=== PATIENT | male | born 1945 | race Caucasian/White ===

== ENCOUNTER → 2020-09-15 | Outpatient (CLI) | payer MEDICARE, OTHER ==
[~2020-09-15] MED LIST: DICL25TA PO; GADOBUTROL 10 MMOL/10 ML (GADAVIST) VIAL IV ONE; TAMS0.4C2 PO; TMSL.4C PO
[2020-09-15 12:37] LABS: BUN/CREATININE RATIO 26; CREATININE SERUM 1.02 MG/DL (0.60-1.30); GFR ESTIMATED > 60
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
== END ==
LOC: RAD 13:15
PROVIDERS: ATTEND Family Medicine
DX: G93.9 Disorder of brain, unspecified (principal)
CPT/HCPCS: 36415; 70553; 82565; 84520

== ENCOUNTER 2020-10-14 11:18 | Inpatient (IN) | payer MEDICARE, OTHER ==
[~2020-10-14] VITALS: Ht 180.3 cm; Wt 85.0 kg
[~2020-10-14 11:18] MED LIST changes: -GADOBUTROL 10 MMOL/10 ML (GADAVIST) VIAL IV ONE
[2020-10-14] MEDS ORDERED: CALCIUM CARBONATE 500 MG (TUMS) TAB.CHEW PO PRN (12:30)
[2020-10-14] MEDS ORDERED: LACTULOSE SYRUP 10GM/15ML (ENULOSE) 30ML UDC PO PRN (12:30)
[2020-10-14] MEDS ORDERED: diphenhydrAMINE 25 MG TAB (BENADRYL) PO PRN (12:30)
[2020-10-14] MEDS ORDERED: FLEET ENEMA ADULT 1 EA BTL PR PRN (12:30)
[2020-10-14] MEDS ORDERED: MELATONIN 3 MG TABLET PO PRN (12:30)
[2020-10-14] MEDS ORDERED: ONDANSETRON 4 MG (ZOFRAN) ORAL DISSOLVE TAB PO PRN (12:30)
[2020-10-14] MEDS ORDERED: DOCUSATE SODIUM 100 MG (COLACE) CAP PO PRN (12:30)
[2020-10-14] MEDS ORDERED: LOPERAMIDE 2 MG (IMODIUM) TABLET PO PRN (12:30)
[2020-10-14] MEDS ORDERED: AMLO10TA4 PO ×2 (14:26→14:30)
[2020-10-14] MEDS ORDERED: MELA5CAP PO (14:29)
[2020-10-14] MEDS ORDERED: ACET325C7 PO (14:31)
[2020-10-14] MEDS ORDERED: ACHD5005 PO (14:34)
[2020-10-14] MEDS ORDERED: LEVE500T99 PO (14:36)
[2020-10-14] MEDS ORDERED: DEXA4TAB66 PO ×2 (14:40→14:42)
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
--- NOTE | 2020-10-14 16:43 | NUR ---
EVANGELINA MATTHEWS admitted to room 231, with an admitting diagnosis of NTBI; S/P CRANIOTOMY, on 10/14/2020 from [facility] via [facility], accompanied by ENVIRONMENTAL TECHNICAL OFFICER. EVANGELINA MATTHEWS introduced to surroundings, call light, bed controls, phone, TV, temperature control, lights, meal times, smoking policy, visitor policy, side rail policy, bathrooms and showers. Patient Rights given to patient in the handbook.EVANGELINA MATTHEWS verbalizes understanding that [facility] is not responsible for the loss or damage to any personal effects or valuables that are kept in the patients posession during their hospitalization. EVANGELINA MATTHEWS verbalizes understanding of Interdisciplinary Patient Education. Patient and/or family were informed about the Rapid Response Team and its purpose. Patient received Patient Rights Booklet, which includes Privacy Act Statement and Data Collection Information Summary.
[2020-10-14] MEDS ORDERED: NON-FORMULARY MEDICATION 1 EA EA (Melatonin 5 MG) PO PRN (17:45)
[2020-10-14] MEDS ORDERED: ACETAMINOPHEN 325 MG PO PRN (17:45)
[2020-10-14] MEDS ORDERED: MELATONIN 10 MG TABLET PO PRN (17:45)
[2020-10-14 18:00] VITALS: BP 140/80
[2020-10-14 18:23] VITALS: BP 140/80
[2020-10-14] MEDS ORDERED: LACTULOSE SYRUP 10GM/15ML (ENULOSE) 30ML UDC PO NR (19:00)
--- NOTE | 2020-10-14 19:27 | NUR ---
Bedside report received from TRISTAN ROSAS, assume care of pt
[2020-10-14 19:43] VITALS: BP 140/80
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
[2020-10-14 20:38] VITALS: BP 145/80
[2020-10-14] MEDS: LEVETIRACETAM 500 MG (KEPPRA) TAB PO SCH (20:46)
[2020-10-14] MEDS: SENNA W/DOCUSATE (SENOKOT S) TABLET PO SCH (20:46)
[2020-10-14] MEDS: DOCUSATE SODIUM 100 MG (COLACE) CAP PO SCH (20:46)
--- NOTE | 2020-10-14 20:46 | NUR ---
Pt took all laxatives & requested Dulcolax suppository, pt takes meds well with water
[2020-10-14] MEDS: polyethylene glycoL POWDER 17 GM (MIRALAX) PACK PO SCH (20:51)
[2020-10-14] MEDS: amLODIPine 10 MG (NORVASC) TAB PO SCH (20:54)
[2020-10-14] MEDS: BISACODYL 10 MG SUPP (DULCOLAX) PR PRN (20:56)
--- NOTE | 2020-10-14 22:15 | NUR ---
pt had large soft brown BM on bedpan, states feel so much better
[2020-10-15 05:29] VITALS: BP 149/70
[2020-10-15 06:36] LABS: BASOPHILS % (AUTO) 0 % (0-10); EOSINOPHILS % (AUTO) 0 % (0-10); HEMATOCRIT 41 % (40-54); HEMOGLOBIN 13.9 g/dL (13.3-17.7); LYMPHOCYTES # (AUTO) 0.5 10^3/uL (1.0-4.0); LYMPHOCYTES % (AUTO) 3 % (12-44); MEAN CORPUSCULAR HEMOGLOBIN 31 pg (25-34); MEAN CORPUSCULAR HGB CONC 34 g/dL (32-36); MEAN CORPUSCULAR VOLUME 90 fL (80-99); MEAN PLATELET VOLUME 9.5 fL (9.0-12.2); MONOCYTES # (AUTO) 0.8 10^3/uL (0.0-1.0); MONOCYTES % (AUTO) 5 % (0-12); NEUTROPHILS % (AUTO) 89 % (42-75); PLATELET COUNT 178 10^3/uL (130-400); WHITE BLOOD COUNT 15.8 10^3/uL (4.3-11.0)
[2020-10-15 06:55] LABS: ALBUMIN 3.1 GM/DL (3.2-4.5); CHLORIDE 102 MMOL/L (98-107); POTASSIUM 4.4 MMOL/L (3.6-5.0); SODIUM 135 MMOL/L (135-145)
[2020-10-15 06:56] LABS: CALCIUM 8.3 MG/DL (8.5-10.1)
[2020-10-15 06:57] LABS: GLUCOSE 117 MG/DL (70-105)
[2020-10-15 06:58] LABS: TOTAL PROTEIN 5.5 GM/DL (6.4-8.2)
[2020-10-15 06:59] LABS: BILIRUBIN,TOTAL 0.5 MG/DL (0.1-1.0); CARBON DIOXIDE 25 MMOL/L (21-32)
[2020-10-15 07:01] LABS: ALKALINE PHOSPHATASE 51 U/L (40-136); CREATININE SERUM 0.72 MG/DL (0.60-1.30); GFR ESTIMATED > 60
[2020-10-15 07:02] LABS: BUN/CREATININE RATIO 51
[2020-10-15 07:04] LABS: ALANINE AMINOTRANSFERASE 13 U/L (0-55)
[2020-10-15 07:05] LABS: BAND NEUTROPHILS 1 %; EOSINOPHILS % (MANUAL) 2 %; LYMPHOCYTES % (MANUAL) 5 %; MONOCYTES % (MANUAL) 7 %; NEUTROPHILS % (MANUAL) 85 %
[2020-10-15 07:06] LABS: RBC MORPH NORMAL
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
[2020-10-15] MEDS: SENNA W/DOCUSATE (SENOKOT S) TABLET PO SCH ×2 (09:25→21:37)
[2020-10-15] MEDS: polyethylene glycoL POWDER 17 GM (MIRALAX) PACK PO SCH ×2 (09:25→21:37)
[2020-10-15] MEDS: LEVETIRACETAM 500 MG (KEPPRA) TAB PO SCH ×2 (09:25→21:24)
[2020-10-15] MEDS: TAMSULOSIN 0.4 MG (FLOMAX) CAP PO SCH (09:25)
[2020-10-15] MEDS: DOCUSATE SODIUM 100 MG (COLACE) CAP PO SCH ×2 (09:25→21:37)
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
--- NOTE | 2020-10-15 11:52 | Individualized Plan of Care ---
Individualized Plan of Care Rehab Nursing IPOC Order Admission Date Oct 14, 2020 at 16:15 Current Orders Orders Admission Order(Inpt,Obs,Sdc) (10/14/20 12:28) Vital Signs: Per Unit Policy ( 08,16,00 (10/14/20 12:28) Lenin Aguilar 09,21 (10/14/20 12:28) Sequential Compression Device Q4H (10/14/20 12:28) Line Worker-Inpt Rehab Con (10/14/20 12:28) Rehab Nursing Orders-Ipoc (10/14/20 12:28) Physical Therapy Rehab Orders (10/14/20 12:28) Occupational Therapy Rehab Ord (10/14/20 12:28) Speech Therapy Rehab Orders (10/14/20 12:28) Cbc With Automated Diff (10/15/20 06:00) Comprehensive Metabolic Panel (10/15/20 06:00) General/Regular (10/14/20 Lunch) Intake & Output 06,14,22 (10/14/20 12:28) Precautions (Aru) (10/14/20 12:28) Weekly Weight WEEK (10/14/20 12:28) Rehab-Intensity Of Therapy (10/14/20 12:28) Initiate Admission Nursing Pro .admission (10/14/20 12:28) Alprazolam Tablet (Xanax Tablet) (10/14/20 12:30) Calcium Carbonate Chew Tablet (Antacid C (10/14/20 12:30) Diphenhydramine Tablet (Benadryl Tablet) (10/14/20 12:30) Docusate Sodium Capsule (Colace Capsule) (10/14/20 21:00) Docusate Sodium Capsule (Colace Capsule) (10/14/20 12:30) Bisacodyl Suppository (Dulcolax Supposit (10/14/20 12:30) Lactulose Oral Solution (Enulose Oral So (10/14/20 12:30) Na Phos/Na Biphos Enema (Fleet Enema Miles (10/14/20 12:30) Guaifenesin/Codeine Syrup (Robitussin Ac (10/14/20 12:30) Loperamide Tablet (Imodium Tablet) (10/14/20 12:30) Melatonin Tablet (Melatonin Tablet) (10/14/20 12:30) Polyethylene Glycol Powder Pkt (Miralax (10/14/20 21:00) Ondansetron Oral Dissolve Tab (Zofran (10/14/20 12:30) Senna S Tablet (Senokot S Tablet) (10/14/20 21:00) Code/Resuscitation (10/14/20 12:28) Initiate Admission Nursing Pro .admission (10/14/20 12:28) Admission Arrival Bed Request (10/14/20 16:32) Patient Visit (10/14/20 ) Pt Eval Moderate Complexity (10/14/20 ) Amlodipine Tablet (Norvasc Tablet) (10/14/20 21:00) Dexamethasone Tablet (Decadron Tablet) (10/14/20 17:45) Dexamethasone Tablet (Decadron Tablet) (10/14/20 17:45) Hydrocodone/Apap 5/325 Tablet (Lortab 5 (10/14/20 17:45) Levetiracetam Tablet (Keppra Tablet) (10/14/20 21:00) Tamsulosin Capsule (Flomax Capsule) (10/15/20 09:00) (Nf) Acetaminophen (Tylenol) (10/14/20 17:45) (Nf) Melatonin (10/14/20 17:45) Melatonin Tablet (Melatonin) (10/14/20 17:45) Acetaminophen Tablet/Caplet (Tylenol T (10/14/20 17:45) Dexamethasone Tablet (Decadron Tablet) (10/14/20 22:00) Dexamethasone Tablet (Decadron Tablet) (10/16/20 21:00) Dexamethasone Tablet (Decadron Tablet) (10/18/20 21:00) Dexamethasone Tablet (Decadron Tablet) (10/21/20 09:00) Lactulose Oral Solution (Enulose Oral So (10/14/20 19:00) Ambulate 08,,20 (10/14/20 19:49) Sequential Compression Device Q4H (10/14/20 19:49) Dvt/Vte Risk - Notifiy Physici Q4H (10/14/20 19:49) Manual Differential (10/15/20 06:25) Code/Resuscitation (10/15/20 06:48) Patient Visit (10/15/20 ) Gait Training, Ea 15 Min (10/15/20 ) Functional Activities, Ea 15 (10/15/20 ) Exercise Therap, Ea 15 Min (10/15/20 ) Request Ot Additional Orders (10/15/20 17:55) Staple/Suture Removal (10/26/20 08:00) Nursing Communication (Order) (10/15/20 17:55) Rehab Nursing Orders: Ongoing Assess. of Cognitive Status, Ongoing Assess. of Function Status, Bladder Management, Bladder Scan, Bladder Training, Bowel Management, Bowel Training, Disease Management & Educaiton, DVT Prophylaxis, F all Prevention, Fluid/Electrolyte/Nutrition Mgmt, Infection Prevention, Medication Management & Education, Management of Risks & Complications, Management of Skin Intergrity, Nutrition Management, Pain Management, Patient/Family Support, Safety Management Intensity of Therapy to be met Patient to be seen: Min.3h per day/5 of 7d PT IPOC Problem List: Activity Tolerance, Functional Strength, Safety, Balance, Gait, Transfer, Bed Mobility, ROM Treatment Plan: Continue Plan of Care Bed Mobility, Education, Functional Activity Jerome, Functional Strength, Group Therapy, Gait, Safety, Therapeutic Exercise, Transfers Treatment Duration: Nov 04, 2020 Frequency: At least 5 of 7 days/Wk (IRF) Estimated Hrs Per Day: 1.5 hours per day OT IPOC Problems: Decreased Activ Tolerance, Decreased UE Strength, Dependent Transfers, Impaired Bed Mobility, Impaired Funct Balance OT Treatment, Training and Edu: Yes Plan of Care: ADL Retraining, Caregiver Training, Concurrent Therapy, Functional Mobility, Group Exercise/Act as Ind, UE Funct Exercise/Act, UE N euromus Re-Ed/Coord, W/C Management Training Treatment Duration: Nov 05, 2020 Frequency: At least 5 of 7 days/Wk (IRF) Estimated Hrs Per Day: 1.[address] IPOC Speech Therapy Treatment Plan: Modify Plan, See Comments Treatment Duration: Oct 16, 2020 Frequency: Modified Program (IRF) Estimated Hrs Per Day: 1 hour per day Line Worker/Case Mgmt Line Worker/Case Managemen: Discharge Planning Dietitian/Assistant Site Manager Dietitian/Assistant Site Manager to monitor nutritional status and make changes and/or recommendations as needed and work with speech pathology on dietary upgrades as the occur. Physician IPOC Medical Issues being managed closely and that require the 24 hour availability of a physician: Recent craniotomy and resection of brain mass will have increased risk of seizures and meningitis and will be monitored closely 20/05 Medical Issues: Bowel/Bladder Function, DVT Prophylaxis, Falls Precautions, Fluid/Electrolyte/Nutrition Balance, Infection Protection, Pain Management, Wound Care Brief Synthesis of Preadmission Screen, Post-Admission Evaluation, and Therapy Evaluations: PT OT will focus on regaining strength on right side and ST will help with expressive aphasia in order to return home to live with Medical Prognosis: Fair to good Anticipated Length of Stay: 21 days RENEE ELIZONDO DO Oct 15, 2020 11:52
--- NOTE | 2020-10-15 12:18 | Physical Therapy Daily Note ---
PT Daily Note-Current Subjective Pt EOB with OT, agreeable. Pt very motivated and states, "I feel like I am doing better even than I was yesterday". Denied pain Mental Status Patient Orientation: Person, Place, Time, Situation Transfers SCALE: Activities may be completed with or without assistive devices. 2-Rnjtsgkwig-homclkg completes the activity by him/herself with no assistance from a helper. 5-Set-up or Clean-up Assistance-helper sets up or cleans up; patient completes activity. [place] assists only prior to or following the activity. 4-Supervision or Touching Assistance-helper provides verbal cues and/or touching/steadying and/or contact guard assistance as patient completes activity. Assistance may be provided throughout the activity or intermittently. 3-Partial/Moderate Assistance-helper does LESS THAN HALF the effort. [place] lifts, holds or supports trunk or limbs, but provides less than half the effort. 2-Substantial/Maximal Assistance-helper does MORE THAN HALF the effort. [place] lifts or holds trunk or limbs and provides more than half the effort. 7-Rmkgfnrlc-rfmbbv does ALL the effort. Patient does none of the effort to complete the activity. Or, the assistance of 2 or more helpers is required for the patient to complete the activity. If activity was not attempted, code reason: 7-Patient Refused. 9-Not Applicable-not attempted and the patient did not perform the activity before the current illness, exacerbation or injury. 10-Not Attempted due to Environmental Limitations-(lack of equipment, weather restraints, etc.). 88-Not Attempted due to Medical Conditions or Safety Concerns. Sit to Lying (QC): 5 Sit to Stand (QC): 4 Chair/Toa-ox-Cmdfc Xfer(QC): 4 Sit<->stand with max VCS for sequencing, frequently needing reminders to attend to position of (R) LE before attempting to stand. Sit<->stand with mod-min A x 1 for transfer to/from shower chair and with dressing. Pt verbalizes "I am leaning to the (R), now back" and slowly able to self correct with min a x 1 for balance. Weight Bearing Right Lower Extremity: Right Full Weight Bearing Left Lower Extremity: Left Full Weight Bearing Gait Training Does the Patient Walk?: Yes Distance: 8' Walk 10 feet (QC): 1 Walk 50 ft with 2 Turns(QC): 88 Walk 150 ft (QC): 88 Walking 10ft/uneven surface-QC: 88 Gait Persons Needed: 2 Gait Assistive Device: Parallel Bars Pt ambulated 8' x 8 trips in // bars with [facility] following, assist x 2. Max VCS for sequencing and to attend to (R) UE. OT assisting with advancement of (R) UE, PT assisting with WS and advancement of (R) LE. Inconsistent but Pt able to initiate hip and knee flexion on (R) but insufficient to clear toes during swing. Attempted gait with (B) METALIZING SUPERVISOR, Pt unable to advance (R) LE (I). Exercises Supine Ex: Ankle pumps, Quad Set, Glut sets, Heel Slides, Short Arc Quads, Hip abd/add Supine Reps: 20 Treatments Gait training in // bars, transfer training in room and in shower room, (R) LE exercise with tapping for facilitation. In bed post treatment with all needs met. Assessment Current Status: Good Progress Pt tolerated very well. Fatigued but very motivated. Improved (I) with transfers. Multiple cues to attend to (R) UE/LE PT Short Term Goals Short Term Goals Time Frame: Oct 21, 2020 Roll Left & Right: 4 Sit to lyin Lying to sitting on side of be: 3 Sit to stand: 3 Chair/xqo-us-znwab transfer: 3 Walk 10 feet: 3 PT Care Home Goals Care Home Goals PT Care Home Goals Time Frame: Nov 04, 2020 Roll Left & Right (QC): 4 (SBA) Sit to Lying (QC): 4 (SBA) Lying-Sitting on Side/Bed(QC): 4 (SBA) Sit to Stand (QC): 4 (CGA) Chair/Ofb-nx-Zeafu Xfer(QC): 4 (CGA) Toilet Transfer (QC): 4 (CGA) Car Transfer (QC): 4 (CGA) Does the Patient Walk: No and Walking Goal IS indicated Walk 10 feet (QC): 3 (Yue) Walk 50ft with 2 Turns (QC): 3 (Yue) Walk 150 ft (QC): 88 Walking 10ft on Uneven Surface: 88 1 Step (curb) (QC): 88 4 Steps (QC): 88 12 Steps (QC): 88 Picking up an Object (QC): 88 Wheel 50 feet with 2 turns (QC: 6 Wheel 150 feet: 6 PT Plan Problem List Problem List: Activity Tolerance, Functional Strength, Safety, Balance, Gait, Transfer, Bed Mobility Treatment/Plan Treatment Plan: Continue Plan of Care Treatment Plan: Bed Mobility, Education, Functional Activity Jerome, Functional Strength, Group Therapy, Gait, Safety, Therapeutic Exercise, Transfers Treatment Duration: Nov 04, 2020 Frequency: At least 5 of 7 days/Wk (IRF) Estimated Hrs Per Day: 1.5 hours per day Patient and/or Family Agrees t: Yes Safety Risks/Education Patient Education: Gait Training Teaching Recipient: Patient Teaching Methods: Demonstration, Discussion Response to Teaching: Verbalize Understanding, Return Demonstration, Reinforcement Needed Time/GCodes Time In: 0740 Time Out: 0910 Total Billed Treatment Time: 90 Total Billed Treatment 1, GT x 40', FA x 30', Ex x 20' Co-treat with OT due to level of skilled assist required, decreased activity tolerance. OT addresses ADL status, RUE placement/ movement/ strength, problem solving, attention as PT addresses LE movement, fx transfers, balance, etc. RL DUNCAN DPT Oct 15, 2020 12:18
[2020-10-15 17:20] VITALS: BP 137/76
--- NOTE | 2020-10-15 19:26 | NUR ---
Bedside report received from TRISTAN ROSAS, assume care of pt
[2020-10-15 21:20] VITALS: BP 151/83
--- NOTE | 2020-10-15 21:24 | NUR ---
Pt refused Colace, Miralax & Senokot, takes meds well with water
[2020-10-15] MEDS: amLODIPine 10 MG (NORVASC) TAB PO SCH (21:28)
[2020-10-16 05:50] VITALS: BP 149/73
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
[2020-10-16] MEDS: polyethylene glycoL POWDER 17 GM (MIRALAX) PACK PO SCH ×2 (08:37→21:10)
[2020-10-16] MEDS: SENNA W/DOCUSATE (SENOKOT S) TABLET PO SCH ×2 (08:37→21:10)
[2020-10-16] MEDS: DOCUSATE SODIUM 100 MG (COLACE) CAP PO SCH ×2 (08:38→21:09)
[2020-10-16] MEDS: LEVETIRACETAM 500 MG (KEPPRA) TAB PO SCH ×2 (08:38→21:03)
[2020-10-16] MEDS: TAMSULOSIN 0.4 MG (FLOMAX) CAP PO SCH (08:38)
--- NOTE | 2020-10-16 13:30 | NUR ---
PER DR. ELIZONDO, SKIP TODAY'S 1400 DOSE OF DECADRON & START 4MG PO BID 0900 & 1700, BEGINNING 10/16/20 @1700.
[2020-10-16 17:36] VITALS: BP 121/77
--- NOTE | 2020-10-16 19:21 | NUR ---
Bedside report received from TRISTAN ROSAS, assume care of pt
--- NOTE | 2020-10-16 20:40 | NUR ---
Pt had large soft brown stool on bedpan
[2020-10-16] MEDS: ZOLPIDEM 5 MG (AMBIEN) TAB PO SCH (21:03)
--- NOTE | 2020-10-16 21:03 | NUR ---
Pt refused Colace, Miralax & Senokot, takes meds well with water
[2020-10-16] MEDS: amLODIPine 10 MG (NORVASC) TAB PO SCH (21:07)
[2020-10-17 05:52] LABS: BASOPHILS % (AUTO) 0 % (0-10); EOSINOPHILS % (AUTO) 0 % (0-10); HEMATOCRIT 43 % (40-54); HEMOGLOBIN 14.4 g/dL (13.3-17.7); LYMPHOCYTES % (AUTO) 9 % (12-44); MEAN CORPUSCULAR HEMOGLOBIN 31 pg (25-34); MEAN CORPUSCULAR HGB CONC 34 g/dL (32-36); MEAN CORPUSCULAR VOLUME 91 fL (80-99); MEAN PLATELET VOLUME 9.2 fL (9.0-12.2); MONOCYTES # (AUTO) 0.8 10^3/uL (0.0-1.0); MONOCYTES % (AUTO) 8 % (0-12); NEUTROPHILS # (AUTO) 8.7 10^3/uL (1.8-7.8); NEUTROPHILS % (AUTO) 78 % (42-75); PLATELET COUNT 177 10^3/uL (130-400); WHITE BLOOD COUNT 11.1 10^3/uL (4.3-11.0)
[2020-10-17 05:54] VITALS: BP 145/84
[2020-10-17 06:09] LABS: ALANINE AMINOTRANSFERASE 14 U/L (0-55); ALBUMIN 3.1 GM/DL (3.2-4.5); ALKALINE PHOSPHATASE 48 U/L (40-136); BILIRUBIN,TOTAL 0.6 MG/DL (0.1-1.0); BUN/CREATININE RATIO 44; CARBON DIOXIDE 24 MMOL/L (21-32); CHLORIDE 102 MMOL/L (98-107); CREATININE SERUM 0.78 MG/DL (0.60-1.30); GFR ESTIMATED > 60; GLUCOSE 80 MG/DL (70-105); POTASSIUM 4.3 MMOL/L (3.6-5.0); SODIUM 134 MMOL/L (135-145); TOTAL PROTEIN 5.4 GM/DL (6.4-8.2)
--- NOTE | 2020-10-17 09:00 | NUR ---
VERY PLEASANT AND COOPERATIVE. STATES SLEPT MUCH BETTER WITH AMBIEN LAST NIGHT. STATES SPEECH IS BETTER "IF I REALLY CONCENTRATE". FEELS RIGHT LEG IS "TOTALLY ". FEELS NO IMPROVEMENT IN RIGHT ARM. DENIES PAIN.
[2020-10-17] MEDS: TAMSULOSIN 0.4 MG (FLOMAX) CAP PO SCH (09:02)
[2020-10-17] MEDS: LEVETIRACETAM 500 MG (KEPPRA) TAB PO SCH ×2 (09:03→21:30)
[2020-10-17] MEDS: polyethylene glycoL POWDER 17 GM (MIRALAX) PACK PO SCH ×2 (09:04→21:30)
[2020-10-17] MEDS: DOCUSATE SODIUM 100 MG (COLACE) CAP PO SCH ×2 (09:04→21:30)
[2020-10-17] MEDS: SENNA W/DOCUSATE (SENOKOT S) TABLET PO SCH ×2 (09:04→21:30)
--- NOTE | 2020-10-17 09:05 | Physical Therapy Daily Note ---
PT Daily Note-Current Subjective Pt. agrees to Rx, states he is ready to work hard and get home. Pain Location: No Pain Reported Mental Status Patient Orientation: Normal For Age Attachments: Other-See Comments (mask while out of room) Transfers SCALE: Activities may be completed with or without assistive devices. 2-Yiprxvfsqv-hvlagmo completes the activity by him/herself with no assistance from a helper. 5-Set-up or Clean-up Assistance-helper sets up or cleans up; patient completes activity. [place] assists only prior to or following the activity. 4-Supervision or Touching Assistance-helper provides verbal cues and/or touching/steadying and/or contact guard assistance as patient completes activity. Assistance may be provided throughout the activity or intermittently. 3-Partial/Moderate Assistance-helper does LESS THAN HALF the effort. [place] lifts, holds or supports trunk or limbs, but provides less than half the effort. 2-Substantial/Maximal Assistance-helper does MORE THAN HALF the effort. [place] lifts or holds trunk or limbs and provides more than half the effort. 9-Vmxtoargs-ikgmtq does ALL the effort. Patient does none of the effort to complete the activity. Or, the assistance of 2 or more helpers is required for the patient to complete the activity. If activity was not attempted, code reason: 7-Patient Refused. 9-Not Applicable-not attempted and the patient did not perform the activity before the current illness, exacerbation or injury. 10-Not Attempted due to Environmental Limitations-(lack of equipment, weather restraints, etc.). 88-Not Attempted due to Medical Conditions or Safety Concerns. Roll Left & Right (QC): 3 Lying to Sitting/Side of Bed(Q: 4 Sit to Stand (QC): 3 Chair/Hce-es-Dtema Xfer(QC): 4 Toilet Transfer (QC): 3 PT/OT co Rx for coordination of trunk, UEs and LEs for TRFs and stance and ADLs and exercise Weight Bearing Right Lower Extremity: Right Full Weight Bearing Left Lower Extremity: Left Full Weight Bearing Gait Training Does the Patient Walk?: No and Walking Goal IS indicated Wheelchair Training Does the Pt Use a Wheelchair?: Yes Wheel 50 ft with 2 turns (QC): 4 Type of Wheelchair: Manual pt. requires assist to lack brakes and to affix RLE leg support off on Exercises Supine Ex: Ankle pumps (assisted right), Rolling (assisted), Heel Slides (tesfaye norma right), Straight leg raise (assisted right), Hip abd/add (assisted right) Supine Reps: 15 Seated Therapy Exercises: Ankle pumps, Sit to stand, Long arc quads, Hip flexion Seated Reps: 12 NuStep Minutes: 10 NuStep Workload: 3 Treatments co Rx PT OT for TRFs, w/c mobility, sit to stand and pre gait activities and exercise with alternating UE and LE movement simulating gait in sitting position Assessment Current Status: Good Progress gives full effort, needs redirected to focus PT Short Term Goals Short Term Goals Time Frame: Oct 21, 2020 Roll Left & Right: 4 Sit to lyin Lying to sitting on side of be: 3 Sit to stand: 3 Chair/ujn-qc-zpauf transfer: 3 Walk 10 feet: 3 PT Motor Adjuster Goals Residential Goals PT Motor Adjuster Goals Time Frame: Nov 04, 2020 Roll Left & Right (QC): 4 (SBA) Sit to Lying (QC): 4 (SBA) Lying-Sitting on Side/Bed(QC): 4 (SBA) Sit to Stand (QC): 4 (CGA) Chair/Rso-tm-Xdpus Xfer(QC): 4 (CGA) Toilet Transfer (QC): 4 (CGA) Car Transfer (QC): 4 (CGA) Does the Patient Walk: No and Walking Goal IS indicated Walk 10 feet (QC): 3 (Yue) Walk 50ft with 2 Turns (QC): 3 (Yue) Walk 150 ft (QC): 88 Walking 10ft on Uneven Surface: 88 1 Step (curb) (QC): 88 4 Steps (QC): 88 12 Steps (QC): 88 Picking up an Object (QC): 88 Wheel 50 feet with 2 turns (QC: 6 Wheel 150 feet: 6 PT Plan Treatment/Plan Treatment Plan: Continue Plan of Care Treatment Plan: Bed Mobility, Education, Functional Activity Jerome, Functional Strength, Group Therapy, Gait, Safety, Therapeutic Exercise, Transfers Treatment Duration: Nov 04, 2020 Frequency: At least 5 of 7 days/Wk (IRF) Estimated Hrs Per Day: 1.5 hours per day Patient and/or Family Agrees t: Yes Safety Risks/Education Patient Education: Transfer Techniques, Correct Positioning, W/C Management, Disease Process, Safety Issues Teaching Recipient: Patient Teaching Methods: Demonstration, Discussion Response to Teaching: Verbalize Understanding, Return Demonstration, Reinforcement Needed Time/GCodes Time In: 800 Time Out: 900 Total Billed Treatment Time: 60 Total Billed Treatment 1,FA30m,EX15m,WC15m (co Rx 60 min with OT) SHEKHAR MUNIZ ICE DELIVERY DRIVER Oct 17, 2020 09:05
--- NOTE | 2020-10-17 09:41 | Occupational Ther Daily Note ---
OT Current Status-Daily Note Subjective Pt laying in bed, agreeable to therapy tx. Self Care Instruction: Shower neck down until 10/17/2020. Starting 10/18/2020 Baby shampoo to wash daily, pat dry and leave open to air. Do not submerge in water for 4 weeks. Do not apply ointment, cream, or lotion to incision line ADL-Treatment Therapy Code Descriptions/Definitions Functional [place] Measure: 0=Not Assessed/NA 4=Minimal Assistance 1=Total Assistance 5=Supervision or Setup 2=Maximal Assistance 6=Modified [place] 3=Moderate Assistance 7=Complete IndependenceSCALE: Activities may be completed with or without assistive devices. 2-Nfawwkbvko-fecnrmz completes the activity by him/herself with no assistance from a helper. 5-Set-up or Clean-up Assistance-helper sets up or cleans up; patient completes activity. [place] assists only prior to or following the activity. 4-Supervision or Touching Assistance-helper provides verbal cues and/or touching/steadying and/or contact guard assistance as patient completes activity. Assistance may be provided throughout the activity or intermittently. 3-Partial/Moderate Assistance-helper does LESS THAN HALF the effort. [place] lifts, holds or supports trunk or limbs, but provides less than half the effort. 2-Substantial/Maximal Assistance-helper does MORE THAN HALF the effort. [place] lifts or holds trunk or limbs and provides more than half the effort. 9-Ptyurwlal-unryyi does ALL the effort. Patient does none of the effort to complete the activity. Or, the assistance of 2 or more helpers is required for the patient to complete the activity. If activity was not attempted, code reason: 7-Patient Refused. 9-Not Applicable-not attempted and the patient did not perform the activity before the current illness, exacerbation or injury. 10-Not Attempted due to Environmental Limitations-(lack of equipment, weather restraints, etc.). 88-Not Attempted due to Medical Conditions or Safety Concerns. Other Treatment OT/PT cotreat due to skill of 2 clinicians required which a rehabilitation tech could not perform in order to coordinate UE/LE with movements, and due to pt's decreased mobility, ambulation, strength and endurance. OT focused on UE placement, cues for sequencing and safety, PT focused on LEs, gross overall movements, and ambulation. Pt transferred supine to sit EOB, then to stood at EOB. Pt slightly impulsive, attempting to position self for transfer when pt asked to kick his leg forward. Pt then transferred to w/c via SPT. RLE leg rest placed on w/c, pt able to self-propell w/c to therapy gym using LUE/LLE. Pt transferred to NuStep. In order to focus on bilateral integration and UE coordination, pt completed x10 mins on NuStep using BUE/BLEs. Pt required cues throughout task to focus on gripping R hand onto handle. Pt transferred to w/c. x10 reps AAROM RUE, shoulder flexion, elbow flexion/extension, and finger flexion/extension. Pt fatigued with increased reps requiring more assist from therapist. Pt then completed x2 sit to stands at parallel bars. Pt propellled w/c back to his room, transferred to recliner, then to BS after pt indicates he needed to have a BM. Post tx, pt seated on BSC, call light in reach and all needs met. SPT towards L side throughout tx. Pt required assist to lock brakes on w/c Education OT Patient Education: Correct positioning, Energy conservation, Modified ADL techniques, Progress toward Goal/Update tx plan, Purpose of tx/functional activities, W/C management Teaching Recipient: Patient Teaching Methods: Discussion Response to Teaching: Verbalize Understanding OT Short Term Goals Short Term Goals Toileting hygiene: 3 Shower/bathe self: 4 Lower body dressin Putting on/taking off footwear: 3 OT Head Cleaning [place] Goals Head Cleaning [place] Goals Time Frame: Nov 05, 2020 Eating (QC): 6 Oral Hygiene (QC): 6 Toileting Hygiene (QC): 6 Shower/Bathe Self (QC): 5 Upper Body Dressing (QC): 6 Lower Body Dressing (QC): 3 On/Off Footwear (QC): 5 Additional Goals: 1-Demonstrate ADL Tasks, 2-Verbalize Understanding, 3- ImproveStrength/Jerome 1=Demonstrate adherence to instructed precautions during ADL tasks. 2=Patient will verbalize/demonstrate understanding of assistive devices/modifications for ADL. 3=Patient will improve strength/tolerance for activity to enable patient to perform ADL's. OT Education/Plan Problem List/Assessment Assessment: Decreased Activ Tolerance, Decreased UE Strength, Impaired Funct Balance, Impaired I ADL's, Impaired Self-Care Skills, Restricted Funct UE ROM Discharge Recommendations Plan/Recommendations: Continue POC Treatment Plan/Plan of Care Patient would benefit from OT for education, treatment and training to promote independence in ADL's, mobility, safety and/or upper extremity function for ADL's. Plan of Care: ADL Retraining, Caregiver Training, Concurrent Therapy, Functional Mobility, Group Exercise/Act as Ind, UE Funct Exercise/Act, UE Neuromus Re-Ed/Coord, W/C Management Training Treatment Duration: Nov 05, 2020 Frequency: At least 5 of 7 days/Wk (IRF) Estimated Hrs Per Day: 1.5 hours per day Agreement: Yes Rehab Potential: Fair Time/GCodes Start Time: 08:00 Stop Time: 09:00 Total Time Billed (hr/min): 60 Billed Treatment Time 1, FA 4 ALBERTO VALENCIA OT Oct 17, 2020 09:41
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
--- NOTE | 2020-10-17 12:04 | ST Cognitive Linguistic Eval ---
Speech Evaluation-General Medical Diagnosis brain tumor, craniotomy Onset Date: Oct 12, 2020 Therapy Diagnosis Therapy Diagnosis: Cognitive-communication Precautions Precautions/Isolations: Fall Prevention, Standard Precautions Referral Referring Physician: Dr. Velásquez Reason for Referral: Evaluation/Treatment Medical History Reviewed History: Yes Social History Current Living Status: Spouse Speech PLF-Current Status Prior Level of Function Patient lives at home with his where he was independent prior to his surgery. Subjective Patient was cooperative with the cognitive assessment. Language Eval: Auditory Comprehends Simple Yes/No Ques: Functional Indent/Objects Multiple Guzmán: Functional Ident/Pics in Multiple Guzmán: Functional Follows 1-Step Commands: Functional Follows Complex Directions: Functional Follows General Conversations: Functional Language Eval: Verbal Language Completes Spontaneous Greeting: Functional Produces Auto, Serial Info: Functional Imitates Simple Words/Phrases: Functional Word Finding: Functional Requests Basic Needs: Functional States Basic Personal Info: Functional Expresses Complex Ideas: Functional Objective Cognitive Domain Attention: WNL Memory: WNL Problem Solving: Functional Executive Functions: WNL Visuospatial Skills: WNL Composite Severity Rating: WNL Clock Drawing Severity Rating: WNL Objective Formal/Standardized Tests [facility] Mental Status ([facility]) Results 28/30, within normal range of function Oral Motor/Speech Production Within Normal Limits Impression Patient is a 75 y/o male who was admitted to the [facility] s/p craniotomy. Patient's tumor could not be completely removed and has left the patient weak. Patient was given the SLUMS with a score of 28/30 obtained. This score is within the normal range of function and does not indicate further ST services at this time. Speech Patient Assess Expression of Ideas/Wants: Expression (4) Understanding Verbal Content: Understands (4) Brief Interview-Mental Status: Yes Repetition of Three Words: Three (3) Temporal Orientation: Year: Correct (3) Temporal Orientation: Month: Accurate within 5 days(2) Temporal Orientation: Day: Correct (1) Recall : Wear to say "Sock": Yes, no cue required (2) Recall : Color: Yes, no cue required (2) Recall : Bed: Yes, no cue required (2) Memory/Recall Ability: Current season, Location of own room, That he or she is in a hsp/hsp unit Speech-Plan Patient/Family Goals Patient/Family Goals: Patient plans on returning to his home where he lives with his . Treatment Plan Speech Therapy Treatment Plan: Continue Plan of Care Treatment Duration: Oct 17, 2020 Frequency: 1 time per week Estimated Hrs Per Day: .5 hour per day Rehab Potential: Fair Barriers to Learning: None identified with cognitive function Pt/Family Agrees to Plan: Yes Safety Risks/Education Teaching Recipient: Patient Teaching Methods: Discussion Response to Teaching: Verbalize Understanding Education Topics Provided: Safety within his room Time Speech Therapy Time In: 11:00 Speech Therapy Time Out: 11:30 Total Billed Time: 30 Billed Treatment Time 1, SABIHA Lr Oct 17, 2020 12:04
--- NOTE | 2020-10-17 13:51 | Occupational Ther Daily Note ---
OT Current Status-Daily Note Subjective Pt agreeable to OT tx with focus on ADLs. ADL-Treatment Therapy Code Descriptions/Definitions Functional [place] Measure: 0=Not Assessed/NA 4=Minimal Assistance 1=Total Assistance 5=Supervision or Setup 2=Maximal Assistance 6=Modified [place] 3=Moderate Assistance 7=Complete IndependenceSCALE: Activities may be completed with or without assistive devices. 9-Yqpuntbbxx-wplatuo completes the activity by him/herself with no assistance from a helper. 5-Set-up or Clean-up Assistance-helper sets up or cleans up; patient completes activity. [place] assists only prior to or following the activity. 4-Supervision or Touching Assistance-helper provides verbal cues and/or touching/steadying and/or contact guard assistance as patient completes activity. Assistance may be provided throughout the activity or intermittently. 3-Partial/Moderate Assistance-helper does LESS THAN HALF the effort. [place] lifts, holds or supports trunk or limbs, but provides less than half the effort. 2-Substantial/Maximal Assistance-helper does MORE THAN HALF the effort. [place] lifts or holds trunk or limbs and provides more than half the effort. 9-Ikpzjxohd-vluxfl does ALL the effort. Patient does none of the effort to complete the activity. Or, the assistance of 2 or more helpers is required for the patient to complete the activity. If activity was not attempted, code reason: 7-Patient Refused. 9-Not Applicable-not attempted and the patient did not perform the activity before the current illness, exacerbation or injury. 10-Not Attempted due to Environmental Limitations-(lack of equipment, weather restraints, etc.). 88-Not Attempted due to Medical Conditions or Safety Concerns. Oral Hygiene (QC): 4 (SBA, pt able to complete oral care at tray table) Other Treatment Pt completed sponge bath at bed level, washing BUEs, chest/abdomen, LEs and periarea. OT then assisted pt with washing his hair, without getting incision wet. Instructions from indicate pt is able to wash his incision with baby shampoo tomorrow, pt agreeable to showering tomorrow. Pt brushed his teeth with SBA. Post OT tx, pt laying in bed, call light in reach and all needs met. Education OT Patient Education: Correct positioning, Modified ADL techniques, Progress toward Goal/Update tx plan, Purpose of tx/functional activities Teaching Recipient: Patient Teaching Methods: Discussion Response to Teaching: Verbalize Understanding OT Short Term Goals Short Term Goals Toileting hygiene: 3 Shower/bathe self: 4 Lower body dressin Putting on/taking off footwear: 3 OT Intermediate Goals Riveting Machine Operator Goals Time Frame: Nov 05, 2020 Eating (QC): 6 Oral Hygiene (QC): 6 Toileting Hygiene (QC): 6 Shower/Bathe Self (QC): 5 Upper Body Dressing (QC): 6 Lower Body Dressing (QC): 3 On/Off Footwear (QC): 5 Additional Goals: 1-Demonstrate ADL Tasks, 2-Verbalize Understanding, 3- ImproveStrength/Jerome 1=Demonstrate adherence to instructed precautions during ADL tasks. 2=Patient will verbalize/demonstrate understanding of assistive devices/modifications for ADL. 3=Patient will improve strength/tolerance for activity to enable patient to perform ADL's. OT Education/Plan Problem List/Assessment Assessment: Decreased Activ Tolerance, Decreased UE Strength, Impaired I ADL's Discharge Recommendations Plan/Recommendations: Continue POC Treatment Plan/Plan of Care Patient would benefit from OT for education, treatment and training to promote independence in ADL's, mobility, safety and/or upper extremity function for ADL's. Plan of Care: ADL Retraining, Caregiver Training, Concurrent Therapy, Functional Mobility, Group Exercise/Act as Ind, UE Funct Exercise/Act, UE Neuromus Re-Ed/Coord, W/C Management Training Treatment Duration: Nov 05, 2020 Frequency: At least 5 of 7 days/Wk (IRF) Estimated Hrs Per Day: 1.5 hours per day Agreement: Yes Rehab Potential: Fair Time/GCodes Start Time: 13:00 Stop Time: 13:30 Total Time Billed (hr/min): 30 Billed Treatment Time 1, ADL 2 ALBERTO VALENCIA OT Oct 17, 2020 13:51
--- NOTE | 2020-10-17 14:00 | NUR ---
STATED WANTED HAIR CUT, BUT WHAT REALLY BOTHERED HIM WAS HIS GREASY HAIR. INCISION GENTLY WASHED BY O.T. WITH BABY SHAMPOO.
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
--- NOTE | 2020-10-17 14:22 | Physical Therapy Daily Note ---
PT Daily Note-Current Subjective Pt. in bed, agrees to bed ex with RLE. 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 Pain Location: No Pain Reported Mental Status Patient Orientation: Person, Place, Time, Situation Transfers SCALE: Activities may be completed with or without assistive devices. 5-Umuvrerqyr-pgisvvb completes the activity by him/herself with no assistance from a helper. 5-Set-up or Clean-up Assistance-helper sets up or cleans up; patient completes activity. [place] assists only prior to or following the activity. 4-Supervision or Touching Assistance-helper provides verbal cues and/or touching/steadying and/or contact guard assistance as patient completes activity. Assistance may be provided throughout the activity or intermittently. 3-Partial/Moderate Assistance-helper does LESS THAN HALF the effort. [place] lifts, holds or supports trunk or limbs, but provides less than half the effort. 2-Substantial/Maximal Assistance-helper does MORE THAN HALF the effort. [place] lifts or holds trunk or limbs and provides more than half the effort. 0-Jfxkepmqk-fezouk does ALL the effort. Patient does none of the effort to complete the activity. Or, the assistance of 2 or more helpers is required for the patient to complete the activity. If activity was not attempted, code reason: 7-Patient Refused. 9-Not Applicable-not attempted and the patient did not perform the activity before the current illness, exacerbation or injury. 10-Not Attempted due to Environmental Limitations-(lack of equipment, weather restraints, etc.). 88-Not Attempted due to Medical Conditions or Safety Concerns. Roll Left & Right (QC): 4 pt. pulled elf up in bed using LLE and LUE with bed flat and instructions Weight Bearing Right Lower Extremity: Right Full Weight Bearing Left Lower Extremity: Left Full Weight Bearing Exercises Supine Ex: Bridging (assisted on right), Ankle pumps (HC stretches on right), Quad Set, Rolling, Glut sets, Heel Slides (assisted on right), Short Arc Quads (assisted right), Scooting (up oin bed), D1 F/E UE, Straight leg raise (assisted on right), Hip abd/add (assisted on right) Supine Reps: 15 Assessment Current Status: Good Progress pleasant , gives full effort, emotionally labile today PT Short Term Goals Short Term Goals Time Frame: Oct 21, 2020 Roll Left & Right: 4 Sit to lyin Lying to sitting on side of be: 3 Sit to stand: 3 Chair/cep-gl-vwkoo transfer: 3 Walk 10 feet: 3 PT Intermediate Goals Intermediate Goals PT Intermediate Goals Time Frame: Nov 04, 2020 Roll Left & Right (QC): 4 (SBA) Sit to Lying (QC): 4 (SBA) Lying-Sitting on Side/Bed(QC): 4 (SBA) Sit to Stand (QC): 4 (CGA) Chair/Cqt-fa-Vbtky Xfer(QC): 4 (CGA) Toilet Transfer (QC): 4 (CGA) Car Transfer (QC): 4 (CGA) Does the Patient Walk: No and Walking Goal IS indicated Walk 10 feet (QC): 3 (Yue) Walk 50ft with 2 Turns (QC): 3 (Yue) Walk 150 ft (QC): 88 Walking 10ft on Uneven Surface: 88 1 Step (curb) (QC): 88 4 Steps (QC): 88 12 Steps (QC): 88 Picking up an Object (QC): 88 Wheel 50 feet with 2 turns (QC: 6 Wheel 150 feet: 6 PT Plan Treatment/Plan Treatment Plan: Continue Plan of Care Treatment Plan: Bed Mobility, Education, Functional Activity [place], Functional Strength, Group Therapy, Gait, Safety, Therapeutic Exercise, Transfers Treatment Duration: Nov 04, 2020 Frequency: At least 5 of 7 days/Wk (IRF) Estimated Hrs Per Day: 1.5 hours per day Patient and/or Family Agrees t: Yes Safety Risks/Education Patient Education: Correct Positioning Time/GCodes Time In: 1405 Time Out: 1420 Total Billed Treatment Time: 15 Total Billed Treatment 1,EX15m SHEKHAR MUNIZ PROGRAM CONSULTANT Oct 17, 2020 14:22
--- NOTE | 2020-10-17 15:48 | NUR ---
"RD ASSESSMENT PMHx: hypercholesterolemia; HTN; CA(brain); current - brain tumor with craniotomy and resection 10/12/2020 PT INTERACTION: Pt was awake and pleasant during nutrition assessment. Pt states current appetite is good. Note avg PO intake 96% x2d, per chart review. Pt states following a regular diet at home, and has no issues with chewing/swallowing food. Pt states no recent issues with nausea, vomiting, constipation, or diarrhea. Note last BM was 10/17, and pt currently on bowel regimen of colace BID, senna BID, and miralax BID, per chart review. Pt states no recent wt changes. Note unable to determine recent wt hx, per chart review. ABNORMAL NUTRITION-RELATED LAB VALUES LOW: Na 134; Ca 8.0; Pro 5.4; alb 3.1; HIGH: BUN 34; Est. kcal needs: 8542-9699 kcal | 20-25 kcal/kg Est. Pro needs: 71-89 g Pro | 0.8-1.0 g Pro/kg PES STATEMENT: Given current appetite and PO intake, no nutrition diagnosis at this time (NO-1.1). INTERVENTION: Continue with current diet order of Regular diet. Will continue to follow and reassess as pt needs, intake, and status change. Ana ÁLVAREZ, MS RD LD [phone] cell"
[2020-10-17 17:13] VITALS: BP 131/72
[2020-10-17] MEDS: ZOLPIDEM 5 MG (AMBIEN) TAB PO SCH (21:30)
[2020-10-17] MEDS: amLODIPine 10 MG (NORVASC) TAB PO SCH (21:30)
[2020-10-18 06:00] VITALS: BP 133/81
[2020-10-18] MEDS: LEVETIRACETAM 500 MG (KEPPRA) TAB PO SCH ×2 (08:03→20:56)
[2020-10-18] MEDS: TAMSULOSIN 0.4 MG (FLOMAX) CAP PO SCH (08:04)
[2020-10-18] MEDS: DOCUSATE SODIUM 100 MG (COLACE) CAP PO SCH ×2 (08:04→20:58)
[2020-10-18] MEDS: polyethylene glycoL POWDER 17 GM (MIRALAX) PACK PO SCH ×2 (08:04→20:56)
[2020-10-18] MEDS: SENNA W/DOCUSATE (SENOKOT S) TABLET PO SCH ×2 (08:04→20:57)
--- NOTE | 2020-10-18 10:12 | Occupational Ther Daily Note ---
OT Current Status-Daily Note Subjective Pt agreeable to OT tx with focus on showering. Pt did not report any pain. ADL-Treatment Therapy Code Descriptions/Definitions Functional [place] Measure: 0=Not Assessed/NA 4=Minimal Assistance 1=Total Assistance 5=Supervision or Setup 2=Maximal Assistance 6=Modified [place] 3=Moderate Assistance 7=Complete IndependenceSCALE: Activities may be completed with or without assistive devices. 7-Dpugulvien-xlaremq completes the activity by him/herself with no assistance from a helper. 5-Set-up or Clean-up Assistance-helper sets up or cleans up; patient completes activity. [place] assists only prior to or following the activity. 4-Supervision or Touching Assistance-helper provides verbal cues and/or touching/steadying and/or contact guard assistance as patient completes activity. Assistance may be provided throughout the activity or intermittently. 3-Partial/Moderate Assistance-helper does LESS THAN HALF the effort. [place] lifts, holds or supports trunk or limbs, but provides less than half the effort. 2-Substantial/Maximal Assistance-helper does MORE THAN HALF the effort. [place] lifts or holds trunk or limbs and provides more than half the effort. 1-Mnyugkgdv-ikcrlk does ALL the effort. Patient does none of the effort to complete the activity. Or, the assistance of 2 or more helpers is required for the patient to complete the activity. If activity was not attempted, code reason: 7-Patient Refused. 9-Not Applicable-not attempted and the patient did not perform the activity before the current illness, exacerbation or injury. 10-Not Attempted due to Environmental Limitations-(lack of equipment, weather restraints, etc.). 88-Not Attempted due to Medical Conditions or Safety Concerns. Shower/Bathe Self (QC): 4 (CGA in stand at GBS as pt washed periarea, OT assisted pt with managing shower head.) Upper Body Dressing (QC): 3 (Assist donning/doffing shirt over RUE) Lower Body Dressing (QC): 1 (2 person assist in stand for pant hike. Pt required assistance threading BLEs and pant hike) On/Off Footwear: 2 (Max A donning/doffing gripper socks.) Other Treatment [id number]:Pt laying in bed, transferred supine to sit EOB with mod A. Pt transferred to w/c via SPT towards L side, min A. Pt taken to bathroom, transferring to NC towards R side. Pt doffed clothes and completed shower. OT assisted pt with using baby shampoo to wash incision area and hair, pt then able to wash other body parts seated, CGA in stand at [facility] to wash periarea and buttocks. [id number] OT/PT cotreat due to skill of 2 clinicians that a vocational rehabilitation teacher could not perform in order to coordinate UE/LEs and due to pt's limitations in strength, endurance, mobility, and ambulation. Pt dried off, donned shirt and socks, then transferred to w/c SPT. Pt donned lower body clothing, x2 assist in stand for pant hike. RLE leg rest placed, pt propelled w/c to therapy gym. Pt stood at parallel bars, ambulating length of bars with w/c follow 6x8', and assistance with advancing RLE. Pt required cues with each stand for proper placement of RLE and RUE. Pt then completed 2 stands at platform walker, cues for hand placement. Pt transferred to therapy mat, completed core balance exerciese and weight shifts towards R & L side, and forward. Pt then completed x5 mins on NuStep in order to increase bilateral integration of UEs, pt required moderate cues to focus on R hand placement due to hand slipping off handle. Post tx, pt in gym with PT. OT Short Term Goals Short Term Goals Toileting hygiene: 3 Shower/bathe self: 4 Lower body dressin Putting on/taking off footwear: 3 OT Mcc Goals Mcc Goals Time Frame: Nov 05, 2020 Eating (QC): 6 Oral Hygiene (QC): 6 Toileting Hygiene (QC): 6 Shower/Bathe Self (QC): 5 Upper Body Dressing (QC): 6 Lower Body Dressing (QC): 3 On/Off Footwear (QC): 5 Additional Goals: 1-Demonstrate ADL Tasks, 2-Verbalize Understanding, 3- ImproveStrength/[place]ome 1=Demonstrate adherence to instructed precautions during ADL tasks. 2=Patient will verbalize/demonstrate understanding of assistive devices/modifications for ADL. 3=Patient will improve strength/tolerance for activity to enable patient to perform ADL's. OT Education/Plan Problem List/Assessment Assessment: Decreased Activ Tolerance, Decreased UE Strength, Impaired Funct Balance, Impaired I ADL's, Impaired Self-Care Skills, Restricted Funct UE ROM Discharge Recommendations Plan/Recommendations: Continue POC Treatment Plan/Plan of Care Patient would benefit from OT for education, treatment and training to promote independence in ADL's, mobility, safety and/or upper extremity function for ADL's. Plan of Care: ADL Retraining, Caregiver Training, Concurrent Therapy, Functional Mobility, Group Exercise/Act as Ind, UE Funct Exercise/Act, UE Neuromus Re-Ed/Coord, W/C Management Training Treatment Duration: Nov 05, 2020 Frequency: At least 5 of 7 days/Wk (IRF) Estimated Hrs Per Day: 1.5 hours per day Agreement: Yes Rehab Potential: Fair Time/GCodes Start Time: 08:00 Stop Time: 09:15 Total Time Billed (hr/min): 75 Billed Treatment Time [id number] OT tx (20'), [id number] cotreat (55') 1, ADL 2 (35'), FA 3 (40') ALBERTO VALENCIA OT Oct 18, 2020 10:12
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
--- NOTE | 2020-10-18 11:57 | Physical Therapy Daily Note ---
PT Daily Note-Current Subjective Pt. showering with OT, expresses he is very motivated to work with therapy today. Transfers SCALE: Activities may be completed with or without assistive devices. 9-Ugduepuscy-kczcokx completes the activity by him/herself with no assistance from a helper. 5-Set-up or Clean-up Assistance-helper sets up or cleans up; patient completes activity. [place] assists only prior to or following the activity. 4-Supervision or Touching Assistance-helper provides verbal cues and/or touching/steadying and/or contact guard assistance as patient completes activity. Assistance may be provided throughout the activity or intermittently. 3-Partial/Moderate Assistance-helper does LESS THAN HALF the effort. [place] lifts, holds or supports trunk or limbs, but provides less than half the effort. 2-Substantial/Maximal Assistance-helper does MORE THAN HALF the effort. [place] lifts or holds trunk or limbs and provides more than half the effort. 5-Qvmkhrzgy-fyneec does ALL the effort. Patient does none of the effort to complete the activity. Or, the assistance of 2 or more helpers is required for the patient to complete the activity. If activity was not attempted, code reason: 7-Patient Refused. 9-Not Applicable-not attempted and the patient did not perform the activity before the current illness, exacerbation or injury. 10-Not Attempted due to Environmental Limitations-(lack of equipment, weather restraints, etc.). 88-Not Attempted due to Medical Conditions or Safety Concerns. Sit to Lying (QC): 3 Sit to Stand (QC): 2 Chair/Ynj-ym-Qqcpy Xfer(QC): 2 Weight Bearing Right Lower Extremity: Right Full Weight Bearing Left Lower Extremity: Left Full Weight Bearing Gait Training Does the Patient Walk?: Yes Distance: 6 x 8 ft Gait Persons Needed: 2 Gait Assistive Device: Parallel Bars PT to advance R LE and min A with balance, w/c follow from OT and assist with R UE on // bars Wheelchair Training Does the Pt Use a Wheelchair?: Yes Type of Wheelchair: Manual 2 x 100 ft Exercises Seated Therapy Exercises: Ankle pumps, Long arc quads, Hamstring Curls Seated Reps: 15 NuStep Minutes: 10 NuStep Workload: 4 Treatments co tx with OT for skilled therapy during transfers, lower body dressing, gait, and mat exercises. Pt. working on trunk control while seated on mat, all directions. Assessment Current Status: Good Progress Pt. continues to require assist x 2 for skilled care with PT working on t ransfers, lower extremity control and OT's working on UE and dressing. Pt. had improved trunk control while working on sitting balance on mat. Pt. has signficant difficulty advancing R LE during gait and transfers and does have decreased safety awareness throughout session and with R UE. Pt. became increasingly fatigued during session, initially requiring min A with SPT vs. max A at end of session. Pt. in bed post session with call light and all needs met. PT Short Term Goals Short Term Goals Time Frame: Oct 21, 2020 Roll Left & Right: 4 Sit to lyin Lying to sitting on side of be: 3 Sit to stand: 3 Chair/wgr-ou-sbmns transfer: 3 Walk 10 feet: 3 PT Development Vice President Goals Development Vice President Goals PT Development Vice President Goals Time Frame: Nov 04, 2020 Roll Left & Right (QC): 4 (SBA) Sit to Lying (QC): 4 (SBA) Lying-Sitting on Side/Bed(QC): 4 (SBA) Sit to Stand (QC): 4 (CGA) Chair/Fpo-fa-Ceqkw Xfer(QC): 4 (CGA) Toilet Transfer (QC): 4 (CGA) Car Transfer (QC): 4 (CGA) Does the Patient Walk: No and Walking Goal IS indicated Walk 10 feet (QC): 3 (Yue) Walk 50ft with 2 Turns (QC): 3 (Yue) Walk 150 ft (QC): 88 Walking 10ft on Uneven Surface: 88 1 Step (curb) (QC): 88 4 Steps (QC): 88 12 Steps (QC): 88 Picking up an Object (QC): 88 Wheel 50 feet with 2 turns (QC: 6 Wheel 150 feet: 6 PT Plan Treatment/Plan Treatment Plan: Continue Plan of Care Treatment Plan: Bed Mobility, Education, Functional Activity [place], Functional Strength, Group Therapy, Gait, Safety, Therapeutic Exercise, Transfers Treatment Duration: Nov 04, 2020 Frequency: At least 5 of 7 days/Wk (IRF) Estimated Hrs Per Day: 1.5 hours per day Patient and/or Family Agrees t: Yes Time/GCodes Time In: 819 Time Out: 919 Total Billed Treatment Time: 60 Total Billed Treatment 1, GT 15', FA 45' MARJORIE BROOKE PT Oct 18, 2020 11:57
--- NOTE | 2020-10-18 13:53 | Occupational Ther Daily Note ---
OT Current Status-Daily Note Subjective Pt seated in w/c, agreeable to OT tx. ADL-Treatment Therapy Code Descriptions/Definitions Functional [place] Measure: 0=Not Assessed/NA 4=Minimal Assistance 1=Total Assistance 5=Supervision or Setup 2=Maximal Assistance 6=Modified [place] 3=Moderate Assistance 7=Complete IndependenceSCALE: Activities may be completed with or without assistive devices. 0-Dhhpzzpmgi-ekkzrbx completes the activity by him/herself with no assistance from a helper. 5-Set-up or Clean-up Assistance-helper sets up or cleans up; patient completes activity. [place] assists only prior to or following the activity. 4-Supervision or Touching Assistance-helper provides verbal cues and/or touching/steadying and/or contact guard assistance as patient completes activity. Assistance may be provided throughout the activity or intermittently. 3-Partial/Moderate Assistance-helper does LESS THAN HALF the effort. [place] lifts, holds or supports trunk or limbs, but provides less than half the effort. 2-Substantial/Maximal Assistance-helper does MORE THAN HALF the effort. [place] lifts or holds trunk or limbs and provides more than half the effort. 7-Ajcksznvh-xnmwol does ALL the effort. Patient does none of the effort to com plete the activity. Or, the assistance of 2 or more helpers is required for the patient to complete the activity. If activity was not attempted, code reason: 7-Patient Refused. 9-Not Applicable-not attempted and the patient did not perform the activity before the current illness, exacerbation or injury. 10-Not Attempted due to Environmental Limitations-(lack of equipment, weather restraints, etc.). 88-Not Attempted due to Medical Conditions or Safety Concerns. Oral Hygiene (QC): 4 (SBA seated at sink) Other Treatment Pt able to hold RLE up in air using LLE as OT positioned pt at sink. Pt brushed his teeth with SBA at sink, and used wash cloth to wash his face. OT positioned pt in w/c for transfer back to bed, towards L side. Pt able to transfer with min A, then transferred sit to supine assist with RLE. OT positioned RUE on pillow, and donned compression socks onto BLEs. Post tx, pt laying in bed, call light in reach and all needs met. Education OT Patient Education: Correct positioning, Modified ADL techniques, Progress toward Goal/Update tx plan, Purpose of tx/functional activities Teaching Recipient: Patient Teaching Methods: Discussion Response to Teaching: Verbalize Understanding OT Short Term Goals Short Term Goals Toileting hygiene: 3 Shower/bathe self: 4 Lower body dressin Putting on/taking off footwear: 3 OT Senior Care Goals Hazardous Materials Tanker Driver Goals Time Frame: Nov 05, 2020 Eating (QC): 6 Oral Hygiene (QC): 6 Toileting Hygiene (QC): 6 Shower/Bathe Self (QC): 5 Upper Body Dressing (QC): 6 Lower Body Dressing (QC): 3 On/Off Footwear (QC): 5 Additional Goals: 1-Demonstrate ADL Tasks, 2-Verbalize Understanding, 3- ImproveStrength/Jerome 1=Demonstrate adherence to instructed precautions during ADL tasks. 2=Patient will verbalize/demonstrate understanding of assistive devices/modifications for ADL. 3=Patient will improve strength/tolerance for activity to enable patient to perform ADL's. OT Education/Plan Problem List/Assessment Assessment: Decreased Activ Tolerance, Decreased UE Strength, Impaired Funct Balance, Impaired I ADL's, Impaired Self-Care Skills Discharge Recommendations Plan/Recommendations: Continue POC Treatment Plan/Plan of Care Patient would benefit from OT for education, treatment and training to promote independence in ADL's, mobility, safety and/or upper extremity function for ADL's. Plan of Care: ADL Retraining, Caregiver Training, Concurrent Therapy, Functional Mobility, Group Exercise/Act as Ind, UE Funct Exercise/Act, UE Neuromus Re-Ed/Coord, W/C Management Training Treatment Duration: Nov 05, 2020 Frequency: At least 5 of 7 days/Wk (IRF) Estimated Hrs Per Day: 1.5 hours per day Agreement: Yes Rehab Potential: Fair Time/GCodes Start Time: 13:30 Stop Time: 13:45 Total Time Billed (hr/min): 15 Billed Treatment Time 1, ADL ALBERTO VALENCIA OT Oct 18, 2020 13:53
--- NOTE | 2020-10-18 14:20 | Physical Therapy Daily Note ---
PT Daily Note-Current Subjective Pt. in bed and agrees to therapy, very motivated for therapy. Mental Status Patient Orientation: Person, Place, Time, Situation Transfers SCALE: Activities may be completed with or without assistive devices. 7-Rsiqemyohk-tcjokkg completes the activity by him/herself with no assistance from a helper. 5-Set-up or Clean-up Assistance-helper sets up or cleans up; patient completes activity. [place] assists only prior to or following the activity. 4-Supervision or Touching Assistance-helper provides verbal cues and/or touching/steadying and/or contact guard assistance as patient completes activity. Assistance may be provided throughout the activity or intermittently. 3-Partial/Moderate Assistance-helper does LESS THAN HALF the effort. [place] lif ts, holds or supports trunk or limbs, but provides less than half the effort. 2-Substantial/Maximal Assistance-helper does MORE THAN HALF the effort. [place] lifts or holds trunk or limbs and provides more than half the effort. 3-Jgrcugela-oyngav does ALL the effort. Patient does none of the effort to complete the activity. Or, the assistance of 2 or more helpers is required for the patient to complete the activity. If activity was not attempted, code reason: 7-Patient Refused. 9-Not Applicable-not attempted and the patient did not perform the activity before the current illness, exacerbation or injury. 10-Not Attempted due to Environmental Limitations-(lack of equipment, weather restraints, etc.). 88-Not Attempted due to Medical Conditions or Safety Concerns. Lying to Sitting/Side of Bed(Q: 4 Sit to Stand (QC): 3 Chair/Mhw-rt-Kuxpv Xfer(QC): 3 Weight Bearing Right Lower Extremity: Right Full Weight Bearing Left Lower Extremity: Left Full Weight Bearing Gait Training Does the Patient Walk?: Yes Distance: 4 x 8 ft Gait Persons Needed: 2 Gait Assistive Device: Parallel Bars w/c follow from tech Wheelchair Training Does the Pt Use a Wheelchair?: Yes Exercises NuStep Minutes: 8 NuStep Workload: 4 Treatments gait training, Nustep for LE exercise Assessment Current Status: Good Progress Pt. able to slide R LE forward during ambulation in // bars with min-mod A and therapist light blocking of the R knee. Pt. continues to fatigue quickly with therapy but did have better SPT this afternoon requiring min-mod A. He continues to need cues for w/c safety, such as locking brakes and positioning R foot prior to transfer. Pt. up in w/c in room post session with call light and all needs met. PT Short Term Goals Short Term Goals Time Frame: Oct 21, 2020 Roll Left & Right: 4 Sit to lyin Lying to sitting on side of be: 3 Sit to stand: 3 Chair/coe-mo-qxmac transfer: 3 Walk 10 feet: 3 PT Mining Engineer Goals Mining Engineer Goals PT Long-Term Goals Time Frame: Nov 04, 2020 Roll Left & Right (QC): 4 (SBA) Sit to Lying (QC): 4 (SBA) Lying-Sitting on Side/Bed(QC): 4 (SBA) Sit to Stand (QC): 4 (CGA) Chair/Bgh-jn-Jykfu Xfer(QC): 4 (CGA) Toilet Transfer (QC): 4 (CGA) Car Transfer (QC): 4 (CGA) Does the Patient Walk: No and Walking Goal IS indicated Walk 10 feet (QC): 3 (Yue) Walk 50ft with 2 Turns (QC): 3 (Yue) Walk 150 ft (QC): 88 Walking 10ft on Uneven Surface: 88 1 Step (curb) (QC): 88 4 Steps (QC): 88 12 Steps (QC): 88 Picking up an Object (QC): 88 Wheel 50 feet with 2 turns (QC: 6 Wheel 150 feet: 6 PT Plan Treatment/Plan Treatment Plan: Continue Plan of Care Treatment Plan: Bed Mobility, Education, Functional Activity [place], Functional Strength, Group Therapy, Gait, Safety, Therapeutic Exercise, Transfers Treatment Duration: Nov 04, 2020 Frequency: At least 5 of 7 days/Wk (IRF) Estimated Hrs Per Day: 1.5 hours per day Patient and/or Family Agrees t: Yes Time/GCodes Time In: 1255 Time Out: 1325 Total Billed Treatment Time: 30 Total Billed Treatment 1, GT 20', Ex 10' AMRJORIE BROOKE PT Oct 18, 2020 14:20
[2020-10-18 16:18] VITALS: BP 144/75
--- NOTE | 2020-10-18 19:08 | NUR ---
Bedside report received from JONO ROSAS, assume care of pt
[2020-10-18 20:50] VITALS: BP 129/74
[2020-10-18] MEDS: amLODIPine 10 MG (NORVASC) TAB PO SCH (20:56)
[2020-10-18] MEDS: ZOLPIDEM 5 MG (AMBIEN) TAB PO SCH (20:56)
--- NOTE | 2020-10-18 20:56 | NUR ---
Pt refused Colace, Miralax & Senokot, takes pills without choking with water
[2020-10-19 05:58] VITALS: BP 148/81
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
[2020-10-19] MEDS: TAMSULOSIN 0.4 MG (FLOMAX) CAP PO SCH (07:56)
[2020-10-19] MEDS: DOCUSATE SODIUM 100 MG (COLACE) CAP PO SCH ×2 (07:57→21:25)
[2020-10-19] MEDS: polyethylene glycoL POWDER 17 GM (MIRALAX) PACK PO SCH ×2 (07:57→21:25)
[2020-10-19] MEDS: LEVETIRACETAM 500 MG (KEPPRA) TAB PO SCH ×2 (07:57→21:25)
[2020-10-19] MEDS: SENNA W/DOCUSATE (SENOKOT S) TABLET PO SCH ×2 (07:57→21:25)
--- NOTE | 2020-10-19 08:50 | Occupational Ther Daily Note ---
OT Current Status-Daily Note Subjective Pt agreeable to OT tx. ADL-Treatment Therapy Code Descriptions/Definitions Functional [place] Measure: 0=Not Assessed/NA 4=Minimal Assistance 1=Total Assistance 5=Supervision or Setup 2=Maximal Assistance 6=Modified [place] 3=Moderate Assistance 7=Complete IndependenceSCALE: Activities may be completed with or without assistive devices. 2-Tjirwfikvp-gzxfwdt completes the activity by him/herself with no assistance from a helper. 5-Set-up or Clean-up Assistance-helper sets up or cleans up; patient completes activity. [place] assists only prior to or following the activity. 4-Supervision or Touching Assistance-helper provides verbal cues and/or touching/steadying and/or contact guard assistance as patient completes activity. Assistance may be provided throughout the activity or intermittently. 3-Partial/Moderate Assistance-helper does LESS THAN HALF the effort. [place] lifts, holds or supports trunk or limbs, but provides less than half the effort. 2-Substantial/Maximal Assistance-helper does MORE THAN HALF the effort. [place] lifts or holds trunk or limbs and provides more than half the effort. 0-Veqovsgtb-pfwydy does ALL the effort. Patient does none of the effort to complete the activity. Or, the assistance of 2 or more helpers is required for the patient to complete the activity. If activity was not attempted, code reason: 7-Patient Refused. 9-Not Applicable-not attempted and the patient did not perform the activity before the current illness, exacerbation or injury. 10-Not Attempted due to Environmental Limitations-(lack of equipment, weather restraints, etc.). 88-Not Attempted due to Medical Conditions or Safety Concerns. Upper Body Dressing (QC): 3 (Assist to pull long sleeve shirt over R shoulder.) Lower Body Dressing (QC): 2 (Assist with threading RLE, and slight assist with LLE. Pt able to manage pants up with assist for balance.) Toileting Hygiene (QC): 3 (Mod A, Assist to manage pants down, pt completed hygiene in sitting, and pt able to manage pants up with assist for balance) Toilet Transfer (QC): 3 (Transfer from EOB to BSC, then BSC to w/c. Each transfer towards L side, min A) Other Treatment OT/PT cotreat due to skill of 2 clinicians required that a rehab liaison could not perform in order to coordinate UE/LEs with tasks, and due to pt's limitations in strength, mobility, ambulation, and endurance. OT focused on ADLs, UE placement, and cues for sequencing and safety, PT focused on LE placement, gross overall movement and transfers. Pt transferred supine to sit EOB, then requests to use BSC, pt transferred to BSC, completed toileting and dressing, then transferred to w/c. Pt taken to therapy gym and to parallel bars, pt ambulated in bars x3, requiring assistance advancing RLE and cues for positioning of RUE/RLE prior to transfer. Pt then transferred to [facility] where he completed x8 mins, using BUE/BLE in order to increase bilateral integration of UEs, and to increase functional endurance and strength. Pt returned to his room, transferring to [facility]. Pt educated on how to use lift chair and get positioned to comfort. Pt required cues in order to lock/unlock breaks throughout tx, encouraged to use RUE as much as possible. Post tx, pt seated in recliner, call light in reach and all needs met. Education OT Patient Education: Correct positioning, Energy conservation, Modified ADL techniques, Progress toward Goal/Update tx plan, Purpose of tx/functional activities, W/C management Teaching Recipient: Patient Teaching Methods: Discussion Response to Teaching: Verbalize Understanding OT Short Term Goals Short Term Goals Toileting hygiene: 3 Shower/bathe self: 4 Lower body dressin Putting on/taking off footwear: 3 OT Security Management Specialist Goals Security Management Specialist Goals Time Frame: Nov 05, 2020 Eating (QC): 6 Oral Hygiene (QC): 6 Toileting Hygiene (QC): 6 Shower/Bathe Self (QC): 5 Upper Body Dressing (QC): 6 Lower Body Dressing (QC): 3 On/Off Footwear (QC): 5 Additional Goals: 1-Demonstrate ADL Tasks, 2-Verbalize Understanding, 3- ImproveStrength/Jerome 1=Demonstrate adherence to instructed precautions during ADL tasks. 2=Patient will verbalize/demonstrate understanding of assistive devices/modifications for ADL. 3=Patient will improve strength/tolerance for activity to enable patient to perform ADL's. OT Education/Plan Problem List/Assessment Assessment: Decreased Activ Tolerance, Decreased UE Strength, Impaired Funct Balance, Impaired I ADL's, Impaired Self-Care Skills Discharge Recommendations Plan/Recommendations: Continue POC Treatment Plan/Plan of Care Patient would benefit from OT for education, treatment and training to promote independence in ADL's, mobility, safety and/or upper extremity function for ADL's. Plan of Care: ADL Retraining, Caregiver Training, Concurrent Therapy, Functional Mobility, Group Exercise/Act as Ind, UE Funct Exercise/Act, UE Neuromus Re-Ed/Coord, W/C Management Training Treatment Duration: Nov 05, 2020 Frequency: At least 5 of 7 days/Wk (IRF) Estimated Hrs Per Day: 1.5 hours per day Agreement: Yes Rehab Potential: Fair Time/GCodes Start Time: 08:00 Stop Time: 09:00 Total Time Billed (hr/min): 60 Billed Treatment Time cotreat x60' 1, ADL (15'), FA 3 (45') ALBERTO VALENCIA OT Oct 19, 2020 08:50
--- NOTE | 2020-10-19 09:02 | Physical Therapy Daily Note ---
PT Daily Note-Current Subjective Pt. states he is encouraged and proud to say he feels he is making some progress and has some more movement and use of RLE. No c/o pain. Does c/o fatigue Pain Location: No Pain Reported Mental Status Patient Orientation: Normal For Age Attachments: Other-See Comments (mask while out of room) Transfers SCALE: Activities may be completed with or without assistive devices. 7-Pxzorepucm-ramekav completes the activity by him/herself with no assistance from a helper. 5-Set-up or Clean-up Assistance-helper sets up or cleans up; patient completes activity. [place] assists only prior to or following the activity. 4-Supervision or Touching Assistance-helper provides verbal cues and/or danielle ashley/steadying and/or contact guard assistance as patient completes activity. Assistance may be provided throughout the activity or intermittently. 3-Partial/Moderate Assistance-helper does LESS THAN HALF the effort. [place] lifts, holds or supports trunk or limbs, but provides less than half the effort. 2-Substantial/Maximal Assistance-helper does MORE THAN HALF the effort. [place] lifts or holds trunk or limbs and provides more than half the effort. 2-Pqxrllend-aikwhs does ALL the effort. Patient does none of the effort to complete the activity. Or, the assistance of 2 or more helpers is required for the patient to complete the activity. If activity was not attempted, code reason: 7-Patient Refused. 9-Not Applicable-not attempted and the patient did not perform the activity before the current illness, exacerbation or injury. 10-Not Attempted due to Environmental Limitations-(lack of equipment, weather restraints, etc.). 88-Not Attempted due to Medical Conditions or Safety Concerns. Sit to Stand (QC): 4 Chair/Pss-pe-Rhqtl Xfer(QC): 3 Toilet Transfer (QC): 3 Weight Bearing Right Lower Extremity: Right Full Weight Bearing Left Lower Extremity: Left Full Weight Bearing Gait Training Does the Patient Walk?: Yes Walk 10 feet (QC): 3 Gait Persons Needed: 1 Gait Assistive Device: Parallel Bars 10ftx3 in // bars using cony wrap on right foot to help advance R foot and also align in for good PITO, pt. needs 75% assist to advance RLE and occas assist to extend R knee , but has progressed in gait in // bars Wheelchair Training Does the Pt Use a Wheelchair?: Yes Type of Wheelchair: Manual 75ft min to mod assist to brake, turn and propel Exercises NuStep Minutes: 8 NuStep Workload: 3 Treatments co Rx PT OT for dressing, toileting, TRFs w/c mob, gait and exercise, OT coordinating sequence and UEs with PT focusing gait and coordination LEs for ADLs. 2 skilled clinicians needed to coordinate efficient Rx Assessment Current Status: Good Progress PT Short Term Goals Short Term Goals Time Frame: Oct 21, 2020 Roll Left & Right: 4 Sit to lyin Lying to sitting on side of be: 3 Sit to stand: 3 Chair/eva-qw-grmln transfer: 3 Walk 10 feet: 3 PT Senior Care Goals Senior Care Goals PT Manager Product Marketing Goals Time Frame: Nov 04, 2020 Roll Left & Right (QC): 4 (SBA) Sit to Lying (QC): 4 (SBA) Lying-Sitting on Side/Bed(QC): 4 (SBA) Sit to Stand (QC): 4 (CGA) Chair/Rbc-kp-Zjsxd Xfer(QC): 4 (CGA) Toilet Transfer (QC): 4 (CGA) Car Transfer (QC): 4 (CGA) Does the Patient Walk: No and Walking Goal IS indicated Walk 10 feet (QC): 3 (Yue) Walk 50ft with 2 Turns (QC): 3 (Yue) Walk 150 ft (QC): 88 Walking 10ft on Uneven Surface: 88 1 Step (curb) (QC): 88 4 Steps (QC): 88 12 Steps (QC): 88 Picking up an Object (QC): 88 Wheel 50 feet with 2 turns (QC: 6 Wheel 150 feet: 6 PT Plan Treatment/Plan Treatment Plan: Continue Plan of Care Treatment Plan: Bed Mobility, Education, Functional Activity Jerome, Functional Strength, Group Therapy, Gait, Safety, Therapeutic Exercise, Transfers Treatment Duration: Nov 04, 2020 Frequency: At least 5 of 7 days/Wk (IRF) Estimated Hrs Per Day: 1.5 hours per day Patient and/or Family Agrees t: Yes Safety Risks/Education Patient Education: Gait Training, Transfer Techniques, Correct Positioning, W/C Management, Disease Process, Safety Issues Teaching Recipient: Patient Teaching Methods: Demonstration, Discussion Response to Teaching: Return Demonstration, Reinforcement Needed Time/GCodes Time In: 800 Time Out: 900 Total Billed Treatment Time: 60 Total Billed Treatment 1,GT25m,FA20m,EX15m co Rx w OT 60 m SHEKHAR MUNIZ DIRECTOR [employer] Oct 19, 2020 09:02
--- NOTE | 2020-10-19 12:01 | Physical Therapy Daily Note ---
PT Daily Note-Current Subjective Pt. up in recliner and states that he really enjoys the recliner now that he has been shown how to make it more comfortable Pain Location: No Pain Reported Mental Status Patient Orientation: Normal For Age Transfers SCALE: Activities may be completed with or without assistive devices. 2-Hmswwxomdr-rooowni completes the activity by him/herself with no assistance from a helper. 5-Set-up or Clean-up Assistance-helper sets up or cleans up; patient completes activity. [place] assists only prior to or following the activity. 4-Supervision or Touching Assistance-helper provides verbal cues and/or touching/steadying and/or contact guard assistance as patient completes activity. Assistance may be provided throughout the activity or intermittently. 3-Partial/Moderate Assistance-helper does LESS THAN HALF the effort. [place] lifts, holds or supports trunk or limbs, but provides less than half the effort. 2-Substantial/Maximal Assistance-helper does MORE THAN HALF the effort. [place] lifts or holds trunk or limbs and provides more than half the effort. 2-Zyhgmyqjd-wblddr does ALL the effort. Patient does none of the effort to complete the activity. Or, the assistance of 2 or more helpers is required for the patient to complete the activity. If activity was not attempted, code reason: 7-Patient Refused. 9-Not Applicable-not attempted and the patient did not perform the activity before the current illness, exacerbation or injury. 10-Not Attempted due to Environmental Limitations-(lack of equipment, weather restraints, etc.). 88-Not Attempted due to Medical Conditions or Safety Concerns. sit to stand mod to min, pushes self up in chair in fully reclined position using LEs. Weight Bearing Right Lower Extremity: Right Full Weight Bearing Left Lower Extremity: Left Full Weight Bearing Exercises Supine Ex: Bridging, Ankle pumps, Quad Set, Glut sets, Heel Slides, Scooting, Straight leg raise, Hip abd/add Supine Reps: 15 Seated Therapy Exercises: Ankle pumps, Sit to stand, Long arc quads, Hip flexion Seated Reps: 15 assisted on Right Assessment Current Status: Good Progress gives full effort PT Short Term Goals Short Term Goals Time Frame: Oct 21, 2020 Roll Left & Right: 4 Sit to lyin Lying to sitting on side of be: 3 Sit to stand: 3 Chair/nbk-af-qlyqt transfer: 3 Walk 10 feet: 3 PT Fpc Goals Fpc Goals PT Software Test Manager Goals Time Frame: Nov 04, 2020 Roll Left & Right (QC): 4 (SBA) Sit to Lying (QC): 4 (SBA) Lying-Sitting on Side/Bed(QC): 4 (SBA) Sit to Stand (QC): 4 (CGA) Chair/Gvw-dw-Aoycs Xfer(QC): 4 (CGA) Toilet Transfer (QC): 4 (CGA) Car Transfer (QC): 4 (CGA) Does the Patient Walk: No and Walking Goal IS indicated Walk 10 feet (QC): 3 (Yue) Walk 50ft with 2 Turns (QC): 3 (Yue) Walk 150 ft (QC): 88 Walking 10ft on Uneven Surface: 88 1 Step (curb) (QC): 88 4 Steps (QC): 88 12 Steps (QC): 88 Picking up an Object (QC): 88 Wheel 50 feet with 2 turns (QC: 6 Wheel 150 feet: 6 PT Plan Treatment/Plan Treatment Plan: Continue Plan of Care Treatment Plan: Bed Mobility, Education, Functional Activity Jerome, Functional Strength, Group Therapy, Gait, Safety, Therapeutic Exercise, Transfers Treatment Duration: Nov 04, 2020 Frequency: At least 5 of 7 days/Wk (IRF) Estimated Hrs Per Day: 1.5 hours per day Patient and/or Family Agrees t: Yes Time/GCodes Time In: 1130 Time Out: 1200 Total Billed Treatment Time: 30 Total Billed Treatment 1,FA10m,EX20m SHEKHAR MUNIZ CAMP HOUSEKEEPER Oct 19, 2020 12:01
--- NOTE | 2020-10-19 14:21 | Occupational Ther Daily Note ---
OT Current Status-Daily Note Subjective Pt seated in recliner, agreeable to OT tx. ADL-Treatment Therapy Code Descriptions/Definitions Functional [place] Measure: 0=Not Assessed/NA 4=Minimal Assistance 1=Total Assistance 5=Supervision or Setup 2=Maximal Assistance 6=Modified [place] 3=Moderate Assistance 7=Complete IndependenceSCALE: Activities may be completed with or without assistive devices. 5-Yqtvvbfrds-hqinhjj completes the activity by him/herself with no assistance from a helper. 5-Set-up or Clean-up Assistance-helper sets up or cleans up; patient completes activity. [place] assists only prior to or following the activity. 4-Supervision or Touching Assistance-helper provides verbal cues and/or touching/steadying and/or contact guard assistance as patient completes activity. Assistance may be provided throughout the activity or intermittently. 3-Partial/Moderate Assistance-helper does LESS THAN HALF the effort. [place] lifts, holds or supports trunk or limbs, but provides less than half the effort. 2-Substantial/Maximal Assistance-helper does MORE THAN HALF the effort. [place] lifts or holds trunk or limbs and provides more than half the effort. 4-Smhmsuerq-blpmdu does ALL the effort. Patient does none of the effort to complete the activity. Or, the assistance of 2 or more helpers is required for the patient to complete the activity. If activity was not attempted, code reason: 7-Patient Refused. 9-Not Applicable-not attempted and the patient did not perform the activity before the current illness, exacerbation or injury. 10-Not Attempted due to Environmental Limitations-(lack of equipment, weather restraints, etc.). 88-Not Attempted due to Medical Conditions or Safety Concerns. Oral Hygiene (QC): 5 (set up at tray table.) Other Treatment Pt seated on recliner, agreeable to OT tx. Pt able to brush his teeth and wash his face with set up assistance. OT then assisted pt with using baby shampoo to wash hair around incision site. Post tx, pt seated in recliner, call light in reach and all needs met. Education OT Patient Education: Correct positioning, Modified ADL techniques, Progress toward Goal/Update tx plan, Purpose of tx/functional activities Teaching Recipient: Patient Teaching Methods: Discussion Response to Teaching: Verbalize Understanding OT Short Term Goals Short Term Goals Toileting hygiene: 3 Shower/bathe self: 4 Lower body dressin Putting on/taking off footwear: 3 OT Api Developer Goals Api Developer Goals Time Frame: Nov 05, 2020 Eating (QC): 6 Oral Hygiene (QC): 6 Toileting Hygiene (QC): 6 Shower/Bathe Self (QC): 5 Upper Body Dressing (QC): 6 Lower Body Dressing (QC): 3 On/Off Footwear (QC): 5 Additional Goals: 1-Demonstrate ADL Tasks, 2-Verbalize Understanding, 3- ImproveStrength/Jerome 1=Demonstrate adherence to instructed precautions during ADL tasks. 2=Patient will verbalize/demonstrate understanding of assistive devices/modifications for ADL. 3=Patient will improve strength/tolerance for activity to enable patient to perform ADL's. OT Education/Plan Problem List/Assessment Assessment: Decreased Activ Tolerance, Decreased UE Strength, Impaired Funct Balance, Impaired I ADL's, Impaired Self-Care Skills Discharge Recommendations Plan/Recommendations: Continue POC Treatment Plan/Plan of Care Patient would benefit from OT for education, treatment and training to promote independence in ADL's, mobility, safety and/or upper extremity function for ADL's. Plan of Care: ADL Retraining, Caregiver Training, Concurrent Therapy, Functional Mobility, Group Exercise/Act as Ind, UE Funct Exercise/Act, UE Neuromus Re-Ed/Coord, W/C Management Training Treatment Duration: Nov 05, 2020 Frequency: At least 5 of 7 days/Wk (IRF) Estimated Hrs Per Day: 1.5 hours per day Agreement: Yes Rehab Potential: Fair Time/GCodes Start Time: 13:30 Stop Time: 14:00 Total Time Billed (hr/min): 30 Billed Treatment Time 1, ADL 2 ALBERTO VALENCIA OT Oct 19, 2020 14:21
--- NOTE | 2020-10-19 15:56 | ST Cognitive Linguistic Eval ---
Speech Evaluation-General Medical Diagnosis brain tumor, craniotomy Onset Date: Oct 12, 2020 Therapy Diagnosis Therapy Diagnosis: Exxpressive Aphasia Precautions Precautions/Isolations: Fall Prevention, Standard Precautions Referral Referring Physician: Dr. Velásquez Medical History Reviewed History: Yes Social History Current Living Status: Spouse Speech PLF-Current Status Prior Level of Function Patient lives at home with his where he was independent prior to his surgery. Subjective Patient was pleasant with the assessment. Language Eval: Auditory Comprehends Simple Yes/No Ques: Functional Indent/Objects Multiple Guzmán: Functional Ident/Pics in Multiple Guzmán: Functional Follows 1-Step Commands: Functional Follows Complex Directions: Mild Follows General Conversations: Functional Language Eval: Verbal Language Completes Spontaneous Greeting: Functional Produces Auto, Serial Info: Functional Word Finding: Mild Requests Basic Needs: Functional States Basic Personal Info: Functional Expresses Complex Ideas: Mild Objective Cognitive Domain Attention: WNL Memory: Mild Problem Solving: Mild, Functional Executive Functions: Mild Visuospatial Skills: WNL Composite Severity Rating: Mild Clock Drawing Severity Rating: Mild Objective Formal/Standardized Tests WAB subtests, informal speech tasks Results Mild expressive aphasia Oral Motor/Speech Production Within Normal Limits Impression Patient is a pleasant 75 y/o male who was admitted to [facility] s/p craniotomy. Patient was initially evaluated for cognitive function which was within normal range of function. However he has been noted to have some expressive aphasia as well as word finding difficulties. Patient was evaluated for these areas with mild deficits noted. The patient will receive skilled ST with focus on improving communication with expression of wants/needs. Speech Patient Assess Expression of Ideas/Wants: Exhibits (3) Understanding Verbal Content: Understands (4) Brief Interview-Mental Status: Yes Repetition of Three Words: Three (3) Temporal Orientation: Year: Correct (3) Temporal Orientation: Month: Accurate within 5 days(2) Temporal Orientation: Day: Correct (1) Recall : Wear to say "Sock": Yes, no cue required (2) Recall : Color: Yes, no cue required (2) Recall : Bed: Yes, no cue required (2) Memory/Recall Ability: Current season, Location of own room, That he or she is in a hsp/hsp unit Speech Short Term Goals Short Term Goals Short Term Goals 1) The patient will complete memory exercises with minimal cues at 90% or greater. 2) The patient will complete confrontational naming exercises with minimal cues at 90% or greater. Speech Photovoltaic Testing Technician Goals Photovoltaic Testing Technician Goals Patient will improve expressive communication to meet wants/needs. Speech-Plan Patient/Family Goals Patient/Family Goals: Patient plans on returning to his home where he lives with his . Treatment Plan Speech Therapy Treatment Plan: Continue Plan of Care Treatment Duration: Oct 17, 2020 Frequency: 4 times per week (Patient will receive skilled ST 4-5x per week) Estimated Hrs Per Day: .5 hour per day Rehab Potential: Fair Barriers to Learning: Patient's recent brain surgery. Pt/Family Agrees to Plan: Yes Safety Risks/Education Teaching Recipient: Patient Teaching Methods: Discussion Response to Teaching: Verbalize Understanding Education Topics Provided: Safety within his room and communication Time Speech Therapy Time In: 14:45 Speech Therapy Time Out: 15:00 Total Billed Time: 15 Billed Treatment Time 1, SOTO MORALES [facility] ST Oct 19, 2020 15:56
--- NOTE | 2020-10-19 16:40 | NUR ---
CM/SS PATIENT CARE CONFERENCE Reviewed Summary with patient, then with spouse Nila by phone. Both are in agreement to his continued stay with next review October 26. Barrier to return home is access, Nila reports she contacted their contractor and is on a wait list for a ramp. [place] encouraged her to speak with contractor to pinpoint a timeline re same since this must be completed before patient can access his home. Additionally, Nila is unable to assist patient due to a degenerative back disease. If he is unable to be independent for transfers, he will require family and/or paid caregivers availability. Patient has Medicare and a supplement, it would appear DME should be obtained without difficulty. Continue intermittent review. Family training in the future so that decisions can be made regarding level of care required.
[2020-10-19 17:17] VITALS: BP 128/73
[2020-10-19] MEDS: ZOLPIDEM 5 MG (AMBIEN) TAB PO SCH (21:25)
[2020-10-19] MEDS: amLODIPine 10 MG (NORVASC) TAB PO SCH (21:30)
[2020-10-20 06:00] VITALS: BP 136/74
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
[2020-10-20] MEDS: SENNA W/DOCUSATE (SENOKOT S) TABLET PO SCH ×2 (07:46→20:42)
[2020-10-20] MEDS: TAMSULOSIN 0.4 MG (FLOMAX) CAP PO SCH (07:46)
[2020-10-20] MEDS: LEVETIRACETAM 500 MG (KEPPRA) TAB PO SCH ×2 (07:46→20:42)
[2020-10-20] MEDS: polyethylene glycoL POWDER 17 GM (MIRALAX) PACK PO SCH ×2 (07:47→20:43)
[2020-10-20] MEDS: DOCUSATE SODIUM 100 MG (COLACE) CAP PO SCH ×2 (07:47→20:43)
--- NOTE | 2020-10-20 09:26 | Physical Therapy Daily Note ---
PT Daily Note-Current Subjective Pt. on commode upon PT entrance, OT present for co-tx for skilled therapy of 2. Pt. has no c/o pain and is motivated for therapy. Transfers SCALE: Activities may be completed with or without assistive devices. 9-Zspcmfjcpv-ohlejpa completes the activity by him/herself with no assistance from a helper. 5-Set-up or Clean-up Assistance-helper sets up or cleans up; patient completes activity. Rochert assists only prior to or following the activity. 4-Supervision or Touching Assistance-helper provides verbal cues and/or touching/steadying and/or contact guard assistance as patient completes activity. Assistance may be provided throughout the activity or intermittently. 3-Partial/Moderate Assistance-helper does LESS THAN HALF the effort. Rochert lifts, holds or supports trunk or limbs, but provides less than half the effort. 2-Substantial/Maximal Assistance-helper does MORE THAN HALF the effort. Rochert lifts or holds trunk or limbs and provides more than half the effort. 4-Myxoakvcn-vsgyzl does ALL the effort. Patient does none of the effort to complete the activity. Or, the assistance of 2 or more helpers is required for the patient to complete the activity. If activity was not attempted, code reason: 7-Patient Refused. 9-Not Applicable-not attempted and the patient did not perform the activity before the current illness, exacerbation or injury. 10-Not Attempted due to Environmental Limitations-(lack of equipment, weather restraints, etc.). 88-Not Attempted due to Medical Conditions or Safety Concerns. Sit to Stand (QC): 3 Chair/Kkg-tg-Sawec Xfer(QC): 1 Toilet Transfer (QC): 1 min A x 2 for commode transfer and occasional w/c to/from chair using a SPT, occasionally mod A with transfers Weight Bearing Right Lower Extremity: Right Full Weight Bearing Left Lower Extremity: Left Full Weight Bearing Gait Training Does the Patient Walk?: Yes Distance: 3 x 8 ft Gait Persons Needed: 2 Gait Assistive Device: Parallel Bars assist from PT with balance and advancing R LE, assist from OT with R hand on // bars and w/c follow Wheelchair Training Does the Pt Use a Wheelchair?: Yes Type of Wheelchair: Manual 2 x 100 ft using L upper and lower extremity only, cues for brakes on/off and positioning of w/c for transfers Treatments transfers, ambulation in // bars, w/c mobility Assessment Current Status: Good Progress Pt. continues to require skilled care of 2 therapist with PT focusing on transfers during ADLs and R LE movement while OT focuses on R UE and dressing/bathing activities. Pt. was occasionally mod A with transfers w/c to/from chair, however occasionally needed min A x 2 due to fatigue and poor strength/active movement in the R LE. Pt. continues to have difficulty advancing R LE during ambulation in // bars and fatigues very quickly towards end of session. We also worked on sidestepping in // bars with PT assist of moving R foot. Pt. did well with w/c mobility using L upper and lower extremities only. He did need frequent cuing for putting on brakes prior to transfers. Pt. up in bedside chair with call light and all needs met. PT Short Term Goals Short Term Goals Time Frame: Oct 21, 2020 Roll Left & Right: 4 Sit to lyin Lying to sitting on side of be: 3 Sit to stand: 3 Chair/kux-hh-rpuwp transfer: 3 Walk 10 feet: 3 PT Intermediate Goals Protection Manager Goals PT Protection Manager Goals Time Frame: Nov 04, 2020 Roll Left & Right (QC): 4 (SBA) Sit to Lying (QC): 4 (SBA) Lying-Sitting on Side/Bed(QC): 4 (SBA) Sit to Stand (QC): 4 (CGA) Chair/Xrt-cs-Fzeoc Xfer(QC): 4 (CGA) Toilet Transfer (QC): 4 (CGA) Car Transfer (QC): 4 (CGA) Does the Patient Walk: No and Walking Goal IS indicated Walk 10 feet (QC): 3 (Yue) Walk 50ft with 2 Turns (QC): 3 (Yue) Walk 150 ft (QC): 88 Walking 10ft on Uneven Surface: 88 1 Step (curb) (QC): 88 4 Steps (QC): 88 12 Steps (QC): 88 Picking up an Object (QC): 88 Wheel 50 feet with 2 turns (QC: 6 Wheel 150 feet: 6 PT Plan Treatment/Plan Treatment Plan: Continue Plan of Care Treatment Plan: Bed Mobility, Education, Functional Activity Jerome, Functional Strength, Group Therapy, Gait, Safety, Therapeutic Exercise, Transfers Treatment Duration: Nov 04, 2020 Frequency: At least 5 of 7 days/Wk (IRF) Estimated Hrs Per Day: 1.5 hours per day Patient and/or Family Agrees t: Yes Time/GCodes Time In: 814 Time Out: 914 Total Billed Treatment Time: 60 Total Billed Treatment 1, GT 15', FA 35', WC 10' MARJORIE BROOKE PT Oct 20, 2020 09:26
--- NOTE | 2020-10-20 10:22 | Occupational Ther Daily Note ---
OT Current Status-Daily Note Subjective Pt AxO. Pt agrees to tx. Denies pain. OT individual tx: [id number] OT/ PT co-treat: : OT/PT cotreat due to skill of 2 clinicians required that a veterans rehabilitation counselor could not perform in order to coordinate UE/LEs with tasks, and due to pt's limitations in strength, mobility, ambulation, and endurance. OT focused on ADLs, UE placement, and cues for sequencing and safety, PT focused on LE placement, gross overall movement and transfers. Mental Status/Objective Patient Orientation: Person, Place, Situation, Normal For Age ADL-Treatment Therapy Code Descriptions/Definitions Functional Casey Measure: 0=Not Assessed/NA 4=Minimal Assistance 1=Total Assistance 5=Supervision or Setup 2=Maximal Assistance 6=Modified Casey 3=Moderate Assistance 7=Complete IndependenceSCALE: Activities may be completed with or without assistive devices. 0-Pdtifhgsfu-vdqkgdz completes the activity by him/herself with no assistance from a helper. 5-Set-up or Clean-up Assistance-helper sets up or cleans up; patient completes activity. Elizabeth assists only prior to or following the activity. 4-Supervision or Touching Assistance-helper provides verbal cues and/or touching/steadying and/or contact guard assistance as patient completes activity. Assistance may be provided throughout the activity or intermittently. 3-Partial/Moderate Assistance-helper does LESS THAN HALF the effort. Elizabeth lifts, holds or supports trunk or limbs, but provides less than half the effort. 2-Substantial/Maximal Assistance-helper does MORE THAN HALF the effort. Elizabeth lifts or holds trunk or limbs and provides more than half the effort. 9-Wmgsmnrmf-valkom does ALL the effort. Patient does none of the effort to complete the activity. Or, the assistance of 2 or more helpers is required for the patient to complete the activity. If activity was not attempted, code reason: 7-Patient Refused. 9-Not Applicable-not attempted and the patient did not perform the activity before the current illness, exacerbation or injury. 10-Not Attempted due to Environmental Limitations-(lack of equipment, weather restraints, etc.). 88-Not Attempted due to Medical Conditions or Safety Concerns. Bathing Location: L Arm, R Arm, L Upper Leg, R Upper Leg, L Lower Leg (including foot), R Lower Leg (including foot), Chest, Abdomen, Perineal Area Shower/Bathe Self (QC): 3 (min A bottom care in stance.) Upper Body Dressing (QC): 3 (min A R side and sequencing.) Lower Body Dressing (QC): 2 (max A: A to thread RLE, pt completes LLE with increased time. Pt sit to stand at [facility], OT pulls up over hips. ) On/Off Footwear: 2 (max A donning/ doffing RLE) Toileting Hygiene (QC): 1 (TD as Ax2 required: PT stands/ assists in balance while OT addresses bottom care.) Toilet Transfer (QC): 3 (min A to strong side from w/c.) Other Treatment Pt bed mob with mod A to sitting. Pt SPT to L/ strong side to w/c with CGA. Pt requests commode- completes as outlined. PT/ OT co-treat to wipe bottom and complete showering. Pt in w/c and completes transfer to L side with Ax2 and cues for foot/ hand placement. Pt sits with control, completes showering/ dressing as outlined. Pt stands with CGA and SPT with min A x2 to w/c placed to R side from il. Pt propels self with use of R footrest to parallel bars. Pt completes 3-4 rounds of ambulation task with PT addressing stance/ fx ambulation and OT addressing RUE placement and w/c to follow. Pt progressively becomes more fatigu ed. Busy environment as well. Pt completes 2 side steps at parallel bars to L and 2 to R with max A to R. Pt sits, SPT to recliner with min A x2 to L side, all needs met, call light in reach. Education OT Patient Education: Correct positioning, Exercise program, Modified ADL techniques, Progress toward Goal/Update tx plan, Purpose of tx/functional activities, Safety issues, Transfer techniques, Use of adapted equipment Teaching Recipient: Patient Teaching Methods: Demonstration, Discussion Response to Teaching: Verbalize Understanding, Return Demonstration, Reinforcement Needed OT Short Term Goals Short Term Goals Toileting hygiene: 3 Shower/bathe self: 4 Lower body dressin Putting on/taking off footwear: 3 OT Chcf Goals Chcf Goals Time Frame: Nov 05, 2020 Eating (QC): 6 Oral Hygiene (QC): 6 Toileting Hygiene (QC): 6 Shower/Bathe Self (QC): 5 Upper Body Dressing (QC): 6 Lower Body Dressing (QC): 3 On/Off Footwear (QC): 5 Additional Goals: 1-Demonstrate ADL Tasks, 2-Verbalize Understanding, 3- ImproveStrength/Jerome 1=Demonstrate adherence to instructed precautions during ADL tasks. 2=Patient will verbalize/demonstrate understanding of assistive devices/modifications for ADL. 3=Patient will improve strength/tolerance for activity to enable patient to perform ADL's. OT Education/Plan Problem List/Assessment Assessment: Decreased Activ Tolerance, Decreased UE Strength, Dependent Transfers, Impaired Bed Mobility, Impaired Coordination, Impaired Funct Balance, Impaired I ADL's, Impaired Self-Care Skills, Restricted Funct UE ROM Discharge Recommendations Plan/Recommendations: Continue POC Therapy Discharge Recommendati: Home & Family, Post Acute OT Treatment Plan/Plan of Care Treatment,Training & Education: Yes Patient would benefit from OT for education, treatment and training to promote independence in ADL's, mobility, safety and/or upper extremity function for ADL's. Plan of Care: ADL Retraining, Caregiver Training, Concurrent Therapy, Functional Mobility, Group Exercise/Act as Ind, UE Funct Exercise/Act, UE Neuromus Re-Ed/Coord, W/C Management Training Treatment Duration: Nov 05, 2020 Frequency: At least 5 of 7 days/Wk (IRF) Estimated Hrs Per Day: 1.5 hours per day Agreement: Yes Rehab Potential: Fair Time/GCodes Start Time: 08:00 Stop Time: 09:15 Total Time Billed (hr/min): 75 Billed Treatment Time OT/PT cotreat due to skill of 2 clinicians required that a veterans rehabilitation counselor could not perform in order to coordinate UE/LEs with tasks, and due to pt's limitations in strength, mobility, ambulation, and endurance. OT focused on ADLs, UE placement, and cues for sequencing and safety, PT focused on LE placement, gross overall movement and transfers. [id number]: OT individual tx [id number]: PT co-treat 1, ADL 4 (60), EX (15)= 75 DAVIDSON CASON OTR Oct 20, 2020 10:22
--- NOTE | 2020-10-20 11:02 | Speech Therapy Daily Note ---
Speech Daily Progress Note Subjective Date Seen by Provider: Oct 20, 2020 Time Seen by Provider: 00:30 Patient was sitting up in his recliner following his OT and PT session. Patient states he was tired, however he was able to participate well. Objective Patient completed a series of answering general information at 90% with minimal cues. Assessment Assessment Current Status: Good Progress Treatment Plan Continue Plan of Care Speech Short Term Goals Short Term Goals Short Term Goals 1) The patient will complete memory exercises with minimal cues at 90% or greater. 2) The patient will complete confrontational naming exercises with minimal cues at 90% or greater. Speech Correction Goals Inspector Advanced Composite Goals Patient will improve expressive communication to meet wants/needs. Speech-Plan Patient/Family Goals Patient/Family Goals: Patient plans on returning to his home where he lives with his . Treatment Plan Speech Therapy Treatment Plan: Continue Plan of Care Treatment Duration: Oct 17, 2020 Frequency: 4 times per week (Patient will receive skilled ST 4-5x per week) Estimated Hrs Per Day: .5 hour per day Rehab Potential: Fair Barriers to Learning: Patient's recent brain surgery, age Pt/Family Agrees to Plan: Yes Safety Risks/Education Teaching Recipient: Patient Teaching Methods: Demonstration, Discussion Response to Teaching: Verbalize Understanding, Return Demonstration Education Topics Provided: Continued safety within his room, communication of wants/needs Time Speech Therapy Time In: 09:30 Speech Therapy Time Out: 10:00 Total Billed Time: 30 Billed Treatment Time 1, SABIHA Gonzalez Oct 20, 2020 11:02
--- NOTE | 2020-10-20 11:46 | NUR ---
REC'D AN UPSETTING CALL FROM DR. WARD, RADIATION ONCOLOGIST AT [facility]. DOES NOT WANT TO TALK ABOUT IT RIGHT NOW.
--- NOTE | 2020-10-20 11:47 | Physical Therapy Daily Note ---
PT Daily Note-Current Subjective Pt. in chair, attempt to see patient for final minutes of therapy. Pt. is emotional and states he just received bad news from radiologist from via conference call. Pt. adamantly refuses additional therapy and tells therapist to "get out." On second attempt, patient lethargic and upset, declines getting into bed or other attempts of repositioning. Transfers SCALE: Activities may be completed with or without assistive devices. 8-Qvhfkbasyt-rtqhhty completes the activity by him/herself with no assistance from a helper. 5-Set-up or Clean-up Assistance-helper sets up or cleans up; patient completes activity. [place] assists only prior to or following the activity. 4-Supervision or Touching Assistance-helper provides verbal cues and/or touching/steadying and/or contact guard assistance as patient completes activity. Assistance may be provided throughout the activity or intermittently. 3-Partial/Moderate Assistance-helper does LESS THAN HALF the effort. [place] lifts, holds or supports trunk or limbs, but provides less than half the effort. 2-Substantial/Maximal Assistance-helper does MORE THAN HALF the effort. [place] lifts or holds trunk or limbs and provides more than half the effort. 0-Wpbnrjyhy-wuqglf does ALL the effort. Patient does none of the effort to complete the activity. Or, the assistance of 2 or more helpers is required for the patient to complete the activity. If activity was not attempted, code reason: 7-Patient Refused. 9-Not Applicable-not attempted and the patient did not perform the activity before the current illness, exacerbation or injury. 10-Not Attempted due to Environmental Limitations-(lack of equipment, weather restraints, etc.). 88-Not Attempted due to Medical Conditions or Safety Concerns. Weight Bearing Right Lower Extremity: Right Full Weight Bearing Left Lower Extremity: Left Full Weight Bearing Assessment Therapist respects patient request to be left alone due to recent bad news, unable to complete full therapy time this date. PT Short Term Goals Short Term Goals Time Frame: Oct 21, 2020 Roll Left & Right: 4 Sit to lyin Lying to sitting on side of be: 3 Sit to stand: 3 Chair/zmc-jl-bmrks transfer: 3 Walk 10 feet: 3 PT Firmware Architect Goals Firmware Architect Goals PT Senior Care Goals Time Frame: Nov 04, 2020 Roll Left & Right (QC): 4 (SBA) Sit to Lying (QC): 4 (SBA) Lying-Sitting on Side/Bed(QC): 4 (SBA) Sit to Stand (QC): 4 (CGA) Chair/Qpf-aw-Lukja Xfer(QC): 4 (CGA) Toilet Transfer (QC): 4 (CGA) Car Transfer (QC): 4 (CGA) Does the Patient Walk: No and Walking Goal IS indicated Walk 10 feet (QC): 3 (Yue) Walk 50ft with 2 Turns (QC): 3 (Yue) Walk 150 ft (QC): 88 Walking 10ft on Uneven Surface: 88 1 Step (curb) (QC): 88 4 Steps (QC): 88 12 Steps (QC): 88 Picking up an Object (QC): 88 Wheel 50 feet with 2 turns (QC: 6 Wheel 150 feet: 6 PT Plan Treatment/Plan Treatment Plan: Continue Plan of Care Treatment Plan: Bed Mobility, Education, Functional Activity Jerome, Functional Strength, Group Therapy, Gait, Safety, Therapeutic Exercise, Transfers Treatment Duration: Nov 04, 2020 Frequency: At least 5 of 7 days/Wk (IRF) Estimated Hrs Per Day: 1.5 hours per day Patient and/or Family Agrees t: Yes Time/GCodes Time In: 0 Time Out: 0 Total Billed Treatment Time: 0 Total Billed Treatment visit only MARJORIE BROOKE PT Oct 20, 2020 11:47
--- NOTE | 2020-10-20 12:26 | NUR ---
PATIENT REPORTS DR. WARD REPORTED "HIGH GRADE, TERMINAL CANCER". STATES THAT HE WON'T MAKE IT 3 MONTHS AND DOES NOT WISH TO DO CHEMO OR RADIATION. WANTS TO GO HOME.
--- NOTE | 2020-10-20 14:09 | Speech Therapy Progress Note ---
Therapy Progress Note ST attempted to see the patient for more minutes this afternoon. Patient continues to be emotional following his conference call from the [facility] radiologist this morning. Patient continues to refuse therapy at this time. SABIHA RYAN Oct 20, 2020 14:09
[2020-10-20 16:20] VITALS: BP 143/74
[2020-10-20] MEDS: BISACODYL 10 MG SUPP (DULCOLAX) PR PRN (18:08)
--- NOTE | 2020-10-20 19:00 | NUR ---
SUPPOSITORY GIVEN WITH MODERATE RESULTS.
[2020-10-20 19:45] VITALS: BP 121/73
[2020-10-20] MEDS: amLODIPine 10 MG (NORVASC) TAB PO SCH (20:42)
[2020-10-20] MEDS: ZOLPIDEM 5 MG (AMBIEN) TAB PO SCH (20:43)
[2020-10-21 05:50] VITALS: BP 130/75
[2020-10-21] MEDS: DOCUSATE SODIUM 100 MG (COLACE) CAP PO SCH ×2 (10:38→20:53)
[2020-10-21] MEDS: SENNA W/DOCUSATE (SENOKOT S) TABLET PO SCH ×2 (10:38→20:54)
[2020-10-21] MEDS: TAMSULOSIN 0.4 MG (FLOMAX) CAP PO SCH (10:38)
[2020-10-21] MEDS: LEVETIRACETAM 500 MG (KEPPRA) TAB PO SCH ×2 (10:38→20:50)
[2020-10-21] MEDS: polyethylene glycoL POWDER 17 GM (MIRALAX) PACK PO SCH ×2 (10:39→20:53)
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
[2020-10-21 16:00] VITALS: BP 135/76
--- NOTE | 2020-10-21 19:08 | NUR ---
Bedside report received from NICOLE ROSAS, assume care of pt
[2020-10-21 20:45] VITALS: BP 125/76
--- NOTE | 2020-10-21 20:48 | NUR ---
Pt had small liq brown stool, states had several today, cleaned & changed
[2020-10-21] MEDS: amLODIPine 10 MG (NORVASC) TAB PO SCH (20:50)
[2020-10-21] MEDS: ZOLPIDEM 5 MG (AMBIEN) TAB PO SCH (20:50)
--- NOTE | 2020-10-21 20:50 | NUR ---
Pt refused Amina, Silviano & Felicia, stated this would proably be his last Alan, offered emotional support for pt
[2020-10-22 05:24] VITALS: BP 134/81
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
[2020-10-22] MEDS: polyethylene glycoL POWDER 17 GM (MIRALAX) PACK PO SCH ×2 (08:04→21:00)
[2020-10-22] MEDS: LEVETIRACETAM 500 MG (KEPPRA) TAB PO SCH ×2 (08:04→20:57)
[2020-10-22] MEDS: TAMSULOSIN 0.4 MG (FLOMAX) CAP PO SCH (08:05)
[2020-10-22] MEDS: SENNA W/DOCUSATE (SENOKOT S) TABLET PO SCH ×2 (08:05→20:57)
[2020-10-22] MEDS: DOCUSATE SODIUM 100 MG (COLACE) CAP PO SCH ×2 (08:05→20:57)
--- NOTE | 2020-10-22 10:14 | Physical Therapy Daily Note ---
PT Daily Note-Current Subjective Pt agreeable and looks forward to getting out of the room. Mental Status Patient Orientation: Person, Situation Transfers SCALE: Activities may be completed with or without assistive devices. 0-Ogswwnkeby-chhnrmx completes the activity by him/herself with no assistance from a helper. 5-Set-up or Clean-up Assistance-helper sets up or cleans up; patient completes activity. [place] assists only prior to or following the activity. 4-Supervision or Touching Assistance-helper provides verbal cues and/or touching/steadying and/or contact guard assistance as patient completes activity. Assistance may be provided throughout the activity or intermittently. 3-Partial/Moderate Assistance-helper does LESS THAN HALF the effort. [place] lifts, holds or supports trunk or limbs, but provides less than half the effort. 2-Substantial/Maximal Assistance-helper does MORE THAN HALF the effort. [place] lifts or holds trunk or limbs and provides more than half the effort. 2-Csvdnmgtg-lfssra does ALL the effort. Patient does none of the effort to complete the activity. Or, the assistance of 2 or more helpers is required for the patient to complete the activity. If activity was not attempted, code reason: 7-Patient Refused. 9-Not Applicable-not attempted and the patient did not perform the activity before the current illness, exacerbation or injury. 10-Not Attempted due to Environmental Limitations-(lack of equipment, weather restraints, etc.). 88-Not Attempted due to Medical Conditions or Safety Concerns. Roll Left & Right (QC): 3 Sit to Lying (QC): 3 Lying to Sitting/Side of Bed(Q: 3 Sit to Stand (QC): 3 Chair/Tfj-or-Byilz Xfer(QC): 3 Practiced sit to stand, bed to w/c, w/c to bed transfers, all with Moderate assist and verbal cues for instruction. Weight Bearing Right Lower Extremity: Right Full Weight Bearing Left Lower Extremity: Left Full Weight Bearing Gait Training gait train in parallel bars 8 rounds with Moderate assist to advance the right leg. Education on wt shift and using core strength to swing the right leg. Exercises Supine Ex: Bridging, Rolling, Glut sets, Lower trunk rotation, Knee to chest, Scooting, D1 F/E UE, D2 F/E UE, Hip abd/add Supine Reps: 20 Seated Therapy Exercises: Sit to stand supine mat activities including rolling; isometric sidelying rotation exercises; seated isometrics and PNF for trunk control Assessment Current Status: Fair Progress Pt put forth good effort this session and was motivated to exercise. PT Short Term Goals Short Term Goals Time Frame: Oct 21, 2020 Roll Left & Right: 4 Sit to lyin Lying to sitting on side of be: 3 Sit to stand: 3 Chair/lzx-xf-owmkl transfer: 3 Walk 10 feet: 3 PT Ceiling Insulation Blower Goals [place] Goals PT Ceiling Insulation Blower Goals Time Frame: Nov 04, 2020 Roll Left & Right (QC): 4 (SBA) Sit to Lying (QC): 4 (SBA) Lying-Sitting on Side/Bed(QC): 4 (SBA) Sit to Stand (QC): 4 (CGA) Chair/Afy-sb-Nbyzo Xfer(QC): 4 (CGA) Toilet Transfer (QC): 4 (CGA) Car Transfer (QC): 4 (CGA) Does the Patient Walk: No and Walking Goal IS indicated Walk 10 feet (QC): 3 (Yue) Walk 50ft with 2 Turns (QC): 3 (Yue) Walk 150 ft (QC): 88 Walking 10ft on Uneven Surface: 88 1 Step (curb) (QC): 88 4 Steps (QC): 88 12 Steps (QC): 88 Picking up an Object (QC): 88 Wheel 50 feet with 2 turns (QC: 6 Wheel 150 feet: 6 PT Plan Treatment/Plan Treatment Plan: Continue Plan of Care Treatment Plan: Bed Mobility, Education, Functional Activity [place], Functional Strength, Group Therapy, Gait, Safety, Therapeutic Exercise, Transfers Treatment Duration: Nov 04, 2020 Frequency: At least 5 of 7 days/Wk (IRF) Estimated Hrs Per Day: 1.5 hours per day Patient and/or Family Agrees t: Yes Time/GCodes Time In: 0900 Time Out: 1000 Total Billed Treatment Time: 60 Total Billed Treatment gt 15min, exercise 30 min, FA 15 min LOUISE MILES PT Oct 22, 2020 10:14
--- NOTE | 2020-10-22 12:44 | Physical Therapy Daily Note ---
PT Daily Note-Current Subjective States that he is doing okay. Transfers SCALE: Activities may be completed with or without assistive devices. 9-Eucyyixrmi-plojdcl completes the activity by him/herself with no assistance from a helper. 5-Set-up or Clean-up Assistance-helper sets up or cleans up; patient completes activity. [place] assists only prior to or following the activity. 4-Supervision or Touching Assistance-helper provides verbal cues and/or touching/steadying and/or contact guard assistance as patient completes activity. Assistance may be provided throughout the activity or intermittently. 3-Partial/Moderate Assistance-helper does LESS THAN HALF the effort. [place] lifts, holds or supports trunk or limbs, but provides less than half the effort. 2-Substantial/Maximal Assistance-helper does MORE THAN HALF the effort. [place] lifts or holds trunk or limbs and provides more than half the effort. 3-Yjwfnxzby-erduuy does ALL the effort. Patient does none of the effort to complete the activity. Or, the assistance of 2 or more helpers is required for the patient to complete the activity. If activity was not attempted, code reason: 7-Patient Refused. 9-Not Applicable-not attempted and the patient did not perform the activity before the current illness, exacerbation or injury. 10-Not Attempted due to Environmental Limitations-(lack of equipment, weather restraints, etc.). 88-Not Attempted due to Medical Conditions or Safety Concerns. Sit to Stand (QC): 2 Weight Bearing Right Lower Extremity: Right Full Weight Bearing Left Lower Extremity: Left Full Weight Bearing Exercises UBE x 5', (R) UE AAROM activities. NuStep Minutes: 5 NuStep Workload: 5 Assessment Current Status: Good Progress Patient fatigued quickly today. PT Short Term Goals Short Term Goals Time Frame: Oct 21, 2020 Roll Left & Right: 4 Sit to lyin Lying to sitting on side of be: 3 Sit to stand: 3 Chair/fwg-yn-bysgb transfer: 3 Walk 10 feet: 3 PT Skilled Nursing Goals Utilization Engineer Goals PT Utilization Engineer Goals Time Frame: Nov 04, 2020 Roll Left & Right (QC): 4 (SBA) Sit to Lying (QC): 4 (SBA) Lying-Sitting on Side/Bed(QC): 4 (SBA) Sit to Stand (QC): 4 (CGA) Chair/Eob-ys-Whedl Xfer(QC): 4 (CGA) Toilet Transfer (QC): 4 (CGA) Car Transfer (QC): 4 (CGA) Does the Patient Walk: No and Walking Goal IS indicated Walk 10 feet (QC): 3 (Yue) Walk 50ft with 2 Turns (QC): 3 (Yue) Walk 150 ft (QC): 88 Walking 10ft on Uneven Surface: 88 1 Step (curb) (QC): 88 4 Steps (QC): 88 12 Steps (QC): 88 Picking up an Object (QC): 88 Wheel 50 feet with 2 turns (QC: 6 Wheel 150 feet: 6 PT Plan Treatment/Plan Treatment Plan: Continue Plan of Care Treatment Plan: Bed Mobility, Education, Functional Activity Jerome, Functional Strength, Group Therapy, Gait, Safety, Therapeutic Exercise, Transfers Treatment Duration: Nov 04, 2020 Frequency: At least 5 of 7 days/Wk (IRF) Estimated Hrs Per Day: 1.5 hours per day Patient and/or Family Agrees t: Yes Time/GCodes Time In: 1100 Time Out: 1200 Total Billed Treatment Time: 60 Total Billed Treatment EX x 60' NATALIYA HOWARD PT Oct 22, 2020 12:44
--- NOTE | 2020-10-22 13:37 | Therapy Group Daily Note ---
Therapy Daily Group Note Patient Education Topic Energy Cons, Exercises Exercises LE Seated Exercise, Sit to/from Stand, Stretching, UE Exercise Session Ratio (pt:therapist): 3:1 Goal of Session: Education on ARU Expectations, Energy Conservation Tech., UE/LE Strengthing, Use of Adaptive Equipment To provide opportunity to critically think, speak, and interact in a group setting. Group was a reinforcement to home exercsise by allowing opportunity for patient to demonstrate exercises to his peers. Goal Met for this Session: Yes Pt Benefit of Group: Contributions to Others, Increased Functional Strength, I mproved Cognition, Socialization Pt performed well in the group setting. Showed an uptic in motivation through social interaction and discussion of common problems/challenges. Start Time: 12:30 Stop Time: 13:30 Total Billed Treatment Time: 60 Total Billed Treatment visit, group 60 minutes LOUISE MILES PT Oct 22, 2020 13:37
[2020-10-22 17:16] VITALS: BP 127/72
[2020-10-22] MEDS: ZOLPIDEM 5 MG (AMBIEN) TAB PO SCH (20:57)
[2020-10-22] MEDS: amLODIPine 10 MG (NORVASC) TAB PO SCH (20:58)
[2020-10-22] MEDS: MICONAZOLE 2% POWDER (DESENEX AF) 90 GM TOP SCH (21:00)
[2020-10-23 05:40] VITALS: BP 126/60
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
[2020-10-23] MEDS: TAMSULOSIN 0.4 MG (FLOMAX) CAP PO SCH (09:55)
[2020-10-23] MEDS: LEVETIRACETAM 500 MG (KEPPRA) TAB PO SCH ×2 (09:55→21:00)
[2020-10-23] MEDS: MICONAZOLE 2% POWDER (DESENEX AF) 90 GM TOP SCH ×2 (09:56→21:02)
[2020-10-23] MEDS: polyethylene glycoL POWDER 17 GM (MIRALAX) PACK PO SCH ×2 (10:16→21:00)
[2020-10-23] MEDS: DOCUSATE SODIUM 100 MG (COLACE) CAP PO SCH ×2 (10:16→21:00)
[2020-10-23] MEDS: SENNA W/DOCUSATE (SENOKOT S) TABLET PO SCH ×2 (10:16→21:00)
--- NOTE | 2020-10-23 17:15 | NUR ---
Pt reported that he hasn't been able to find his glasses since last night. This RN & another floor nurse looked through linens, clothing, on floor & on bed, along with closet, throughout room. This RN went through all of pt's dirty laundry in hamper & did not found glasses.
[2020-10-23 17:26] VITALS: BP 129/71
--- NOTE | 2020-10-23 18:20 | NUR ---
PT RESTING IN BED, STATES, "AHH, THIS IS THE FIRST NIGHT I'VE FELT COMFORTABLE." FAMILY DELIVERED PT'S BROWN COMFORTER TO HIM, & THIS WAS PLACED ON HIM IN BED, & PT STATES THAT THE COMFORTER FROM HOME MADE ALL THE DIFFERENCE." STAFF CONTINUE TO LOOK FOR GLASSES.
[2020-10-23] MEDS: ALPRAZolam 0.25 MG (XANAX) TAB PO PRN (21:00)
[2020-10-23] MEDS: amLODIPine 10 MG (NORVASC) TAB PO SCH (21:00)
[2020-10-23] MEDS: ZOLPIDEM 5 MG (AMBIEN) TAB PO SCH (21:00)
[2020-10-24 06:05] VITALS: BP 141/75
[2020-10-24 06:20] LABS: BASOPHILS % (AUTO) 0 % (0-10); EOSINOPHILS # (AUTO) 0.2 10^3/uL (0.0-0.3); EOSINOPHILS % (AUTO) 2 % (0-10); HEMATOCRIT 42 % (40-54); HEMOGLOBIN 14.5 g/dL (13.3-17.7); LYMPHOCYTES # (AUTO) 1.1 10^3/uL (1.0-4.0); LYMPHOCYTES % (AUTO) 12 % (12-44); MEAN CORPUSCULAR HEMOGLOBIN 31 pg (25-34); MEAN CORPUSCULAR HGB CONC 35 g/dL (32-36); MEAN CORPUSCULAR VOLUME 89 fL (80-99); MEAN PLATELET VOLUME 8.9 fL (9.0-12.2); MONOCYTES # (AUTO) 0.6 10^3/uL (0.0-1.0); MONOCYTES % (AUTO) 6 % (0-12); NEUTROPHILS # (AUTO) 7.4 10^3/uL (1.8-7.8); NEUTROPHILS % (AUTO) 79 % (42-75); PLATELET COUNT 94 10^3/uL (130-400); WHITE BLOOD COUNT 9.3 10^3/uL (4.3-11.0)
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
[2020-10-24 06:45] LABS: ALANINE AMINOTRANSFERASE 30 U/L (0-55); ALBUMIN 3.1 GM/DL (3.2-4.5); ALKALINE PHOSPHATASE 66 U/L (40-136); BUN/CREATININE RATIO 37; CALCIUM 8.6 MG/DL (8.5-10.1); CARBON DIOXIDE 25 MMOL/L (21-32); CHLORIDE 104 MMOL/L (98-107); CREATININE SERUM 0.75 MG/DL (0.60-1.30); GFR ESTIMATED > 60; GLUCOSE 87 MG/DL (70-105); SODIUM 136 MMOL/L (135-145); TOTAL PROTEIN 5.9 GM/DL (6.4-8.2)
[2020-10-24] MEDS: polyethylene glycoL POWDER 17 GM (MIRALAX) PACK PO SCH ×2 (09:11→20:30)
[2020-10-24] MEDS: DOCUSATE SODIUM 100 MG (COLACE) CAP PO SCH ×2 (09:11→20:30)
[2020-10-24] MEDS: SENNA W/DOCUSATE (SENOKOT S) TABLET PO SCH ×2 (09:12→20:30)
[2020-10-24] MEDS: LEVETIRACETAM 500 MG (KEPPRA) TAB PO SCH ×2 (09:12→20:28)
[2020-10-24] MEDS: TAMSULOSIN 0.4 MG (FLOMAX) CAP PO SCH (09:12)
[2020-10-24] MEDS: MICONAZOLE 2% POWDER (DESENEX AF) 90 GM TOP SCH ×2 (09:13→20:30)
--- NOTE | 2020-10-24 11:13 | Occupational Ther Daily Note ---
OT Current Status-Daily Note Subjective Pt laying in bed, agreeable to OT tx. ADL-Treatment Therapy Code Descriptions/Definitions Functional [place] Measure: 0=Not Assessed/NA 4=Minimal Assistance 1=Total Assistance 5=Supervision or Setup 2=Maximal Assistance 6=Modified [place] 3=Moderate Assistance 7=Complete IndependenceSCALE: Activities may be completed with or without assistive devices. 9-Hxfjcgemiu-kzdoeqo completes the activity by him/herself with no assistance from a helper. 5-Set-up or Clean-up Assistance-helper sets up or cleans up; patient completes activity. [place] assists only prior to or following the activity. 4-Supervision or Touching Assistance-helper provides verbal cues and/or touching/steadying and/or contact guard assistance as patient completes activity. Assistance may be provided throughout the activity or intermittently. 3-Partial/Moderate Assistance-helper does LESS THAN HALF the effort. [place] lifts, holds or supports trunk or limbs, but provides less than half the effort. 2-Substantial/Maximal Assistance-helper does MORE THAN HALF the effort. [place] lifts or holds trunk or limbs and provides more than half the effort. 9-Fkrsisolg-gdyuua does ALL the effort. Patient does none of the effort to com plete the activity. Or, the assistance of 2 or more helpers is required for the patient to complete the activity. If activity was not attempted, code reason: 7-Patient Refused. 9-Not Applicable-not attempted and the patient did not perform the activity before the current illness, exacerbation or injury. 10-Not Attempted due to Environmental Limitations-(lack of equipment, weather restraints, etc.). 88-Not Attempted due to Medical Conditions or Safety Concerns. Oral Hygiene (QC): 4 (SBA, cues for sequencing of task seated at sink.) Shower/Bathe Self (QC): 3 (Pt seated on SC, required moderate cues for sequencing of tasks. Assist to wash LUE.) Upper Body Dressing (QC): 3 (Mod A. Pt able to verbalize he needed to thread RUE first, but then started threading LUE.) Lower Body Dressing (QC): 2 (Max A, OT threaded RLE, Pt able to thread LUE. OT managed pants up as pt stood at walker, mod A standing balance.) On/Off Footwear: 2 (Max A, pt able to doff L sock, assist doffing R sock and assist donning bilateral socks.) Other Treatment Pt laying in bed, transferred supine to sit EOB with moderate assistance (A trunk and slight assist RLE). Pt transferred to / on L side (stronger side) via SPT, moderate assistance. Pt taken to bathroom and positioned for SPT t owards L side onto TX. Pt stood at [facility], mod A sit to stand. Pt had difficulty with transfer, OT instructed pt to take step with L leg but pt did not move left leg. Pt sat back in the w/, then a 2nd person came in to assist with transfer. Pt completed showering at TX, washing/drying all parts in sitting. Pt began using dry wash cloth over his body, did not put soap or water on wash cloth first. OT instructed pt to use soap, pt had difficulty sequencing how to put washcloth on seat in order for him to squeeze soap with L hand, OT had to assist pt with putting soap on washcloth. OT held shower head throughout shower and provided moderate cues for sequencing. After shower, pt donned shirt. OT asked pt which arm he needed to put in shirt first, he recalled he needed to put his R arm in first, but continued threading L hand all the way through the sleeve. OT assisted pt with threading RUE. Pt attempted to stand prior to putting shirt overhead, requiring cue. Then pt required assistance with managing down his back. Pt transferred to / via SPT towards R side, moderate assistance, pt attempted to sit too soon. Pt scooted back in chair then donned pants and socks at [facility]. OT placed FWW in front of pt, he required cues for hand placement prior to stand, then moderate assistance with standing balance as OT performed pant hike. Pt sat back in [facility], completed oral care at [facility] for sequencing. Pt propelled w/c to therapy gym, min A with w/c mobility. Arm bike attempted but pt unable to hold onto R handle with R hand, task terminated. In order to increase functional use of RUE, pt completed x10 towel slides in flexion at table, required assistance with flexion and extension movements. Pt propelled back to room, min A. OT educated pt on how to use his IPad to communicate with family, pt able to navigate ipad to unlock and put in password. Attempted to set up [employer] or Facebook with pt's family for videocalls, pt's family notified that a password is needed to download applications. Post tx, pt seated in w/c, call light in reach and all needs met. Education OT Patient Education: Correct positioning, Energy conservation, Modified ADL techniques, Progress toward Goal/Update tx plan, Purpose of tx/functional activities, Transfer techniques Teaching Recipient: Patient Teaching Methods: Discussion Response to Teaching: Verbalize Understanding OT Short Term Goals Short Term Goals Toileting hygiene: 3 Shower/bathe self: 4 Lower body dressin Putting on/taking off footwear: 3 OT Alf Goals Alf Goals Time Frame: Nov 05, 2020 Eating (QC): 6 Oral Hygiene (QC): 6 Toileting Hygiene (QC): 6 Shower/Bathe Self (QC): 5 Upper Body Dressing (QC): 6 Lower Body Dressing (QC): 3 On/Off Footwear (QC): 5 Additional Goals: 1-Demonstrate ADL Tasks, 2-Verbalize Understanding, 3- ImproveStrength/Jerome 1=Demonstrate adherence to instructed precautions during ADL tasks. 2=Patient will verbalize/demonstrate understanding of assistive devices/modifications for ADL. 3=Patient will improve strength/tolerance for activity to enable patient to perform ADL's. OT Education/Plan Problem List/Assessment Assessment: Decreased Activ Tolerance, Decreased UE Strength, Impaired Cognition, Impaired Funct Balance, Impaired I ADL's, Impaired Self-Care Skills, Restricted Funct UE ROM Discharge Recommendations Plan/Recommendations: Continue POC Treatment Plan/Plan of Care Patient would benefit from OT for education, treatment and training to promote independence in ADL's, mobility, safety and/or upper extremity function for ADL's. Plan of Care: ADL Retraining, Caregiver Training, Concurrent Therapy, Functional Mobility, Group Exercise/Act as Ind, UE Funct Exercise/Act, UE Neuromus Re-Ed/Coord, W/C Management Training Treatment Duration: Nov 05, 2020 Frequency: At least 5 of 7 days/Wk (IRF) Estimated Hrs Per Day: 1.5 hours per day Agreement: Yes Rehab Potential: Fair Time/GCodes Start Time: 09:45 Stop Time: 11:00 Total Time Billed (hr/min): 75 Billed Treatment Time 1, ADL 4 (60'), FA (15') ALBERTO VALENCIA OT Oct 24, 2020 11:13
--- NOTE | 2020-10-24 12:01 | Physical Therapy Daily Note ---
PT Daily Note-Current Subjective Pt. is very solemn and states " I only have 4 months to live and I'm afraid I may never get out of here". This ASSISTANT MECHANIC inquired what pt.wants in this situation, pt. stating "I'm going to need a hospital bed and I want to be at home with my family and have care there." This ASSISTANT MECHANIC insures pt. I will advocate for his wishes. Pt s/o his right foot and toes are sore, Pain Numeric Pain Scale: 4 Location: Right Location Body Site: Foot (and toes) Pain Description: Tightness Mental Status Patient Orientation: Normal For Age Attachments: Other-See Comments (mask while out of room) Transfers SCALE: Activities may be completed with or without assistive devices. 2-Ysgglztncj-seqeudr completes the activity by him/herself with no assistance from a helper. 5-Set-up or Clean-up Assistance-helper sets up or cleans up; patient completes activity. [place] assists only prior to or following the activity. 4-Supervision or Touching Assistance-helper provides verbal cues and/or touching/steadying and/or contact guard assistance as patient completes activity. Assistance may be provided throughout the activity or intermittently. 3-Partial/Moderate Assistance-helper does LESS THAN HALF the effort. [place] lifts, holds or supports trunk or limbs, but provides less than half the effort. 2-Substantial/Maximal Assistance-helper does MORE THAN HALF the effort. [place] lifts or holds trunk or limbs and provides more than half the effort. 0-Ablnuasah-kbejeh does ALL the effort. Patient does none of the effort to co mplete the activity. Or, the assistance of 2 or more helpers is required for the patient to complete the activity. If activity was not attempted, code reason: 7-Patient Refused. 9-Not Applicable-not attempted and the patient did not perform the activity before the current illness, exacerbation or injury. 10-Not Attempted due to Environmental Limitations-(lack of equipment, weather restraints, etc.). 88-Not Attempted due to Medical Conditions or Safety Concerns. Roll Left & Right (QC): 3 Sit to Lying (QC): 4 Lying to Sitting/Side of Bed(Q: 3 Sit to Stand (QC): 3 Chair/Eeg-oo-Xoolc Xfer(QC): 3 pt. now requiring mod assist for TRFs and has a "pusher" type response requiring this ASSISTANT MECHANIC to overcome pt. while TRFing. SPTs bed to w/c and w/c to Rx table and back etc Weight Bearing Right Lower Extremity: Right Full Weight Bearing Left Lower Extremity: Left Full Weight Bearing Wheelchair Training Does the Pt Use a Wheelchair?: Yes Type of Wheelchair: Manual pt. required mod to max assist for w/c mob Exercises Supine Ex: Ankle pumps, Rolling, D1 F/E UE, Straight leg raise, Hip abd/add Supine Reps: 15 Treatments pt. requested stretching of RLE. passive ROM and stretching done in all possible planes with attention to right foot and toes with some massage to same with massage lotion. pt. commenting this relieved some discomfort Assessment Current Status: Poor Progress, Regressing TRFs and mobility require increased assistance as well as increased assist for w/c mobility PT Short Term Goals Short Term Goals Time Frame: Oct 21, 2020 Roll Left & Right: 4 Sit to lyin Lying to sitting on side of be: 3 Sit to stand: 3 Chair/fam-nf-twvhg transfer: 3 Walk 10 feet: 3 PT [employer] Straightener Goals [place] Straightener Goals PT [employer] Straightener Goals Time Frame: Nov 04, 2020 Roll Left & Right (QC): 4 (SBA) Sit to Lying (QC): 4 (SBA) Lying-Sitting on Side/Bed(QC): 4 (SBA) Sit to Stand (QC): 4 (CGA) Chair/Sqx-cb-Xofip Xfer(QC): 4 (CGA) Toilet Transfer (QC): 4 (CGA) Car Transfer (QC): 4 (CGA) Does the Patient Walk: No and Walking Goal IS indicated Walk 10 feet (QC): 3 (Yue) Walk 50ft with 2 Turns (QC): 3 (Yue) Walk 150 ft (QC): 88 Walking 10ft on Uneven Surface: 88 1 Step (curb) (QC): 88 4 Steps (QC): 88 12 Steps (QC): 88 Picking up an Object (QC): 88 Wheel 50 feet with 2 turns (QC: 6 Wheel 150 feet: 6 PT Plan Treatment/Plan Treatment Plan: Continue Plan of Care (as tolerated) Treatment Plan: Bed Mobility, Education, Functional Activity Jerome, Functional Strength, Group Therapy, Gait, Safety, Therapeutic Exercise, Transfers Treatment Duration: Nov 04, 2020 Frequency: At least 5 of 7 days/Wk (IRF) Estimated Hrs Per Day: 1.5 hours per day Patient and/or Family Agrees t: Yes Safety Risks/Education Patient Education: Transfer Techniques, Correct Positioning, W/C Management, Disease Process, Safety Issues Teaching Recipient: Patient Teaching Methods: Demonstration, Discussion Response to Teaching: Unable to Return Demonstration, Reinforcement Needed Time/GCodes Time In: 1100 Time Out: 1200 Total Billed Treatment Time: 60 Total Billed Treatment 1,FA35m,WC10m,EX15m SHEKHAR MUNIZ ASSISTANT MECHANIC Oct 24, 2020 12:01
--- NOTE | 2020-10-24 15:02 | Physical Therapy Daily Note ---
PT Daily Note-Current Subjective pt.quiet, somnolent. Pain Location: No Pain Reported Transfers SCALE: Activities may be completed with or without assistive devices. 6-Waefmbpqbp-neycsnv completes the activity by him/herself with no assistance from a helper. 5-Set-up or Clean-up Assistance-helper sets up or cleans up; patient completes activity. [place] assists only prior to or following the activity. 4-Supervision or Touching Assistance-helper provides verbal cues and/or touching/steadying and/or contact guard assistance as patient completes activity. Assistance may be provided throughout the activity or intermittently. 3-Partial/Moderate Assistance-helper does LESS THAN HALF the effort. [place] lifts, holds or supports trunk or limbs, but provides less than half the effort. 2-Substantial/Maximal Assistance-helper does MORE THAN HALF the effort. [place] lifts or holds trunk or limbs and provides more than half the effort. 2-Uinouqaai-smyrlb does ALL the effort. Patient does none of the effort to complete the activity. Or, the assistance of 2 or more helpers is required for the patient to complete the activity. If activity was not attempted, code reason: 7-Patient Refused. 9-Not Applicable-not attempted and the patient did not perform the activity before the current illness, exacerbation or injury. 10-Not Attempted due to Environmental Limitations-(lack of equipment, weather restraints, etc.). 88-Not Attempted due to Medical Conditions or Safety Concerns. rolls left and right min assist Weight Bearing Right Lower Extremity: Right Full Weight Bearing Left Lower Extremity: Left Full Weight Bearing Exercises Supine Ex: Ankle pumps, Quad Set, Rolling, Heel Slides, Straight leg raise, Hip abd/add Supine Reps: 10 Assessment Current Status: Regressing PT Short Term Goals Short Term Goals Time Frame: Oct 21, 2020 Roll Left & Right: 4 Sit to lyin Lying to sitting on side of be: 3 Sit to stand: 3 Chair/hcr-pd-cjphk transfer: 3 Walk 10 feet: 3 PT Weight Tester Goals Usp Goals PT Weight Tester Goals Time Frame: Nov 04, 2020 Roll Left & Right (QC): 4 (SBA) Sit to Lying (QC): 4 (SBA) Lying-Sitting on Side/Bed(QC): 4 (SBA) Sit to Stand (QC): 4 (CGA) Chair/Jit-lp-Dbqip Xfer(QC): 4 (CGA) Toilet Transfer (QC): 4 (CGA) Car Transfer (QC): 4 (CGA) Does the Patient Walk: No and Walking Goal IS indicated Walk 10 feet (QC): 3 (Yue) Walk 50ft with 2 Turns (QC): 3 (Yue) Walk 150 ft (QC): 88 Walking 10ft on Uneven Surface: 88 1 Step (curb) (QC): 88 4 Steps (QC): 88 12 Steps (QC): 88 Picking up an Object (QC): 88 Wheel 50 feet with 2 turns (QC: 6 Wheel 150 feet: 6 PT Plan Treatment/Plan Treatment Plan: Continue Plan of Care (as tolerted) Treatment Plan: Bed Mobility, Education, Functional Activity Jerome, Functional Strength, Group Therapy, Gait, Safety, Therapeutic Exercise, Transfers Treatment Duration: Nov 04, 2020 Frequency: At least 5 of 7 days/Wk (IRF) Estimated Hrs Per Day: 1.5 hours per day Patient and/or Family Agrees t: Yes Time/GCodes Time In: 1430 Time Out: 1445 Total Billed Treatment Time: 15 Total Billed Treatment 1,EX15m SHEKHAR MUNIZ TAKER OFF Oct 24, 2020 15:02
--- NOTE | 2020-10-24 15:12 | Speech Therapy Daily Note ---
Speech Daily Progress Note Subjective Date Seen by Provider: Oct 24, 2020 Time Seen by Provider: 00:30 Patient resting in his bed, however he was agreeable to ST. Patient was quieter this date and took longer than before to answer questions. Patient did state he found out he only has about 4 months to live. Patient stresses he wants to go home with family. Objective Patient completed a series of general information questions with 70% given moderate v/c's and repetitions. Assessment Assessment Current Status: Regressing Treatment Plan Continue Plan of Care Speech Short Term Goals Short Term Goals Short Term Goals 1) The patient will complete memory exercises with minimal cues at 90% or greater. 2) The patient will complete confrontational naming exercises with minimal cues at 90% or greater. Speech Sales Counselor Goals Snf Goals Patient will improve expressive communication to meet wants/needs. Speech-Plan Patient/Family Goals Patient/Family Goals: Patient plans on returning to his home where he lives with his . Treatment Plan Speech Therapy Treatment Plan: Continue Plan of Care Treatment Duration: Oct 17, 2020 Frequency: 4 times per week (Patient will receive skilled ST 4-5x per week) Estimated Hrs Per Day: .5 hour per day Rehab Potential: Fair Barriers to Learning: Patient's medical status Pt/Family Agrees to Plan: Yes Safety Risks/Education Teaching Recipient: Patient Teaching Methods: Demonstration, Discussion Response to Teaching: Verbalize Understanding, Return Demonstration Education Topics Provided: Patient's continued safety within his room, communication of wants/needs Time Speech Therapy Time In: 13:00 Speech Therapy Time Out: 13:30 Total Billed Time: 30 Billed Treatment Time 1, SABIHA Gonzalez Oct 24, 2020 15:12
[2020-10-24] MEDS: ACETAMINOPHEN 325 MG TABLET PO PRN (16:07)
[2020-10-24 17:56] VITALS: BP 120/73
--- NOTE | 2020-10-24 17:58 | NUR ---
"RD ASSESSMENT PMHx: hypercholesterolemia; HTN; CA(brain); current - brain tumor with craniotomy and resection 10/12/2020 PT INTERACTION: Pt was awake and pleasant during nutrition assessment. Pt states current appetite is good. Note avg PO intake 96% x2d, per chart review. Pt states following a regular diet at home, and has no issues with chewing/swallowing food. Pt states no recent issues with nausea, vomiting, constipation, or diarrhea. Note last BM was 10/24, and pt currently on bowel regimen of colace BID, senna BID, and miralax BID, per chart review. Pt states no recent wt changes. Note unable to determine recent wt hx, per chart review. ABNORMAL NUTRITION-RELATED LAB VALUES LOW: Pro 5.9; alb 3.1; HIGH: BUN 28; Est. kcal needs: 0848-4772 kcal | 20-25 kcal/kg Est. Pro needs: 71-89 g Pro | 0.8-1.0 g Pro/kg PES STATEMENT: Given current appetite and PO intake, no nutrition diagnosis at this time (NO-1.1). INTERVENTION: Continue with current diet order of Regular diet. Will continue to follow and reassess as pt needs, intake, and status change. Ana ÁLVAREZ, MS RD LD [phone] cell"
[2020-10-24] MEDS: amLODIPine 10 MG (NORVASC) TAB PO SCH (20:28)
[2020-10-24] MEDS: ZOLPIDEM 5 MG (AMBIEN) TAB PO SCH (20:28)
[2020-10-24] MEDS: ACYCLOVIR 400 MG TABLET (ZOVIRAX) PO SCH (20:29)
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
[2020-10-25] MEDS: HYDROcodone/APAP 5 MG/325 MG (LORTAB) TAB PO PRN (03:26)
[2020-10-25 05:41] VITALS: BP 127/62
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
[2020-10-25] MEDS: SENNA W/DOCUSATE (SENOKOT S) TABLET PO SCH ×2 (09:00→20:49)
[2020-10-25] MEDS: DOCUSATE SODIUM 100 MG (COLACE) CAP PO SCH ×2 (09:00→20:48)
[2020-10-25] MEDS: TAMSULOSIN 0.4 MG (FLOMAX) CAP PO SCH (09:00)
[2020-10-25] MEDS: MICONAZOLE 2% POWDER (DESENEX AF) 90 GM TOP SCH ×2 (09:01→20:48)
[2020-10-25] MEDS: ACYCLOVIR 400 MG TABLET (ZOVIRAX) PO SCH ×4 (09:01→20:48)
[2020-10-25] MEDS: LEVETIRACETAM 500 MG (KEPPRA) TAB PO SCH ×2 (09:01→20:47)
[2020-10-25] MEDS: polyethylene glycoL POWDER 17 GM (MIRALAX) PACK PO SCH ×2 (09:01→20:48)
--- NOTE | 2020-10-25 09:21 | Occupational Ther Daily Note ---
OT Current Status-Daily Note Subjective Pt agreeable to therapy tx, indicates pain in R lower leg, but when asked to rate pain he states 0/10. Pt emotional and tearful throughout session, pt feels as though he will never get to leave the hospital. Mental Status/Objective Patient Orientation: Person, Place, Time, Situation ADL-Treatment Therapy Code Descriptions/Definitions Functional [place] Measure: 0=Not Assessed/NA 4=Minimal Assistance 1=Total Assistance 5=Supervision or Setup 2=Maximal Assistance 6=Modified [place] 3=Moderate Assistance 7=Complete IndependenceSCALE: Activities may be completed with or without assistive devices. 6-Wjfmxmvzvp-igdnvyr completes the activity by him/herself with no assistance from a helper. 5-Set-up or Clean-up Assistance-helper sets up or cleans up; patient completes activity. [place] assists only prior to or following the activity. 4-Supervision or Touching Assistance-helper provides verbal cues and/or touchin g/steadying and/or contact guard assistance as patient completes activity. Assistance may be provided throughout the activity or intermittently. 3-Partial/Moderate Assistance-helper does LESS THAN HALF the effort. [place] lifts, holds or supports trunk or limbs, but provides less than half the effort. 2-Substantial/Maximal Assistance-helper does MORE THAN HALF the effort. [place] lifts or holds trunk or limbs and provides more than half the effort. 6-Kgqrlqiob-btcjtn does ALL the effort. Patient does none of the effort to complete the activity. Or, the assistance of 2 or more helpers is required for the patient to complete the activity. If activity was not attempted, code reason: 7-Patient Refused. 9-Not Applicable-not attempted and the patient did not perform the activity before the current illness, exacerbation or injury. 10-Not Attempted due to Environmental Limitations-(lack of equipment, weather restraints, etc.). 88-Not Attempted due to Medical Conditions or Safety Concerns. Oral Hygiene (QC): 5 (set up at tray table.) Lower Body Dressing (QC): 1 (Assist x2, 1 person to assist with balance in stand and 1 to assist with pant hike. OT threaded RLE for pt, pt had poor sitting balance while threading LLE, leaning back into bed and towards R side requiring assist to correct.) Other Treatment OT/PT cotreat due to skill of 2 clinicians required which a rehab nursing tech could not perform in order to coordinate UE/LEs, and due to pt's poor functional mobility, endurance, balance, and strength. OT focused on ADLS, UE placement, and cues for sequencing while PT focused on transfers, standing balance, LE placement, and gross overall movements. Pt laying in bed, required max A to transfer supine to sit EOB, assist with RLE and trunk. Pt donned pants at EOB, OT threaded RLE, then pt attempted to thread LLE. Pt had poor sitting balance, leaning backwards and towards R side, required assistance to correct balance. Pt then began threading LLE into R pant leg, required assistance to correct. Assist x2 needed in stand for pant hike. Pt transferred to w/c, SPT towards L side (strong side). Pt propelled to therapy gym, min A with w/c mobility, then to parallel bars. Pt stood at parallel bars x3, weight shifting as tolerated. Assist required for RUE hand placement onto bars (pt unable to place hand onto bar himself), and assist with positioning RLE. After 3 stand, pt states he is not able to do anymore and requests to return to room. Pt propelled back to room, then SPT to w/c. [id number] OT tx: Pt seated in w/c, brushed teeth with set up assist at tray table. OT assisted pt with washing his hair/incision using baby shampoo. Nurse preset to give pt med, pt able to take meds independently. Post tx, pt seated in recliner, call light in reach and all needs met. Education OT Patient Education: Correct positioning, Modified ADL techniques, Progress toward Goal/Update tx plan, Purpose of tx/functional activities Teaching Recipient: Patient Teaching Methods: Discussion Response to Teaching: Verbalize Understanding OT Short Term Goals Short Term Goals Toileting hygiene: 3 Shower/bathe self: 4 Lower body dressin Putting on/taking off footwear: 3 OT Half-Way Goals Contact Lens Assistant Goals Time Frame: Nov 05, 2020 Eating (QC): 6 Oral Hygiene (QC): 6 Toileting Hygiene (QC): 6 Shower/Bathe Self (QC): 5 Upper Body Dressing (QC): 6 Lower Body Dressing (QC): 3 On/Off Footwear (QC): 5 Additional Goals: 1-Demonstrate ADL Tasks, 2-Verbalize Understanding, 3- ImproveStrength/[place] 1=Demonstrate adherence to instructed precautions during ADL tasks. 2=Patient will verbalize/demonstrate understanding of assistive devices/modifications for ADL. 3=Patient will improve strength/tolerance for activity to enable patient to perform ADL's. OT Education/Plan Problem List/Assessment Assessment: Decreased Activ Tolerance, Decreased UE Strength, Impaired Funct Balance, Impaired I ADL's, Impaired Self-Care Skills, Restricted Funct UE ROM Discharge Recommendations Plan/Recommendations: Continue POC Treatment Plan/Plan of Care Patient would benefit from OT for education, treatment and training to promote independence in ADL's, mobility, safety and/or upper extremity function for ADL's. Plan of Care: ADL Retraining, Caregiver Training, Concurrent Therapy, Functional Mobility, Group Exercise/Act as Ind, UE Funct Exercise/Act, UE Neuromus Re-Ed/Coord, W/C Management Training Treatment Duration: Nov 05, 2020 Frequency: At least 5 of 7 days/Wk (IRF) Estimated Hrs Per Day: 1.5 hours per day Agreement: Yes Rehab Potential: Fair Time/GCodes Start Time: 08:00 Stop Time: 09:15 Total Time Billed (hr/min): 75 Billed Treatment Time 1, ADL 2 (25'), FA 3 (50') ALBERTO VALENCIA OT Oct 25, 2020 09:21
--- NOTE | 2020-10-25 10:04 | Physical Therapy Daily Note ---
PT Daily Note-Current Subjective Pt laying supine in bed upon arrival. Pt agrees to PT/OT co-treat. Mental Status Patient Orientation: Person, Confused, Place Transfers SCALE: Activities may be completed with or without assistive devices. 6-Wjxtxyjsnf-wypfsbe completes the activity by him/herself with no assistance from a helper. 5-Set-up or Clean-up Assistance-helper sets up or cleans up; patient completes activity. [place] assists only prior to or following the activity. 4-Supervision or Touching Assistance-helper provides verbal cues and/or touching/steadying and/or contact guard assistance as patient completes activity. Assistance may be provided throughout the activity or intermittently. 3-Partial/Moderate Assistance-helper does LESS THAN HALF the effort. [place] lift s, holds or supports trunk or limbs, but provides less than half the effort. 2-Substantial/Maximal Assistance-helper does MORE THAN HALF the effort. [place] lifts or holds trunk or limbs and provides more than half the effort. 3-Ezwcyiexk-meetnc does ALL the effort. Patient does none of the effort to complete the activity. Or, the assistance of 2 or more helpers is required for the patient to complete the activity. If activity was not attempted, code reason: 7-Patient Refused. 9-Not Applicable-not attempted and the patient did not perform the activity before the current illness, exacerbation or injury. 10-Not Attempted due to Environmental Limitations-(lack of equipment, weather restraints, etc.). 88-Not Attempted due to Medical Conditions or Safety Concerns. Lying to Sitting/Side of Bed(Q: 2 Sit to Stand (QC): 2 Weight Bearing Right Lower Extremity: Right Full Weight Bearing Left Lower Extremity: Left Full Weight Bearing Wheelchair Training Does the Pt Use a Wheelchair?: Yes Wheel 50 ft with 2 turns (QC): 4 Wheel 150 ft (QC): 4 Type of Wheelchair: Manual Exercises Seated Therapy Exercises: Ankle pumps, Sit to stand, Long arc quads, Hip flexion, Kicking activity Seated Reps: 15 Treatments OT/PT cotreat due to skill of 2 clinicians required which a clinical rehabilitation specialist could not perform in order to coordinate UE/LEs, and due to pt's poor functional mobility, endurance, balance, and strength. OT focused on ADLS, UE placement, and cues for sequencing while PT focused on transfers, standing balance, LE placement, and gross overall movements. Pt laying in bed, required max A to transfer supine to sit EOB, assist with RLE and trunk. Pt donned pants at EOB, OT threaded RLE, then pt attempted to thread LLE. Pt had poor sitting balance, leaning backwards and towards R side, required assistance to correct balance. Pt then began threading LLE into R pant leg, required assistance to correct. Assist x2 needed in stand for pant hike. Pt transferred to w/c, SPT towards L side (strong side). Pt propelled to therapy gym, min A with w/c mobility, then to parallel bars. Pt stood at parallel bars x3, weight shifting as tolerated. Assist required for RUE hand placement onto bars (pt unable to place hand onto bar himself), and assist with positioning RLE. After 3 stand, pt states he is not able to do anymore and requests to return to room. Pt propelled back to room, then SPT to w/c. Assessment Current Status: Fair Progress Pt has difficulty with R knee buckling at times so BAGGAGE AND MAIL AGENT assists with extension. PT Short Term Goals Short Term Goals Time Frame: Oct 21, 2020 Roll Left & Right: 4 Sit to lyin Lying to sitting on side of be: 3 Sit to stand: 3 Chair/ylw-hn-kewdx transfer: 3 Walk 10 feet: 3 PT Sprinkling System Installer Goals Assisted Goals PT Sprinkling System Installer Goals Time Frame: Nov 04, 2020 Roll Left & Right (QC): 4 (SBA) Sit to Lying (QC): 4 (SBA) Lying-Sitting on Side/Bed(QC): 4 (SBA) Sit to Stand (QC): 4 (CGA) Chair/Yrd-pe-Ycfda Xfer(QC): 4 (CGA) Toilet Transfer (QC): 4 (CGA) Car Transfer (QC): 4 (CGA) Does the Patient Walk: No and Walking Goal IS indicated Walk 10 feet (QC): 3 (Yue) Walk 50ft with 2 Turns (QC): 3 (Yue) Walk 150 ft (QC): 88 Walking 10ft on Uneven Surface: 88 1 Step (curb) (QC): 88 4 Steps (QC): 88 12 Steps (QC): 88 Picking up an Object (QC): 88 Wheel 50 feet with 2 turns (QC: 6 Wheel 150 feet: 6 PT Plan Problem List Problem List: Activity Tolerance, Functional Strength Treatment/Plan Treatment Plan: Continue Plan of Care Treatment Plan: Bed Mobility, Education, Functional Activity [place], Functional Strength, Group Therapy, Gait, Safety, Therapeutic Exercise, Transfers Treatment Duration: Nov 04, 2020 Frequency: At least 5 of 7 days/Wk (IRF) Estimated Hrs Per Day: 1.5 hours per day Patient and/or Family Agrees t: Yes Safety Risks/Education Patient Education: Transfer Techniques, Correct Positioning, W/C Management, Safety Issues Teaching Recipient: Patient Teaching Methods: Discussion Response to Teaching: Verbalize Understanding Time/GCodes Time In: 800 Time Out: 900 Total Billed Treatment Time: 60 Total Billed Treatment 1, FA (15m), WCH (15m), EX x2 (30m) KAITY CANTU PTA Oct 25, 2020 10:04
--- NOTE | 2020-10-25 13:41 | Speech Therapy Daily Note ---
Speech Daily Progress Note Subjective Date Seen by Provider: Oct 25, 2020 Time Seen by Provider: 00:30 Patient was resting in his recliner with his comforter over him. Patient stated he was very tired, however he did participate with therapy. Objective Patient answered yes/no questions with 70% given minimal cues. Patient answered general info questions with 50% using verbal answers with mod cues. Assessment Assessment Current Status: Regressing, Fair Progress Treatment Plan Continue Plan of Care Speech Short Term Goals Short Term Goals Short Term Goals 1) The patient will complete memory exercises with minimal cues at 90% or greater. 2) The patient will complete confrontational naming exercises with minimal cues at 90% or greater. Speech Volumetric Weigher Goals Volumetric Weigher Goals Patient will improve expressive communication to meet wants/needs. Speech-Plan Patient/Family Goals Patient/Family Goals: Patient will return to his home where he lives with his . Patient will be most likely be placed on hospice. Treatment Plan Speech Therapy Treatment Plan: Continue Plan of Care Patient becomes very emotional and states he doesn't have long to live. He hopes to return home soon to be with family. Treatment Duration: Oct 31, 2020 Frequency: 4 times per week (Patient will receive skilled ST 4-5x per week) Estimated Hrs Per Day: .5 hour per day Rehab Potential: Fair Barriers to Learning: Patient's medical status Pt/Family Agrees to Plan: Yes Safety Risks/Education Teaching Recipient: Patient Teaching Methods: Demonstration, Discussion Response to Teaching: Verbalize Understanding, Return Demonstration Education Topics Provided: Continued safety Time Speech Therapy Time In: 10:30 Speech Therapy Time Out: 11:00 Total Billed Time: 30 Billed Treatment Time 1, SABIHA Gonzalez Oct 25, 2020 13:41
--- NOTE | 2020-10-25 15:59 | Physical Therapy Daily Note ---
PT Daily Note-Current Subjective Pt resting Supine in bed upon arrival. Pt reports being tired. Mental Status Patient Orientation: Person, Confused, Place Transfers SCALE: Activities may be completed with or without assistive devices. 3-Zlljowxpfu-zrwschm completes the activity by him/herself with no assistance from a helper. 5-Set-up or Clean-up Assistance-helper sets up or cleans up; patient completes activity. [place] assists only prior to or following the activity. 4-Supervision or Touching Assistance-helper provides verbal cues and/or touching/steadying and/or contact guard assistance as patient completes activity. Assistance may be provided throughout the activity or intermittently. 3-Partial/Moderate Assistance-helper does LESS THAN HALF the effort. [place] lifts, holds or supports trunk or limbs, but provides less than half the effort. 2-Substantial/Maximal Assistance-helper does MORE THAN HALF the effort. [place] lifts or holds trunk or limbs and provides more than half the effort. 7-Aougmqmce-mhktwf does ALL the effort. Patient does none of the effort to complete the activity. Or, the assistance of 2 or more helpers is required for the patient to complete the activity. If activity was not attempted, code reason: 7-Patient Refused. 9-Not Applicable-not attempted and the patient did not perform the activity before the current illness, exacerbation or injury. 10-Not Attempted due to Environmental Limitations-(lack of equipment, weather restraints, etc.). 88-Not Attempted due to Medical Conditions or Safety Concerns. Weight Bearing Right Lower Extremity: Right Full Weight Bearing Left Lower Extremity: Left Full Weight Bearing Treatments COMMERCIAL RELATIONSHIP MANAGER addressed needs and repositioned. Pt declines needs for BR. All needs met, call light next to pt. Assessment Current Status: Fair Progress Pt very drowsy during tx. Asked to rest. PT Short Term Goals Short Term Goals Time Frame: Oct 21, 2020 Roll Left & Right: 4 Sit to lyin Lying to sitting on side of be: 3 Sit to stand: 3 Chair/rnk-fk-sbrmc transfer: 3 Walk 10 feet: 3 PT Half-Way Goals Half-Way Goals PT Radiology Physician Goals Time Frame: Nov 04, 2020 Roll Left & Right (QC): 4 (SBA) Sit to Lying (QC): 4 (SBA) Lying-Sitting on Side/Bed(QC): 4 (SBA) Sit to Stand (QC): 4 (CGA) Chair/Ery-rp-Yjhod Xfer(QC): 4 (CGA) Toilet Transfer (QC): 4 (CGA) Car Transfer (QC): 4 (CGA) Does the Patient Walk: No and Walking Goal IS indicated Walk 10 feet (QC): 3 (Yue) Walk 50ft with 2 Turns (QC): 3 (Yue) Walk 150 ft (QC): 88 Walking 10ft on Uneven Surface: 88 1 Step (curb) (QC): 88 4 Steps (QC): 88 12 Steps (QC): 88 Picking up an Object (QC): 88 Wheel 50 feet with 2 turns (QC: 6 Wheel 150 feet: 6 PT Plan Problem List Problem List: Activity Tolerance, Functional Strength, Safety, Transfer Treatment/Plan Treatment Plan: Continue Plan of Care Treatment Plan: Bed Mobility, Education, Functional Activity Jerome, Functional Strength, Group Therapy, Gait, Safety, Therapeutic Exercise, Transfers Treatment Duration: Nov 04, 2020 Frequency: At least 5 of 7 days/Wk (IRF) Estimated Hrs Per Day: 1.5 hours per day Patient and/or Family Agrees t: Yes Safety Risks/Education Patient Education: Correct Positioning Teaching Recipient: Patient Teaching Methods: Discussion Response to Teaching: Verbalize Understanding Time/GCodes Time In: 1415 Time Out: 1430 Total Billed Treatment Time: 15 Total Billed Treatment 1, FA (15m) KAITY CANTU PTA Oct 25, 2020 15:59
[2020-10-25 16:52] VITALS: BP 128/73
[2020-10-25] MEDS: amLODIPine 10 MG (NORVASC) TAB PO SCH (20:47)
[2020-10-25] MEDS: ZOLPIDEM 5 MG (AMBIEN) TAB PO SCH (20:47)
[2020-10-25] MEDS: ALPRAZolam 0.25 MG (XANAX) TAB PO PRN (23:50)
[2020-10-26] MEDS: HYDROcodone/APAP 5 MG/325 MG (LORTAB) TAB PO PRN ×2 (00:26→08:58)
[2020-10-26 05:05] VITALS: BP 122/60
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
[2020-10-26] MEDS: ACYCLOVIR 400 MG TABLET (ZOVIRAX) PO SCH ×4 (08:51→20:47)
[2020-10-26] MEDS: TAMSULOSIN 0.4 MG (FLOMAX) CAP PO SCH (08:51)
[2020-10-26] MEDS: MICONAZOLE 2% POWDER (DESENEX AF) 90 GM TOP SCH ×2 (08:51→20:48)
[2020-10-26] MEDS: LEVETIRACETAM 500 MG (KEPPRA) TAB PO SCH ×2 (08:51→20:47)
--- NOTE | 2020-10-26 09:37 | Physical Therapy Daily Note ---
PT Daily Note-Current Subjective Pt laying Supine in bed upon arrival. Pt agrees to PT but reports fatigue as well as pain in R wrist & ankle. Pain Numeric Pain Scale: 4 Location: Right Location Body Site: Wrist Pain Description: Sharp Comment: Reports R wrist & ankle pain with movement Mental Status Patient Orientation: Person, Place, Non-Verbal/Aphasic Transfers SCALE: Activities may be completed with or without assistive devices. 3-Vdeczldtpk-xkrapqn completes the activity by him/herself with no assistance from a helper. 5-Set-up or Clean-up Assistance-helper sets up or cleans up; patient completes activity. [place] assists only prior to or following the activity. 4-Supervision or Touching Assistance-helper provides verbal cues and/or touching/steadying and/or contact guard assistance as patient completes activity. Assistance may be provided throughout the activity or intermittently. 3-Partial/Moderate Assistance-helper does LESS THAN HALF the effort. [place] lifts, holds or supports trunk or limbs, but provides less than half the effort. 2-Substantial/Maximal Assistance-helper does MORE THAN HALF the effort. [place] lifts or holds trunk or limbs and provides more than half the effort. 5-Bxhlkbfeo-rdftqs does ALL the effort. Patient does none of the effort to complete the activity. Or, the assistance of 2 or more helpers is required for the patient to complete the activity. If activity was not attempted, code reason: 7-Patient Refused. 9-Not Applicable-not attempted and the patient did not perform the activity before the current illness, exacerbation or injury. 10-Not Attempted due to Environmental Limitations-(lack of equipment, weather restraints, etc.). 88-Not Attempted due to Medical Conditions or Safety Concerns. Lying to Sitting/Side of Bed(Q: 2 Sit to Stand (QC): 2 Toilet Transfer (QC): 2 Weight Bearing Right Lower Extremity: Right Full Weight Bearing Left Lower Extremity: Left Full Weight Bearing Treatments OT/PT cotreat due to skill of 2 clinicians required which a rehabilitation inspector could not perform in order to coordinate UE/LEs, and due to pt's poor functional mobility, endurance, balance, and strength. OT focused on ADLS, UE placement, and cues for sequencing while PT focused on transfers, standing balance, LE placement, and gross overall movements. Pt laying in bed, transferred supine to sit EOB with assist of RLE and trunk. Pt then completed SPT to w/c to L side (towards stronger side). Pt taken into bathroom, transferring to AZ on pt's L side. Pt completed shower at AZ. During shower pt indicates he is having a bowel movement. Pt required assist x2 to stand at GBs to perform hygiene and wash buttocks, and to change soiled towel pt was sitting on. Pt then sat back down and continued showering. OT assisted pt with donning pants, then assist x2 in stand at GBs to manage pants up, then transfer to w/c. Pt finished dressing at w/c, then brushed teeth at sink. Pt's nurse present to provide pt with pain meds, pt able to take independently. He indicates he needs to go to the toilet, transferring to BSC on L side, Assist x2 to manage pants and perform hygiene, then transfer to w/c on L side. Pt then requests to go to bed, SPT to R side. OT assisted pt with calling dietary in order to change his lunch menu, pt looking forward to having his favorite meal at lunch, having tomato soup. Post tx, pt laying in bed, call light in reach and all needs met. Assessment Current Status: Fair Progress Pt appears to be giving up due to his prognosis. Pt reports new pain in R wrist & ankle. Pt continues to depend on Therapy staff for TF. PT Short Term Goals Short Term Goals Time Frame: Oct 21, 2020 Roll Left & Right: 4 Sit to lyin Lying to sitting on side of be: 3 Sit to stand: 3 Chair/spe-cd-twzcm transfer: 3 Walk 10 feet: 3 PT Rail Walker Goals Residential Goals PT Rail Walker Goals Time Frame: Nov 04, 2020 Roll Left & Right (QC): 4 (SBA) Sit to Lying (QC): 4 (SBA) Lying-Sitting on Side/Bed(QC): 4 (SBA) Sit to Stand (QC): 4 (CGA) Chair/Alj-ro-Lodnn Xfer(QC): 4 (CGA) Toilet Transfer (QC): 4 (CGA) Car Transfer (QC): 4 (CGA) Does the Patient Walk: No and Walking Goal IS indicated Walk 10 feet (QC): 3 (Yue) Walk 50ft with 2 Turns (QC): 3 (Yue) Walk 150 ft (QC): 88 Walking 10ft on Uneven Surface: 88 1 Step (curb) (QC): 88 4 Steps (QC): 88 12 Steps (QC): 88 Picking up an Object (QC): 88 Wheel 50 feet with 2 turns (QC: 6 Wheel 150 feet: 6 PT Plan Problem List Problem List: Activity Tolerance, Functional Strength, Safety, Balance, Gait, Transfer, Bed Mobility Treatment/Plan Treatment Plan: Continue Plan of Care Treatment Plan: Bed Mobility, Education, Functional Activity Jerome, Functional Strength, Group Therapy, Gait, Safety, Therapeutic Exercise, Transfers Treatment Duration: Nov 04, 2020 Frequency: At least 5 of 7 days/Wk (IRF) Estimated Hrs Per Day: 1.5 hours per day Patient and/or Family Agrees t: Yes Safety Risks/Education Patient Education: Transfer Techniques, Correct Positioning, Safety Issues Teaching Recipient: Patient Teaching Methods: Discussion Response to Teaching: Reinforcement Needed Time/GCodes Time In: 815 Time Out: 930 Total Billed Treatment Time: 75 Total Billed Treatment 1, FA x5 (75m) Co-treat w/OT for 75m ALONDRARICHARDKAITYRICKIE SCHULZ Oct 26, 2020 09:36
[2020-10-26] MEDS: DOCUSATE SODIUM 100 MG (COLACE) CAP PO SCH ×2 (09:54→19:47)
[2020-10-26] MEDS: SENNA W/DOCUSATE (SENOKOT S) TABLET PO SCH ×2 (09:55→19:51)
[2020-10-26] MEDS: polyethylene glycoL POWDER 17 GM (MIRALAX) PACK PO SCH ×2 (09:55→19:48)
--- NOTE | 2020-10-26 10:56 | NUR ---
Cardiology Tech responded to referral. Pt is Voodoo but states that it has not been an important factor in his life. 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 Pt was slow to respond. It seemed difficult for him to either find his words or speak them out. He did ask the purpose of the visit. This gave the fashion artist greater opportunity to educate on the role of spiritual care in the Rehab process. Unless the pt is discharged soon we can continue to build a trusting relationship in future visits. Pt stated that his as been a rock for him and there are pictures of Dtr and Gdtr. Cardiology Tech offered blessing.
--- NOTE | 2020-10-26 10:57 | Occupational Ther Daily Note ---
OT Current Status-Daily Note Subjective Pt agreeable to OT/PT cotreat, rates 4/10 pain in R wrist with any movement, also indicates some pain in R ankle. Mental Status/Objective Patient Orientation: Person, Place, Time, Situation ADL-Treatment Therapy Code Descriptions/Definitions Functional [place] Measure: 0=Not Assessed/NA 4=Minimal Assistance 1=Total Assistance 5=Supervision or Setup 2=Maximal Assistance 6=Modified [place] 3=Moderate Assistance 7=Complete IndependenceSCALE: Activities may be completed with or without assistive devices. 9-Jxqdbgbwdz-smnhztx completes the activity by him/herself with no assistance from a helper. 5-Set-up or Clean-up Assistance-helper sets up or cleans up; patient completes activity. [place] assists only prior to or following the activity. 4-Supervision or Touching Assistance-helper provides verbal cues and/or touching/steadying and/or contact guard assistance as patient completes activity. Assistance may be provided throughout the activity or intermittently. 3-Partial/Moderate Assistance-helper does LESS THAN HALF the effort. [place] lifts, holds or supports trunk or limbs, but provides less than half the effort. 2-Substantial/Maximal Assistance-helper does MORE THAN HALF the effort. [place] lifts or holds trunk or limbs and provides more than half the effort. 7-Npjgngyuy-jkyctg does ALL the effort. Patient does none of the effort to complete the activity. Or, the assistance of 2 or more helpers is required for the patient to complete the activity. If activity was not attempted, code reason: 7-Patient Refused. 9-Not Applicable-not attempted and the patient did not perform the activity before the current illness, exacerbation or injury. 10-Not Attempted due to Environmental Limitations-(lack of equipment, weather restraints, etc.). 88-Not Attempted due to Medical Conditions or Safety Concerns. Oral Hygiene (QC): 5 (set up at sink) Shower/Bathe Self (QC): 1 (Pt able to wash UEs, chest, periarea and abdomen. Assist x2 in stand at GBs, OT washed/dried buttocks, and BLEs. Assist to wash wyatt ir with baby shampoo.) Upper Body Dressing (QC): 3 (Mod A, Assist to thread RUE, and assist over head, ) Lower Body Dressing (QC): 1 (Assist x2 in stand, OT threaded RLE, held pants open and pt able to thread LLE, OT performed pant hike) On/Off Footwear: 2 (Max A, Pt able to doff socks after OT crossed leg in figure 4 method. Pt required hand over hand assist doffing L sock. ) Toileting Hygiene (QC): 1 (Pt had BM in shower, assist x2 in order to complete hyigene.) Other Treatment OT/PT cotreat due to skill of 2 clinicians required which a rehabilitation services counselor could not perform in order to coordinate UE/LEs, and due to pt's poor functional mobility, endurance, balance, and strength. OT focused on ADLS, UE placement, and cues for sequencing while PT focused on transfers, standing balance, LE placement, and gross overall movements. Pt laying in bed, transferred supine to sit EOB with assist of RLE and trunk. Pt then completed SPT to w/c to L side (towards stronger side). Pt taken into bathroom, transferring to IN on pt's L side. Pt completed shower at IN. During shower pt indicates he is having a bowel movement. Pt required assist x2 to stand at GBs to perform hygiene and wash buttocks, and to change soiled towel pt was sitting on. Pt then sat back down and continued showering. OT assisted pt with donning pants, then assist x2 in stand at GBs to manage pants up, then transfer to w/c. Pt finished dressing at w/c, then brushed teeth at sink. Pt's nurse present to provide pt with pain meds, pt able to take independently. He indicates he needs to go to the toilet, transferring to BSC on L side, Assist x2 to manage pants and perform hygiene, then transfer to w/c on L side. Pt then requests to go to bed, SPT to R side. OT assisted pt with calling dietary in order to change his lunch menu, pt looking forward to having his favorite meal at lunch, having tomato soup. Post tx, pt laying in bed, call light in reach and all needs met. Education OT Patient Education: Correct positioning, Modified ADL techniques, Progress toward Goal/Update tx plan, Purpose of tx/functional activities Teaching Recipient: Patient Teaching Methods: Discussion Response to Teaching: Verbalize Understanding OT Short Term Goals Short Term Goals Toileting hygiene: 3 Shower/bathe self: 4 Lower body dressin Putting on/taking off footwear: 3 OT Assisted Goals Pre Press Operator Goals Time Frame: Nov 05, 2020 Eating (QC): 6 Oral Hygiene (QC): 6 Toileting Hygiene (QC): 6 Shower/Bathe Self (QC): 5 Upper Body Dressing (QC): 6 Lower Body Dressing (QC): 3 On/Off Footwear (QC): 5 Additional Goals: 1-Demonstrate ADL Tasks, 2-Verbalize Understanding, 3- ImproveStrength/[place] 1=Demonstrate adherence to instructed precautions during ADL tasks. 2=Patient will verbalize/demonstrate understanding of assistive devices/modifications for ADL. 3=Patient will improve strength/tolerance for activity to enable patient to perform ADL's. OT Education/Plan Problem List/Assessment Assessment: Decreased Activ Tolerance, Decreased UE Strength, Impaired Bed Mobility, Impaired Funct Balance, Impaired I ADL's, Impaired Self-Care Skills, Restricted Funct UE ROM Discharge Recommendations Plan/Recommendations: Continue POC Treatment Plan/Plan of Care Patient would benefit from OT for education, treatment and training to promote independence in ADL's, mobility, safety and/or upper extremity function for ADL's. Plan of Care: ADL Retraining, Caregiver Training, Concurrent Therapy, Functional Mobility, Group Exercise/Act as Ind, UE Funct Exercise/Act, UE Neuromus Re-Ed/Coord, W/C Management Training Treatment Duration: Nov 05, 2020 Frequency: At least 5 of 7 days/Wk (IRF) Estimated Hrs Per Day: 1.5 hours per day Agreement: Yes Rehab Potential: Fair Time/GCodes Start Time: 08:15 Stop Time: 09:30 Total Time Billed (hr/min): 75 Billed Treatment Time cotreat x75' 1, ADL 5 ALBERTO VALENCIA OT Oct 26, 2020 10:57
--- NOTE | 2020-10-26 14:40 | NUR ---
CM/SS PATIENT CARE CONFERENCE Reviewed Summary with patient's spouse Nila Howell to confirm their discussions and plans. Patient has been communicating with therapy team that he will be going to a nursing facility from [facility] and they noted he has been less motivated regarding participation. He received a call from a physician Alan Mccarthy, he was reportedly told he had an aggressive glioblastoma and life expectancy was weeks to approx 3 months. Per Nila, patient does not want chemotherapy or radiation. Nila was exposed to Covid 3 full days when their daughter and grandchildren stayed at their house for . Therefore, she will be unable to come for family education/training with patient. Nila states she and patient as well as children have all discussed this next chapter. They have selected [facility], automobile and property underwriter will complete a referral. [facility] discharge is Friday, October 01, 2021.
--- NOTE | 2020-10-26 14:45 | NUR ---
Patient Care Conference Discussed care team conference summary with patient. It was reported in team conference that patient verbalized readiness to discharge and that he would be going to a shelter facility. Upon further discussion with patient, he did confirm that he and his have had discussions via telephone and he would like to go to [facility] when discharged from the inpatient rehab unit. It was also discussed in team conference that patient's spouse could attend family education/training to discuss/confirm discharge planning and observe patient's level of function in order to confirm need for shelter placement. Patient stated his is "his rock" and the "sooner he could see her, the better." This fiction writer informed patient that Dali, social media editor, would be calling his to make arrangements. Patient appeared tearful and emotional when discussing discharge. He was informed of team's recommendation for discharge next 11/01/2020. At first patient stated, "that was sooner than I expected." After further discussion, the patient stated discharge on 11/01/2020 would be "fine" and that "this place is torture" but did not elaborate further on this statement. Patient had no further questions.
--- NOTE | 2020-10-26 15:20 | NUR ---
CM/SS CONCURRENT DOCUMENTATION [facility] Await confirmation of acceptance/denial.
--- NOTE | 2020-10-26 15:34 | Speech Therapy Daily Note ---
Speech Daily Progress Note Subjective Date Seen by Provider: Oct 26, 2020 Time Seen by Provider: 00:30 Patient was laying back in his recliner, taking a nap when I entered his room. Patient appears to be very depressed. Objective Patient completed a series of simple questions related to his daily needs with 70% given moderate cuing. Patient requires max encouragement throughout the session to participate. Assessment Assessment Current Status: Fair Progress Treatment Plan Continue Plan of Care Speech Short Term Goals Short Term Goals Short Term Goals 1) The patient will complete memory exercises with minimal cues at 90% or greater. 2) The patient will complete confrontational naming exercises with minimal cues at 90% or greater. Speech Mcc Goals Mcc Goals Patient will improve expressive communication to meet wants/needs. Speech-Plan Patient/Family Goals Patient/Family Goals: Patient is scheduled to be discharged on 11/01/2020. Treatment Plan Speech Therapy Treatment Plan: Continue Plan of Care Treatment Duration: Oct 31, 2020 Frequency: 4 times per week (Patient will receive skilled ST 4-5x per week) Estimated Hrs Per Day: .5 hour per day Rehab Potential: Fair Barriers to Learning: Patient's brain surgery and cancer dx Pt/Family Agrees to Plan: Yes Safety Risks/Education Teaching Recipient: Patient Teaching Methods: Discussion Response to Teaching: Verbalize Understanding, Reinforcement Needed Education Topics Provided: Continued safety in his room Time Speech Therapy Time In: 13:30 Speech Therapy Time Out: 14:00 Total Billed Time: 30 Billed Treatment Time [address] Oct 26, 2020 15:34
--- NOTE | 2020-10-26 17:52 | NUR ---
ASKED PT IF HIS GLASSES HAD BEEN FOUND ? PT STATES, YES, ASKED HIM WHERE THEY WERE FOUND AT ? PT STATED THAT HE DIDN'T KNOW, STATES ONE PAIR IS [facility]. NOTED 2 PAIRS OF GLASSES NOW ON OVERBED TABLE.
[2020-10-26 17:54] VITALS: BP 124/72
[2020-10-26] MEDS: ZOLPIDEM 5 MG (AMBIEN) TAB PO SCH (20:47)
[2020-10-26] MEDS: amLODIPine 10 MG (NORVASC) TAB PO SCH (20:47)
[2020-10-27] MEDS: ALPRAZolam 0.25 MG (XANAX) TAB PO PRN ×2 (01:25→16:22)
[2020-10-27 06:00] VITALS: BP 138/75
[2020-10-27] MEDS: DOCUSATE SODIUM 100 MG (COLACE) CAP PO SCH ×2 (06:33→19:38)
[2020-10-27] MEDS: SENNA W/DOCUSATE (SENOKOT S) TABLET PO SCH ×2 (06:34→19:39)
[2020-10-27] MEDS: polyethylene glycoL POWDER 17 GM (MIRALAX) PACK PO SCH ×2 (06:34→19:39)
[2020-10-27] MEDS: ACYCLOVIR 400 MG TABLET (ZOVIRAX) PO SCH ×4 (07:35→20:11)
[2020-10-27] MEDS: TAMSULOSIN 0.4 MG (FLOMAX) CAP PO SCH (07:36)
[2020-10-27] MEDS: MICONAZOLE 2% POWDER (DESENEX AF) 90 GM TOP SCH ×2 (07:36→20:11)
[2020-10-27] MEDS: HYDROcodone/APAP 5 MG/325 MG (LORTAB) TAB PO PRN ×2 (07:36→16:22)
[2020-10-27] MEDS: LEVETIRACETAM 500 MG (KEPPRA) TAB PO SCH ×2 (07:36→20:11)
--- NOTE | 2020-10-27 09:32 | Physical Therapy Daily Note ---
PT Daily Note-Current Subjective Pt laying Supine in bed upon arrival. Pt agrees to PT/Ot co-treat. Pt reports not sleeping well last night and pain in R wrist & ankle. Mental Status Patient Orientation: Person, Place Transfers SCALE: Activities may be completed with or without assistive devices. 6-Wpacsjakjj-qeaiyra completes the activity by him/herself with no assistance from a helper. 5-Set-up or Clean-up Assistance-helper sets up or cleans up; patient completes activity. [place] assists only prior to or following the activity. 4-Supervision or Touching Assistance-helper provides verbal cues and/or touching/steadying and/or contact guard assistance as patient completes activity. Assistance may be provided throughout the activity or intermittently. 3-Partial/Moderate Assistance-helper does LESS THAN HALF the effort. [place] lifts, holds or supports trunk or limbs, but provides less than half the effort. 2-Substantial/Maximal Assistance-helper does MORE THAN HALF the effort. [place] lifts or holds trunk or limbs and provides more than half the effort. 2-Kogdkbyqn-maqpfs does ALL the effort. Patient does none of the effort to complete the activity. Or, the assistance of 2 or more helpers is required for the patient to complete the activity. If activity was not attempted, code reason: 7-Patient Refused. 9-Not Applicable-not attempted and the patient did not perform the activity before the current illness, exacerbation or injury. 10-Not Attempted due to Environmental Limitations-(lack of equipment, weather restraints, etc.). 88-Not Attempted due to Medical Conditions or Safety Concerns. Lying to Sitting/Side of Bed(Q: 2 Sit to Stand (QC): 2 Weight Bearing Right Lower Extremity: Right Full Weight Bearing Left Lower Extremity: Left Full Weight Bearing Wheelchair Training Does the Pt Use a Wheelchair?: Yes Wheel 50 ft with 2 turns (QC): 4 Wheel 150 ft (QC): 4 Type of Wheelchair: Manual Treatments Skill of 2 clinicians needed that Kiln Furniture Caster could not perform due to lack of balance, strength, increased fatigue & decreased muscle control. Pt focused on gross body movements, transfers, standing and WCH mobility while OT focused on ADLs and hand placement during mobility. Pt TF from Supine to EOB then SPT to WCH. OT dons pants for pt as transfer is completed. Pt is wheeled to for brushing teeth and asked to use urinal. As pt uses urinal, pt has BM. PT & OT assist with cleanup of pt & doff/don of clothes. Pt propels WCH in hallway and to Therapy Gym. Pt takes RB before asking to leave floor for change of scenery. Pt propels WCH to elevator and on main floor of hospital to focus on independence of WCH mobility and activity tolerance. Pt returns to ARU then room to rest in bed. Pt is repositioned Supine in bed to comfort with all needs met, call light in hand. Assessment Current Status: Fair Progress Pt teary throughout tx. Voices how humiliating it is to have to have help especially with toileting and cleanup. Pt continues to demonstrate trying while working with Therapists but overall depressed mood. PT Short Term Goals Short Term Goals Time Frame: Oct 21, 2020 Roll Left & Right: 4 Sit to lyin Lying to sitting on side of be: 3 Sit to stand: 3 Chair/kxa-rr-jiang transfer: 3 Walk 10 feet: 3 PT Mold Mover Goals Mold Mover Goals PT Mold Mover Goals Time Frame: Nov 04, 2020 Roll Left & Right (QC): 4 (SBA) Sit to Lying (QC): 4 (SBA) Lying-Sitting on Side/Bed(QC): 4 (SBA) Sit to Stand (QC): 4 (CGA) Chair/Vpc-jp-Idwrs Xfer(QC): 4 (CGA) Toilet Transfer (QC): 4 (CGA) Car Transfer (QC): 4 (CGA) Does the Patient Walk: No and Walking Goal IS indicated Walk 10 feet (QC): 3 (Yue) Walk 50ft with 2 Turns (QC): 3 (Yue) Walk 150 ft (QC): 88 Walking 10ft on Uneven Surface: 88 1 Step (curb) (QC): 88 4 Steps (QC): 88 12 Steps (QC): 88 Picking up an Object (QC): 88 Wheel 50 feet with 2 turns (QC: 6 Wheel 150 feet: 6 PT Plan Problem List Problem List: Activity Tolerance, Functional Strength, Safety, Balance, Gait, Transfer, Bed Mobility Treatment/Plan Treatment Plan: Continue Plan of Care Treatment Plan: Bed Mobility, Education, Functional Activity Jerome, Functional Strength, Group Therapy, Gait, Safety, Therapeutic Exercise, Transfers Treatment Duration: Nov 04, 2020 Frequency: At least 5 of 7 days/Wk (IRF) Estimated Hrs Per Day: 1.5 hours per day Patient and/or Family Agrees t: Yes Safety Risks/Education Patient Education: Transfer Techniques, Correct Positioning, W/C Management, Safety Issues Teaching Recipient: Patient Teaching Methods: Discussion Response to Teaching: Reinforcement Needed Time/GCodes Time In: 815 Time Out: 930 Total Billed Treatment Time: 75 Total Billed Treatment 1, FA x5 (75m) Co-treat w/OT for 75m KAITY CANTU KNITTING MACHINE FIXER HEAD Oct 27, 2020 09:32
--- NOTE | 2020-10-27 09:39 | Occupational Ther Daily Note ---
OT Current Status-Daily Note Subjective Pt agreeable to therapy, 5/10 pain in R wrist and R ankle. Pt emotional and tearful throughout tx. ADL-Treatment Therapy Code Descriptions/Definitions Functional [place] Measure: 0=Not Assessed/NA 4=Minimal Assistance 1=Total Assistance 5=Supervision or Setup 2=Maximal Assistance 6=Modified [place] 3=Moderate Assistance 7=Complete IndependenceSCALE: Activities may be completed with or without assistive devices. 3-Whowelptdj-jovtkvh completes the activity by him/herself with no assistance from a helper. 5-Set-up or Clean-up Assistance-helper sets up or cleans up; patient completes activity. [place] assists only prior to or following the activity. 4-Supervision or Touching Assistance-helper provides verbal cues and/or touching/steadying and/or contact guard assistance as patient completes activity. Assistance may be provided throughout the activity or intermittently. 3-Partial/Moderate Assistance-helper does LESS THAN HALF the effort. [place] lifts, holds or supports trunk or limbs, but provides less than half the effort. 2-Substantial/Maximal Assistance-helper does MORE THAN HALF the effort. [place] lifts or holds trunk or limbs and provides more than half the effort. 1-Gbnkyoygj-hxcsby does ALL the effort. Patient does none of the effort to complete the activity. Or, the assistance of 2 or more helpers is required for the patient to complete the activity. If activity was not attempted, code reason: 7-Patient Refused. 9-Not Applicable-not attempted and the patient did not perform the activity before the current illness, exacerbation or injury. 10-Not Attempted due to Environmental Limitations-(lack of equipment, weather restraints, etc.). 88-Not Attempted due to Medical Conditions or Safety Concerns. Oral Hygiene (QC): 5 Lower Body Dressing (QC): 1 (Assist x2 in stand. OT threaded RLE, pt able to thread L as OT held pant leg open, OT performed pant hike.) On/Off Footwear: 1 (Assist to doff/don gripper socks.) Toileting Hygiene (QC): 1 (Assist x2 in stand to use urinal, pt then indicates he is having a BM in stand, assist to change clothing and perform hygiene.) Other Treatment OT/PT cotreat due to skill of 2 clinicians required which a cardiac rehab nurse could not perform in order to coordinate UE/LEs, and due to pt's poor functional mobility, endurance, balance, and strength. OT focused on ADLS, UE placement, and cues for sequencing while PT focused on transfers, standing balance, LE placement, and gross overall movements. Pt transferred supine to sit EOB, assist with trunk and LLE, OT assisted pt with positioning of R wrist in neutral during transfers due to pain. Pt donned pants at EOB, assist with threading LEs, and assist x2 in stand for pant hike. SPT to w/c on L side (strong side). Pt taken into the bath room to brush teeth at sink with set up assistance. Pt then indicates he needs to urinate, urging therapists to hurry. Pt stood with PT as OT assisted with clothing and urinal placement. Pt able to urinate, but then indicates he is having a bowel movement as he is urinating. Assist x2 in stand for hygiene post BM. Pt then sat in w/c, assist to change lower body clothing, and socks. OT cleaned up BM from pt's clothing and the floor. Pt's clothes placed in the wash for pt, hospital gown donned. Pt then propelled w/c into therapy gym with min A. Pt took a rest break. Pt then taken down stair, outside, and around 1st floor in order to increase independence with w/c mobility and community mobility. Pt tearful while looking outside stating "I miss my past life". OT/PT attempted to comfort pt. Pt then brought back to his room, transferring to bed via SPT. assist with BLEs sit to supine. Post Tx, pt laying in bed, call light in reach and all needs met. Education OT Patient Education: Correct positioning, Energy conservation, Modified ADL techniques, Progress toward Goal/Update tx plan, Purpose of tx/functional activities, W/C management Teaching Recipient: Patient Teaching Methods: Discussion Response to Teaching: Verbalize Understanding OT Short Term Goals Short Term Goals Toileting hygiene: 3 Shower/bathe self: 4 Lower body dressin Putting on/taking off footwear: 3 OT Group Home Goals Certified Dietary Manager Goals Time Frame: Nov 05, 2020 Eating (QC): 6 Oral Hygiene (QC): 6 Toileting Hygiene (QC): 6 Shower/Bathe Self (QC): 5 Upper Body Dressing (QC): 6 Lower Body Dressing (QC): 3 On/Off Footwear (QC): 5 Additional Goals: 1-Demonstrate ADL Tasks, 2-Verbalize Understanding, 3- ImproveStrength/Jerome 1=Demonstrate adherence to instructed precautions during ADL tasks. 2=Patient will verbalize/demonstrate understanding of assistive devices/modifications for ADL. 3=Patient will improve strength/tolerance for activity to enable patient to perform ADL's. OT Education/Plan Problem List/Assessment Assessment: Decreased Activ Tolerance, Decreased UE Strength, Impaired Funct Balance, Impaired I ADL's, Impaired Self-Care Skills, Restricted Funct UE ROM Discharge Recommendations Plan/Recommendations: Continue POC Treatment Plan/Plan of Care Patient would benefit from OT for education, treatment and training to promote independence in ADL's, mobility, safety and/or upper extremity function for ADL's. Plan of Care: ADL Retraining, Caregiver Training, Concurrent Therapy, Functional Mobility, Group Exercise/Act as Ind, UE Funct Exercise/Act, UE Neuromus Re-Ed/Coord, W/C Management Training Treatment Duration: Nov 05, 2020 Frequency: At least 5 of 7 days/Wk (IRF) Estimated Hrs Per Day: 1.5 hours per day Agreement: Yes Rehab Potential: Fair Time/GCodes Start Time: 08:15 Stop Time: 09:30 Total Time Billed (hr/min): 75 Billed Treatment Time cotreat x75' 1, ADL 4 (60'), FA (15') ALBERTO VALENCIA OT Oct 27, 2020 09:39
--- NOTE | 2020-10-27 11:14 | NUR ---
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 His response was minimal.
--- NOTE | 2020-10-27 11:55 | Speech Therapy Daily Note ---
Speech Daily Progress Note Subjective Date Seen by Provider: Oct 27, 2020 Time Seen by Provider: 00:30 Patient was resting in his bed following his PT amd OT session. Objective Patient completed a series of general information questions with 85% accuracy given minimal cues and/or repetitions. Assessment Assessment Current Status: Good Progress Treatment Plan Continue Plan of Care Speech Short Term Goals Short Term Goals Short Term Goals 1) The patient will complete memory exercises with minimal cues at 90% or greater. 2) The patient will complete confrontational naming exercises with minimal cues at 90% or greater. Speech Jail Goals Community Artist Goals Patient will improve expressive communication to meet wants/needs. Speech-Plan Patient/Family Goals Patient/Family Goals: Patient is scheduled to discharge to SNF next week. Treatment Plan Speech Therapy Treatment Plan: Continue Plan of Care Treatment Duration: Oct 31, 2020 Frequency: 4 times per week (Patient will receive skilled ST 4-5x per week) Estimated Hrs Per Day: .5 hour per day Rehab Potential: Fair Barriers to Learning: Patient's brain surgery and ongoing cancer dx. Pt/Family Agrees to Plan: Yes Safety Risks/Education Teaching Recipient: Patient Teaching Methods: Demonstration, Discussion Response to Teaching: Verbalize Understanding, Return Demonstration Education Topics Provided: Continued safety and communication Time Speech Therapy Time In: 10:00 Speech Therapy Time Out: 10:30 Total Billed Time: 30 Billed Treatment Time [address] Oct 27, 2020 11:55
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
--- NOTE | 2020-10-27 15:00 | NUR ---
CLEANSED SCALP INCISIONAL AREA WITH BABY SHAMPOO AND STERILE WATER AND GAUZE. SMALL AMT. DRIED BLOOD REMOVED.
[2020-10-27 17:43] VITALS: BP 130/80
[2020-10-27] MEDS: amLODIPine 10 MG (NORVASC) TAB PO SCH (20:11)
[2020-10-27] MEDS: ZOLPIDEM 5 MG (AMBIEN) TAB PO SCH (20:11)
[2020-10-27] MEDS: MIRTAZAPINE 15 MG (REMERON) TAB PO SCH (20:11)
[2020-10-28 05:29] VITALS: BP 123/71
[2020-10-28] MEDS: TAMSULOSIN 0.4 MG (FLOMAX) CAP PO SCH (08:32)
[2020-10-28] MEDS: DOCUSATE SODIUM 100 MG (COLACE) CAP PO SCH ×2 (08:32→21:10)
[2020-10-28] MEDS: LEVETIRACETAM 500 MG (KEPPRA) TAB PO SCH ×2 (08:32→21:11)
[2020-10-28] MEDS: ACYCLOVIR 400 MG TABLET (ZOVIRAX) PO SCH ×4 (08:32→21:11)
[2020-10-28] MEDS: polyethylene glycoL POWDER 17 GM (MIRALAX) PACK PO SCH ×2 (08:33→21:11)
[2020-10-28] MEDS: SENNA W/DOCUSATE (SENOKOT S) TABLET PO SCH ×2 (08:33→21:10)
[2020-10-28] MEDS: MICONAZOLE 2% POWDER (DESENEX AF) 90 GM TOP SCH ×2 (08:38→21:19)
--- NOTE | 2020-10-28 09:00 | NUR ---
MORE CONFUSED AND SLOWER TO RESPOND TODAY. DOES REMEMBER THIS RN'S NAME FROM LAST WEEK THOUGH. STATES, FEELS "DISORIENTED". SAD AND DEPRESSED. DOESN'T WANT TO DO THERAPY... BUT WILL TAKE A SHOWER.
--- NOTE | 2020-10-28 10:21 | Occupational Ther Daily Note ---
OT Current Status-Daily Note Subjective Pt initially declined therapy, but after education on purpose and benefit of therapy he agreed to showering. Pt withdrawn throughout tx, barely talking and when he did talk it was at a whisper. Pt unable to communicate if the water was too cold/hot, instead screamed as if he was in pain. He had difficulty keeping his eyes open during session. After shower, pt declined continued therapy, preferring to go back to bed. ADL-Treatment Therapy Code Descriptions/Definitions Functional [place] Measure: 0=Not Assessed/NA 4=Minimal Assistance 1=Total Assistance 5=Supervision or Setup 2=Maximal Assistance 6=Modified [place] 3=Moderate Assistance 7=Complete IndependenceSCALE: Activities may be completed with or without assistive devices. 8-Kdsrpnwabh-gkpnknh completes the activity by him/herself with no assistance from a helper. 5-Set-up or Clean-up Assistance-helper sets up or cleans up; patient completes activity. [place] assists only prior to or following the activity. 4-Supervision or Touching Assistance-helper provides verbal cues and/or touching/steadying and/or contact guard assistance as patient completes activity. Assistance may be provided throughout the activity or intermittently. 3-Partial/Moderate Assistance-helper does LESS THAN HALF the effort. [place] lifts, holds or supports trunk or limbs, but provides less than half the effort. 2-Substantial/Maximal Assistance-helper does MORE THAN HALF the effort. [place] lifts or holds trunk or limbs and provides more than half the effort. 4-Xzanqkaxi-oyiuti does ALL the effort. Patient does none of the effort to compl ete the activity. Or, the assistance of 2 or more helpers is required for the patient to complete the activity. If activity was not attempted, code reason: 7-Patient Refused. 9-Not Applicable-not attempted and the patient did not perform the activity before the current illness, exacerbation or injury. 10-Not Attempted due to Environmental Limitations-(lack of equipment, weather restraints, etc.). 88-Not Attempted due to Medical Conditions or Safety Concerns. Oral Hygiene (QC): 5 Shower/Bathe Self (QC): 1 Lower Body Dressing (QC): 1 On/Off Footwear: 1 Toileting Hygiene (QC): 1 Toilet Transfer (QC): 1 Other Treatment OT/PT cotreat due to skill of 2 clinicians required which a rehab aid could not perform in order to coordinate UE/LEs, and due to pt's poor functional mobility, endurance, balance, and strength. OT focused on ADLS, UE placement, and cues for sequencing while PT focused on transfers, standing balance, LE placement, and gross overall movements. Pt laying in bed, transferred supine to sit EOB with assist of RLE and trunk. Pt then completed SPT to w/c to L side (towards stronger side), to [facility]. Pt attempted to complete toileting but did not have success. Pt transferred to w/c, then taken into bathroom, transferring to CT on pt's L side. Pt completed shower at CT. Pt required assist x2 to stand at [facility] to perform hygiene and wash buttocks. OT assisted pt with donning pants, then assist x2 in stand at [facility] to manage pants up, then transfer to w/c. Pt brushed teeth at sink. Pt declines further therapy, although OT/PT educate pt on purpose and benefit of therapy. Pt requests to go to bed, SPT to R side. Post tx, pt laying in bed, call light in reach and all needs met. Education OT Patient Education: Correct positioning, Modified ADL techniques, Progress toward Goal/Update tx plan, Purpose of tx/functional activities, Rehab process OT Short Term Goals Short Term Goals Toileting hygiene: 3 Shower/bathe self: 4 Lower body dressin Putting on/taking off footwear: 3 OT Usp Goals Primary Products Inspectors Goals Time Frame: Nov 05, 2020 Eating (QC): 6 Oral Hygiene (QC): 6 Toileting Hygiene (QC): 6 Shower/Bathe Self (QC): 5 Upper Body Dressing (QC): 6 Lower Body Dressing (QC): 3 On/Off Footwear (QC): 5 Additional Goals: 1-Demonstrate ADL Tasks, 2-Verbalize Understanding, 3- ImproveStrength/Jerome 1=Demonstrate adherence to instructed precautions during ADL tasks. 2=Patient will verbalize/demonstrate understanding of assistive devices/modifications for ADL. 3=Patient will improve strength/tolerance for activity to enable patient to perform ADL's. OT Education/Plan Problem List/Assessment Assessment: Decreased Activ Tolerance, Decreased UE Strength, Impaired Bed Mobility, Impaired Cognition, Impaired Funct Balance, Impaired I ADL's, Impaired Self-Care Skills, Restricted Funct UE ROM Discharge Recommendations Plan/Recommendations: Continue POC Treatment Plan/Plan of Care Patient would benefit from OT for education, treatment and training to promote independence in ADL's, mobility, safety and/or upper extremity function for ADL's. Plan of Care: ADL Retraining, Caregiver Training, Concurrent Therapy, Functional Mobility, Group Exercise/Act as Ind, UE Funct Exercise/Act, UE Neuromus Re-Ed/Coord, W/C Management Training Treatment Duration: Nov 05, 2020 Frequency: At least 5 of 7 days/Wk (IRF) Estimated Hrs Per Day: 1.5 hours per day Agreement: Yes Rehab Potential: Fair Time/GCodes Start Time: 09:15 Stop Time: 10:05 Total Time Billed (hr/min): 50 Billed Treatment Time 1, ADL 3 (50') ALBERTO VALENCIA OT Oct 28, 2020 10:21
--- NOTE | 2020-10-28 10:34 | Physical Therapy Daily Note ---
PT Daily Note-Current Subjective Pt initially declined therapy, but after education on purpose and benefit of therapy he agreed to showering. Pt withdrawn throughout tx, barely talking and when he did talk it was at a whisper. Pt unable to communicate if the water was too cold/hot, instead screamed as if he was in pain. He had difficulty keeping his eyes open during session. After shower, pt declined continued therapy, preferring to go back to bed. Pain Comment: Pt reported in R wrist & ankle w/movement but not rated Mental Status Patient Orientation: Person, Non-Verbal/Aphasic Transfers SCALE: Activities may be completed with or without assistive devices. 8-Xttynlgoxz-xnwhydi completes the activity by him/herself with no assistance from a helper. 5-Set-up or Clean-up Assistance-helper sets up or cleans up; patient completes activity. [place] assists only prior to or following the activity. 4-Supervision or Touching Assistance-helper provides verbal cues and/or touching/steadying and/or contact guard assistance as patient completes activity. Assistance may be provided throughout the activity or intermittently. 3-Partial/Moderate Assistance-helper does LESS THAN HALF the effort. [place] lifts, holds or supports trunk or limbs, but provides less than half the effort. 2-Substantial/Maximal Assistance-helper does MORE THAN HALF the effort. [place] lifts or holds trunk or limbs and provides more than half the effort. 3-Txvqynrpd-pllbua does ALL the effort. Patient does none of the effort to complete the activity. Or, the assistance of 2 or more helpers is required for the patient to complete the activity. If activity was not attempted, code reason: 7-Patient Refused. 9-Not Applicable-not attempted and the patient did not perform the activity before the current illness, exacerbation or injury. 10-Not Attempted due to Environmental Limitations-(lack of equipment, weather restraints, etc.). 88-Not Attempted due to Medical Conditions or Safety Concerns. Sit to Lying (QC): 2 Lying to Sitting/Side of Bed(Q: 2 Sit to Stand (QC): 1 Chair/Utn-pw-Hxcwu Xfer(QC): 1 Toilet Transfer (QC): 1 Weight Bearing Right Lower Extremity: Right Full Weight Bearing Left Lower Extremity: Left Full Weight Bearing Wheelchair Training Does the Pt Use a Wheelchair?: Yes Type of Wheelchair: Manual Treatments OT/PT cotreat due to skill of 2 clinicians required which a rn rehabilitation could not perform in order to coordinate UE/LEs, and due to pt's poor functional mobility, endurance, balance, and strength. OT focused on ADLS, UE placement, and cues for sequencing while PT focused on transfers, standing balance, LE placement, and gross overall movements. Pt laying in bed, transferred supine to sit EOB with assist of RLE and trunk. Pt then completed SPT to w/c to L side (towards stron karen side), to [facility]. Pt attempted to complete toileting but did not have success. Pt transferred to w/c, then taken into bathroom, transferring to [place] on pt's L side. Pt completed shower at [place]. Pt required assist x2 to stand at [facility] to perform hygiene and wash buttocks. OT assisted pt with donning pants, then assist x2 in stand at [facility] to manage pants up, then transfer to w/c. Pt brushed teeth at sink. Pt then requests to go to bed, SPT to R side. Post tx, pt laying in bed, call light in reach and all needs met. Assessment Current Status: Poor Progress Pt is declining further, requiring more assistance for transfer manuel. on R side. PT Short Term Goals Short Term Goals Time Frame: Oct 21, 2020 Roll Left & Right: 4 Sit to lyin Lying to sitting on side of be: 3 Sit to stand: 3 Chair/ajy-bl-slxas transfer: 3 Walk 10 feet: 3 PT Alf Goals Alf Goals PT Artificial Candy Maker Goals Time Frame: Nov 04, 2020 Roll Left & Right (QC): 4 (SBA) Sit to Lying (QC): 4 (SBA) Lying-Sitting on Side/Bed(QC): 4 (SBA) Sit to Stand (QC): 4 (CGA) Chair/Mzz-pk-Rjbcp Xfer(QC): 4 (CGA) Toilet Transfer (QC): 4 (CGA) Car Transfer (QC): 4 (CGA) Does the Patient Walk: No and Walking Goal IS indicated Walk 10 feet (QC): 3 (Yue) Walk 50ft with 2 Turns (QC): 3 (Yue) Walk 150 ft (QC): 88 Walking 10ft on Uneven Surface: 88 1 Step (curb) (QC): 88 4 Steps (QC): 88 12 Steps (QC): 88 Picking up an Object (QC): 88 Wheel 50 feet with 2 turns (QC: 6 Wheel 150 feet: 6 PT Plan Problem List Problem List: Activity Tolerance, Functional Strength, Safety, Balance, Gait, Transfer, Bed Mobility Treatment/Plan Treatment Plan: Continue Plan of Care Treatment Plan: Bed Mobility, Education, Functional Activity [place], Functional Strength, Group Therapy, Gait, Safety, Therapeutic Exercise, Transfers Treatment Duration: Nov 04, 2020 Frequency: At least 5 of 7 days/Wk (IRF) Estimated Hrs Per Day: 1.5 hours per day Patient and/or Family Agrees t: Yes Safety Risks/Education Patient Education: Transfer Techniques, Correct Positioning, Safety Issues Teaching Recipient: Patient Teaching Methods: Discussion Response to Teaching: Reinforcement Needed Time/GCodes Time In: 915 Time Out: 1005 Total Billed Treatment Time: 50 Total Billed Treatment 1, FA x3 (50m) Co-treat w/OT for 50m KAITY CANTU SORORITY SUPERVISOR Oct 28, 2020 10:34
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
[2020-10-28 17:58] VITALS: BP 129/76
[2020-10-28] MEDS: MIRTAZAPINE 15 MG (REMERON) TAB PO SCH (21:10)
[2020-10-28] MEDS: ZOLPIDEM 5 MG (AMBIEN) TAB PO SCH (21:10)
[2020-10-28] MEDS: DICLOFENAC 1% GEL 100 GM (VOLTAREN) TUBE TOP PRN (21:12)
[2020-10-28] MEDS: amLODIPine 10 MG (NORVASC) TAB PO SCH (21:15)
[2020-10-29 05:33] VITALS: BP 118/69
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
[2020-10-29] MEDS: ACYCLOVIR 400 MG TABLET (ZOVIRAX) PO SCH ×4 (08:55→20:22)
[2020-10-29] MEDS: LEVETIRACETAM 500 MG (KEPPRA) TAB PO SCH ×2 (08:55→20:22)
[2020-10-29] MEDS: TAMSULOSIN 0.4 MG (FLOMAX) CAP PO SCH (08:55)
[2020-10-29] MEDS: SENNA W/DOCUSATE (SENOKOT S) TABLET PO SCH ×2 (08:55→19:38)
[2020-10-29] MEDS: MICONAZOLE 2% POWDER (DESENEX AF) 90 GM TOP SCH ×2 (08:55→20:26)
[2020-10-29] MEDS: DOCUSATE SODIUM 100 MG (COLACE) CAP PO SCH ×2 (08:55→19:37)
[2020-10-29] MEDS: polyethylene glycoL POWDER 17 GM (MIRALAX) PACK PO SCH ×2 (08:56→19:37)
--- NOTE | 2020-10-29 09:00 | NUR ---
REFUSING THERAPY AND EVEN A SHOWER. STATES, "IT'S TOO MUCH WORK". Addendum: 10/29/20 at 1645 by CATALINA SHEPPARD RN DR. ELIZONDO AWARE AND MEDICAL HOLD PLACED ON PATIENT DUE TO FUNCTIONAL DECLINE.
--- NOTE | 2020-10-29 10:20 | Physical Therapy Progress Note ---
Therapy Progress Note Pt refuses Therapy today. Telling Nurse he doesn't even want to shower. Dr Velásquez is placing pt on Medical Hold due to decline seen each day. KAITY CANTU PTA Oct 29, 2020 10:20
[2020-10-29] MEDS: HYDROcodone/APAP 5 MG/325 MG (LORTAB) TAB PO PRN (15:06)
--- NOTE | 2020-10-29 15:11 | NUR ---
REFUSING SOME TURNS. ALLEVYN PLACED ON COCCYX. HENSLEY BOOT TO RIGHT FOOT.
[2020-10-29 17:10] VITALS: BP 122/74
[2020-10-29] MEDS: amLODIPine 10 MG (NORVASC) TAB PO SCH (20:22)
[2020-10-29] MEDS: MIRTAZAPINE 15 MG (REMERON) TAB PO SCH (20:22)
[2020-10-29] MEDS: ZOLPIDEM 5 MG (AMBIEN) TAB PO SCH (20:22)
[2020-10-30] MEDS: ACETAMINOPHEN 325 MG TABLET PO PRN ×2 (04:21→17:42)
[2020-10-30 05:09] VITALS: BP 128/69
[2020-10-30] MEDS: DOCUSATE SODIUM 100 MG (COLACE) CAP PO SCH ×2 (08:11→21:10)
[2020-10-30] MEDS: TAMSULOSIN 0.4 MG (FLOMAX) CAP PO SCH (08:12)
[2020-10-30] MEDS: SENNA W/DOCUSATE (SENOKOT S) TABLET PO SCH ×2 (08:12→21:10)
[2020-10-30] MEDS: ACYCLOVIR 400 MG TABLET (ZOVIRAX) PO SCH ×4 (08:12→21:09)
[2020-10-30] MEDS: HYDROcodone/APAP 5 MG/325 MG (LORTAB) TAB PO PRN ×2 (08:12→14:38)
[2020-10-30] MEDS: LEVETIRACETAM 500 MG (KEPPRA) TAB PO SCH ×2 (08:12→21:09)
[2020-10-30] MEDS: DICLOFENAC 1% GEL 100 GM (VOLTAREN) TUBE TOP PRN (08:13)
[2020-10-30] MEDS: MICONAZOLE 2% POWDER (DESENEX AF) 90 GM TOP SCH ×2 (08:14→21:16)
[2020-10-30] MEDS: polyethylene glycoL POWDER 17 GM (MIRALAX) PACK PO SCH ×2 (08:14→21:10)
--- NOTE | 2020-10-30 09:37 | NUR ---
COUGHING WEAK CROUPY NON-PRODUCTIVE COUGH AT TIMES. TEMP-37.4. ROBITUSSIN DM GIVEN PO FOR COUGH. Addendum: 10/30/20 at 1146 by JONO LI RN ROBITUSSIN AC WAS GIVEN, INSTEAD OF ROBITUSSIN DM
[2020-10-30] MEDS: guaiFENesin/CODEINE (ROBITUSSIN AC) 10ML UDC PO PRN ×2 (09:38→14:38)
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
[2020-10-30 17:34] VITALS: BP 129/71
[2020-10-30] MEDS ORDERED: SENN-20 PO (20:48)
[2020-10-30] MEDS ORDERED: ACHD5005 PO (20:48)
[2020-10-30] MEDS ORDERED: MORP100S3 PO (20:48)
[2020-10-30] MEDS ORDERED: LEVE500T6 PO (20:48)
[2020-10-30] MEDS ORDERED: ACYC400T PO (20:48)
[2020-10-30] MEDS ORDERED: MIRT-47 PO (20:48)
[2020-10-30] MEDS ORDERED: MICO90PO TOP (20:48)
[2020-10-30] MEDS ORDERED: LORA2ORA PO (20:48)
[2020-10-30] MEDS ORDERED: DICL100G18 TOP (20:48)
[2020-10-30] MEDS ORDERED: MELA10TA2 PO (20:48)
[2020-10-30] MEDS ORDERED: ZOLP5TAB7 PO (20:48)
[2020-10-30] MEDS: amLODIPine 10 MG (NORVASC) TAB PO SCH (21:09)
[2020-10-30] MEDS: ZOLPIDEM 5 MG (AMBIEN) TAB PO SCH (21:09)
[2020-10-30] MEDS: MIRTAZAPINE 15 MG (REMERON) TAB PO SCH (21:09)
[2020-10-31 06:15] VITALS: BP 121/71
[2020-10-31] MEDS: SENNA W/DOCUSATE (SENOKOT S) TABLET PO SCH (07:51)
[2020-10-31] MEDS: polyethylene glycoL POWDER 17 GM (MIRALAX) PACK PO SCH (07:51)
[2020-10-31] MEDS: ALPRAZolam 0.25 MG (XANAX) TAB PO PRN (08:05)
[2020-10-31] MEDS: DOCUSATE SODIUM 100 MG (COLACE) CAP PO SCH (08:05)
[2020-10-31] MEDS: LEVETIRACETAM 500 MG (KEPPRA) TAB PO SCH (08:05)
[2020-10-31] MEDS: ACYCLOVIR 400 MG TABLET (ZOVIRAX) PO SCH ×2 (08:05→12:52)
[2020-10-31] MEDS: TAMSULOSIN 0.4 MG (FLOMAX) CAP PO SCH (08:05)
--- NOTE | 2020-10-31 08:59 | Physical Therapy Daily Note ---
PT Daily Note-Current Subjective Patient in bed pre tx, agrees to PT, has no complaints of pain at rest. Will be co-treating with OT due to poor patient mobility, strength, endurance, sitting and standing balance, right hemiparesis, the need to coordinate UE and LE during activity, safety and reduce risk of falls. Appearance Patient in bed post tx with nurse call, phone, tray, all needs met. Mental Status Patient Orientation: Person, Confused, Situation Transfers SCALE: Activities may be completed with or without assistive devices. 8-Gsiufiuzho-jtcyusc completes the activity by him/herself with no assistance from a helper. 5-Set-up or Clean-up Assistance-helper sets up or cleans up; patient completes activity. [place] assists only prior to or following the activity. 4-Supervision or Touching Assistance-helper provides verbal cues and/or touching/steadying and/or contact guard assistance as patient completes activity. Assistance may be provided throughout the activity or intermittently. 3-Partial/Moderate Assistance-helper does LESS THAN HALF the effort. [place] lifts, holds or supports trunk or limbs, but provides less than half the effort. 2-Substantial/Maximal Assistance-helper does MORE THAN HALF the effort. [place] lifts or holds trunk or limbs and provides more than half the effort. 4-Akjvpciqj-pvutih does ALL the effort. Patient does none of the effort to complete the activity. Or, the assistance of 2 or more helpers is required for the patient to complete the activity. If activity was not attempted, code reason: 7-Patient Refused. 9-Not Applicable-not attempted and the patient did not perform the activity before the current illness, exacerbation or injury. 10-Not Attempted due to Environmental Limitations-(lack of equipment, weather restraints, etc.). 88-Not Attempted due to Medical Conditions or Safety Concerns. Roll Left & Right (QC): 2 Sit to Lying (QC): 2 Lying to Sitting/Side of Bed(Q: 2 Sit to Stand (QC): 2 Chair/Pbj-ax-Gjsft Xfer(QC): 2 Toilet Transfer (QC): 2 Car Transfer (QC): 2 Patient performs bed mobility and transfers with max assist, car transfer max assist. Patient sits supine to sit and then stand pivot to WC and taken to shower, stand pivot to shower bench, pants down during the transfer, undress, shower, redress, stand pivot to WC and pants up on the way. Max assist for all transfer, leans to the right side, more with fatigue. After getting back to room patient has had a BM and needs to get cleaned and changed, has to roll several times from side to side for this Weight Bearing Right Lower Extremity: Right Full Weight Bearing Left Lower Extremity: Left Full Weight Bearing Gait Training Walk 10 feet (QC): 88 Walk 50 ft with 2 Turns(QC): 88 Walk 150 ft (QC): 88 Walking 10ft/uneven surface-QC: 88 Wheelchair Training Does the Pt Use a Wheelchair?: Yes Wheel 50 ft with 2 turns (QC): 2 Wheel 150 ft (QC): 2 Type of Wheelchair: Manual Patient can propel a manual WC 150' with max assist, patient assists a little with his left arm and leg but only enough to go forward a few inches at a time. Stair Training 1 Step (curb) (QC): 88 4 Steps (QC): 88 12 Steps (QC): 88 Balance Picking up an Object (QC): 88 Exercises standing in parallel bars x3 for about 1 min each time, leans heavily to the right side Treatments PT performed bed mobility and transfers, WC mobility, standing, balance and safety during shower and dressing, OT performed shower and dressing, cleaning, UE positioning and safety during activity. Assessment Current Status: Poor Progress poor sitting and standing balance PT Short Term Goals Short Term Goals Time Frame: Oct 21, 2020 Roll Left & Right: 4 Sit to lyin Lying to sitting on side of be: 3 Sit to stand: 3 Chair/ltz-oq-mzaxb transfer: 3 Walk 10 feet: 3 PT [facility] Goals Retail Advisor Goals PT [facility] Goals Time Frame: Nov 04, 2020 Roll Left & Right (QC): 4 (SBA) Sit to Lying (QC): 4 (SBA) Lying-Sitting on Side/Bed(QC): 4 (SBA) Sit to Stand (QC): 4 (CGA) Chair/Rme-bg-Vocvu Xfer(QC): 4 (CGA) Toilet Transfer (QC): 4 (CGA) Car Transfer (QC): 4 (CGA) Does the Patient Walk: No and Walking Goal IS indicated Walk 10 feet (QC): 3 (Yue) Walk 50ft with 2 Turns (QC): 3 (Yue) Walk 150 ft (QC): 88 Walking 10ft on Uneven Surface: 88 1 Step (curb) (QC): 88 4 Steps (QC): 88 12 Steps (QC): 88 Picking up an Object (QC): 88 Wheel 50 feet with 2 turns (QC: 6 Wheel 150 feet: 6 PT Plan Problem List Problem List: Activity Tolerance, Functional Strength, Safety, Balance, Gait, Transfer, Bed Mobility, ROM Treatment/Plan Treatment Plan: Continue Plan of Care Treatment Plan: Bed Mobility, Education, Functional Activity [place], Functional Strength, Group Therapy, Gait, Safety, Therapeutic Exercise, Transfers Treatment Duration: Nov 04, 2020 Frequency: At least 5 of 7 days/Wk (IRF) Estimated Hrs Per Day: 1.5 hours per day Patient and/or Family Agrees t: Yes Safety Risks/Education Patient Education: Transfer Techniques, Correct Positioning, W/C Management, Safety Issues Teaching Recipient: Patient Teaching Methods: Demonstration, Discussion Response to Teaching: Reinforcement Needed Time/GCodes Time In: 0800 Time Out: 0900 Total Billed Treatment Time: 60 Total Billed Treatment 1 visit FA 60' co-treated for 60' ALMITA MARTINEZ PT Oct 31, 2020 08:59
--- NOTE | 2020-10-31 09:01 | Occupational Ther Daily Note ---
OT Current Status-Daily Note Subjective Pt laying in bed, agreeable to OT tx. Pt denied having any pain. ADL-Treatment Therapy Code Descriptions/Definitions Functional [place] Measure: 0=Not Assessed/NA 4=Minimal Assistance 1=Total Assistance 5=Supervision or Setup 2=Maximal Assistance 6=Modified [place] 3=Moderate Assistance 7=Complete IndependenceSCALE: Activities may be completed with or without assistive devices. 4-Othbumlmbe-flfzzaa completes the activity by him/herself with no assistance from a helper. 5-Set-up or Clean-up Assistance-helper sets up or cleans up; patient completes activity. [place] assists only prior to or following the activity. 4-Supervision or Touching Assistance-helper provides verbal cues and/or touc emeka/steadying and/or contact guard assistance as patient completes activity. Assistance may be provided throughout the activity or intermittently. 3-Partial/Moderate Assistance-helper does LESS THAN HALF the effort. [place] lifts, holds or supports trunk or limbs, but provides less than half the effort. 2-Substantial/Maximal Assistance-helper does MORE THAN HALF the effort. [place] lifts or holds trunk or limbs and provides more than half the effort. 8-Qiehqlahe-zxoyoo does ALL the effort. Patient does none of the effort to complete the activity. Or, the assistance of 2 or more helpers is required for the patient to complete the activity. If activity was not attempted, code reason: 7-Patient Refused. 9-Not Applicable-not attempted and the patient did not perform the activity before the current illness, exacerbation or injury. 10-Not Attempted due to Environmental Limitations-(lack of equipment, weather restraints, etc.). 88-Not Attempted due to Medical Conditions or Safety Concerns. Eating (QC): 5 (per pt report and clinical judgement, pt requires set up assistance cutting food and opening containers.) Oral Hygiene (QC): 4 (SBA, pt required min cues for sequencing of task.) Bathing Location: L Upper Leg, Chest, Abdomen, Perineal Area Shower/Bathe Self (QC): 1 (Pt able to wash chest/abdomen, and L upper leg. Pt required assistance with all other parts. Assist x2 in stand to wash buttocks. ) Upper Body Dressing (QC): 2 (OT assisted pt with threading RUE, pt threaded LUE, assist overhead and managing down.) Lower Body Dressing (QC): 1 (Assist x2 in stand, pt able to thread LLE as OT held pants open. OT threaded RLE and performed pant hike.) On/Off Footwear: 1 (assist doffing/donning.) Toileting Hygiene (QC): 1 (Assist x2 to roll side to side in bed to perform clothing management and hygiene. ) Other Treatment [id number] OT/PT cotreat due to skill of 2 clinicians required which a homemaking rehabilitation consultant could not perform in order to coordinate UE/LEs, and due to pt's poor functional mobility, endurance, balance, and strength. OT focused on ADLS, UE placement, and cues for sequencing while PT focused on transfers, standing balance, LE placement, and gross overall movements. Pt transferred supine to sit EOB, then SPT to w/c towards pt's L side (stronger side). Pt taken into shower, transferring to SC towards L side. Pt completed showering and dressing, then transferred back to w/c. Pt self-propelled w/c around [facility] common area, then into gym. Pt stood at parallel bars x3. Pt states he had a small BM, taken back to room and transferred to bed. Pt rolled side to side at bed level to perform clothing management and hygiene, assist x2. Post tx, pt laying in bed, call light in reach and all needs met. [id number] OT tx, pt laying in bed. Brushed teeth with SBA, min verbal cues for sequencing. Pt then requests coffee, OT provided pt coffee, setting up to pt's request. Pt then able to grasp cup from table and drink. Post tx, pt laying in bed, call light in reach and all needs met. Education OT Patient Education: Correct positioning, Modified ADL techniques, Progress toward Goal/Update tx plan, Purpose of tx/functional activities, Transfer techniques, W/C management Teaching Recipient: Patient Teaching Methods: Demonstration, Discussion Response to Teaching: Verbalize Understanding, Return Demonstration OT Short Term Goals Short Term Goals Toileting hygiene: 3 Shower/bathe self: 4 Lower body dressin Putting on/taking off footwear: 3 OT Inside Sales Executive Goals Inside Sales Executive Goals Time Frame: Nov 05, 2020 Eating (QC): 6 (not met) Oral Hygiene (QC): 6 (not met) Toileting Hygiene (QC): 6 (notmet) Shower/Bathe Self (QC): 5 (not met) Upper Body Dressing (QC): 6 (not met) Lower Body Dressing (QC): 3 (not met) On/Off Footwear (QC): 5 (not met) Additional Goals: 1-Demonstrate ADL Tasks, 2-Verbalize Understanding, 3- ImproveStrength/[place] 1=Demonstrate adherence to instructed precautions during ADL tasks. 2=Patient will verbalize/demonstrate understanding of assistive devices/modifications for ADL. 3=Patient will improve strength/tolerance for activity to enable patient to perform ADL's. OT Education/Plan Problem List/Assessment Assessment: Decreased Activ Tolerance, Decreased UE Strength, Impaired Bed Mobility, Impaired Coordination, Impaired Funct Balance, Impaired I ADL's, Impaired Self-Care Skills, Restricted Funct UE ROM Discharge Recommendations Plan/Recommendations: Continue POC Treatment Plan/Plan of Care Patient would benefit from OT for education, treatment and training to promote independence in ADL's, mobility, safety and/or upper extremity function for ADL's. Plan of Care: ADL Retraining, Caregiver Training, Concurrent Therapy, Functional Mobility, Group Exercise/Act as Ind, UE Funct Exercise/Act, UE Neuromus Re-Ed/Coord, W/C Management Training Treatment Duration: Nov 05, 2020 Frequency: At least 5 of 7 days/Wk (IRF) Estimated Hrs Per Day: 1.5 hours per day Agreement: Yes Rehab Potential: Fair Time/GCodes Start Time: 08:00 ([id number]) Stop Time: 10:15 ([id number]) Total Time Billed (hr/min): 75 Billed Treatment Time [id number] cotreat [id number] OT tx. 1, ADL 3 (45'), FA (15') 1, ADL (15') ALBERTO VALENCIA OT Oct 31, 2020 09:01
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
--- NOTE | 2020-10-31 09:53 | Speech Therapy Daily Note ---
Speech Daily Progress Note Subjective Date Seen by Provider: Oct 31, 2020 Time Seen by Provider: 00:10 Patient was resting in his bed. He states he is feeling good. Objective Patient completed questions related to himself and his needs with 95% without cues. Assessment Assessment Current Status: Regressing, Fair Progress Speech Short Term Goals Short Term Goals Short Term Goals 1) The patient will complete memory exercises with minimal cues at 90% or greater. 2) The patient will complete confrontational naming exercises with minimal cues at 90% or greater. Speech Metal Solderer Goals Chcf Goals Patient will improve expressive communication to meet wants/needs. Speech-Plan Patient/Family Goals Patient/Family Goals: Patient is discharging to SNF this date. Treatment Plan Speech Therapy Treatment Plan: Discontinue ST Treatment Duration: Oct 31, 2020 Frequency: 4 times per week (Patient will receive skilled ST 4-5x per week) Estimated Hrs Per Day: .5 hour per day Rehab Potential: Fair Barriers to Learning: Patient's illness progression Pt/Family Agrees to Plan: Yes Safety Risks/Education Teaching Recipient: Patient Teaching Methods: Discussion Response to Teaching: Verbalize Understanding Education Topics Provided: Continued safety upon his discharge Time Speech Therapy Time In: 09:40 Speech Therapy Time Out: 09:50 Total Billed Time: 10 Billed Treatment Time 1, SLTS No QUALITY CODES: EXPRESSION OF IDEAS/WANTS: 4 UNDERSTANDING OF CONTENT: 4 REPETITION OF 3 WORDS: 3 BRIEF INTERVIEW: YES TEMPORAL ORIENTATION: YEAR: CORRECT, MONTH: CORRECT, DAY: CORRECT RECALL OF SOCK: YES WITH CUE, COLOR: YES WITH CUE, BED: NO MEMORY/ABILITY: THAT HE IS IN THE HOSPITAL, SABIHA FRANCO Oct 31, 2020 09:53
--- NOTE | 2020-10-31 09:56 | Therapy Team Discharge Summary ---
Therapy Discharge Summary Discharge Recommendations Date of Discharge Occupational Therapy Decreased Activ Tolerance, Decreased UE Strength, Impaired Bed Mobility, Impaired Cognition, Impaired Funct Balance, Impaired I ADL's, Impaired Self-Care Skills, Restricted Funct UE ROM Speech-Language Pathology Patient was admitted to the ARU s/p brain surgery. Patient was informed during his stay here that the remaining tumor was malignant and he only had a short time left. Patient initially was making gains, however due to his medical status he has regressed. Patient is discharging to a local SNF this date. PT Shelter Goals Shelter Goals PT Shelter Goals Time Frame: Nov 04, 2020 Roll Left to Right (QC): 4 (SBA) Sit to Lying (QC): 4 (SBA) Lying-Sitting on Side/Bed(QC): 4 (SBA) Sit to Stand (QC): 4 (CGA) Chair/Orj-mv-Njbea Xfer(QC): 4 (CGA) Car Transfer (QC): 4 (CGA) Does the Patient Walk: No and Walking Goal IS indicated Walk 10 feet (QC): 3 (Yue) Walk 10ft-Uneven Surface(QC): 88 Walk 50ft with 2 Turns (QC): 3 (Yue) Walk 150 ft (QC): 88 Wheel 50 feet with 2 turns (QC: 6 1 Step (curb) (QC): 88 4 Steps (QC): 88 12 Steps (QC): 88 Picking up an Object (QC): 88 OT Shelter Goals Shelter Goals Time Frame: Nov 05, 2020 Eating (QC): 6 Oral Hygiene (QC): 6 Shower/Bathe Self (QC): 5 Upper Body Dressing (QC): 6 Lower Body Dressing (QC): 3 On/Off Footwear (QC): 5 Toileting Hygiene (QC): 6 Toilet/Commode Transfer (QC): 4 (CGA) Additional Goals: 1-Demonstrate ADL Tasks, 2-Verbalize Understanding, 3- ImproveStrength/Jerome 1=Demonstrate adherence to instructed precautions during ADL tasks. 2=Patient will verbalize/demonstrate understanding of assistive devices/modifications for ADL. 3=Patient will improve strength/tolerance for activity to enable patient to perform ADL's. Speech Shelter Goals Shelter Goals Patient will improve expressive communication to meet wants/needs. SABIHA RYAN Oct 31, 2020 09:56
[2020-10-31] MEDS: MICONAZOLE 2% POWDER (DESENEX AF) 90 GM TOP SCH (12:52)
--- NOTE | 2020-10-31 14:05 | NUR ---
REPORT CALLED TO MARCELL LILLY NURSE. Addendum: 10/31/20 at 1530 by JONO LI RN REPORT GIVEN TO NENO ROSAS
[2020-10-31] MEDS: HYDROcodone/APAP 5 MG/325 MG (LORTAB) TAB PO PRN (15:02)
--- NOTE | 2020-10-31 15:05 | NUR ---
[facility] of [facility] instructions and accurately returns instructions upon questioning. Copy of Post-Discharge Instructions given to . EVANGELINA MATTHEWS IS able to manage continuing needs after discharge WITH [facility]. Patients belongings returned to . Patient discharged from [facility]- on 10/31/20 at 1505 . EVANGELINA MATTHEWS left floor via [facility] AND EMS PER AMBULANCE, accompanied by EMS STAFF.
--- NOTE | 2020-10-31 15:05 | NUR ---
AMBULANCE HERE AND LEFT FOR [facility] [place] PER EMS AND [facility].
--- NOTE | 2020-10-31 15:09 | NUR ---
CM/SS DISCHARGE Patient discharged today to [facility] under Hospice services with [facility] agency via [facility]. Dr. Velásquez agreed to continue as provider for patient and [facility] and [facility] were updated. Faxed orders to [facility] and to [facility], continuum of care packet prepared to accompany patient. Oil Heater Operator facilitated that patient's family will be able to be with him at the fpc, at least today. They will have Covid tests and wear full PPE. Updated patient that he would get to see his which he has pined for. Patient will be admitted under [facility] Terminal Care and [place] is obligated to provide that information to [facility]. Patient's personal possessions were given to his family since EMS would not transport due to infection control. Unit RN updated intermittently of timelines.
--- NOTE | 2020-10-31 15:36 | Therapy Team Discharge Summary ---
Therapy Discharge Summary Discharge Recommendations Date of Discharge Physical Therapy Patient came to rehab with brain tumor, craniotomy. Upon evaluation patient performed bed mobility with min assist, supine <-> sit mod assist, ,sit <-> stand mod assist, transfers mod assist to the right side and min assist to the left side, car transfer mod assist, no ambulation and was dependent for WC mobility. Patient has been performing bed mobility and transfer training, balance and endurance training, functional strengthening, gait training, and education. Patient has made poor progress and has growing medical complications. Now, patient performs bed mobility and transfers with max assist, car transfer max assist, propels WC 150' with max assist. 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 Patient is being discharged today and will be discharged from PT at this time. Occupational Therapy Decreased Activ Tolerance, Decreased UE Strength, Impaired Bed Mobility, Impaired Coordination, Impaired Funct Balance, Impaired I ADL's, Impaired Self- Care Skills, Restricted Funct UE ROM PT Pharmacist In Charge Owner Goals Pharmacist In Charge Owner Goals PT Fdc Goals Time Frame: Nov 04, 2020 Roll Left to Right (QC): 4 (SBA) Sit to Lying (QC): 4 (SBA) Lying-Sitting on Side/Bed(QC): 4 (SBA) Sit to Stand (QC): 4 (CGA) Chair/Caa-je-Qvymw Xfer(QC): 4 (CGA) Car Transfer (QC): 4 (CGA) Does the Patient Walk: No and Walking Goal IS indicated Walk 10 feet (QC): 3 (Yue) Walk 10ft-Uneven Surface(QC): 88 Walk 50ft with 2 Turns (QC): 3 (Yue) Walk 150 ft (QC): 88 Wheel 50 feet with 2 turns (QC: 6 1 Step (curb) (QC): 88 4 Steps (QC): 88 12 Steps (QC): 88 Picking up an Object (QC): 88 OT Pharmacist In Charge Owner Goals Fdc Goals Time Frame: Nov 05, 2020 Eating (QC): 6 (not met) Oral Hygiene (QC): 6 (not met) Shower/Bathe Self (QC): 5 (not met) Upper Body Dressing (QC): 6 (not met) Lower Body Dressing (QC): 3 (not met) On/Off Footwear (QC): 5 (not met) Toileting Hygiene (QC): 6 (notmet) Toilet/Commode Transfer (QC): 4 (CGA) Additional Goals: 1-Demonstrate ADL Tasks, 2-Verbalize Understanding, 3-ImproveStrength/Jerome 1=Demonstrate adherence to instructed precautions during ADL tasks. 2=Patient will verbalize/demonstrate understanding of assistive devices/modifications for ADL. 3=Patient will improve strength/tolerance for activity to enable patient to perform ADL's. Speech Pharmacist In Charge Owner Goals Fdc Goals Patient will improve expressive communication to meet wants/needs. ALMITA MARTINEZ PT Oct 31, 2020 15:36
--- NOTE | 2020-11-01 15:08 | Therapy Team Discharge Summary ---
Therapy Discharge Summary Discharge Recommendations Date of Discharge Oct 31, 2020 at 15:05 Occupational Therapy Pt admitted to ARU s/p craniotomy. At OF, pt was independent with I/ADLS and functional mobility. Upon initial evaluation, pt was independent with feeding, SBA oral care, min A showering, set up upper body dressing, total assist lower body dressing, max A footwear and mod A toileting. OT txs focused on increasing safety and independence with ADLs and functional mobility, and increasing endurance and strength BUEs. Pt made poor progress towards goals due to increased medical complexity. Pt did not meet any LTGs. At discharge, pt was set up with feeding, SBA oral care, total assist showering, max A upper body dressing, total assist lower body dressing, total assist footwear, and total assist toileting. Pt discharged from facility, d/c from OT. Decreased Activ Tolerance, Decreased UE Strength, Impaired Bed Mobility, Impaired Coordination, Impaired Funct Balance, Impaired I ADL's, Impaired Self- Care Skills, Restricted Funct UE ROM PT Wood Carver Goals Wood Carver Goals PT Half-Way Goals Time Frame: Nov 04, 2020 Roll Left to Right (QC): 4 (SBA) Sit to Lying (QC): 4 (SBA) Lying-Sitting on Side/Bed(QC): 4 (SBA) Sit to Stand (QC): 4 (CGA) Chair/Tpd-rh-Bikuc Xfer(QC): 4 (CGA) Car Transfer (QC): 4 (CGA) Does the Patient Walk: No and Walking Goal IS indicated Walk 10 feet (QC): 3 (Yue) Walk 10ft-Uneven Surface(QC): 88 Walk 50ft with 2 Turns (QC): 3 (Yue) Walk 150 ft (QC): 88 Wheel 50 feet with 2 turns (QC: 6 1 Step (curb) (QC): 88 4 Steps (QC): 88 12 Steps (QC): 88 Picking up an Object (QC): 88 OT Wood Carver Goals Half-Way Goals Time Frame: Nov 05, 2020 Eating (QC): 6 (not met) Oral Hygiene (QC): 6 (not met) Shower/Bathe Self (QC): 5 (not met) Upper Body Dressing (QC): 6 (not met) Lower Body Dressing (QC): 3 (not met) On/Off Footwear (QC): 5 (not met) Toileting Hygiene (QC): 6 (notmet) Toilet/Commode Transfer (QC): 4 (CGA) Additional Goals: 1-Demonstrate ADL Tasks, 2-Verbalize Understanding, 3- ImproveStrength/Jerome 1=Demonstrate adherence to instructed precautions during ADL tasks. 2=Patient will verbalize/demonstrate understanding of assistive devices/modifications for ADL. 3=Patient will improve strength/tolerance for activity to enable patient to perform ADL's. Speech Half-Way Goals Wood Carver Goals Patient will improve expressive communication to meet wants/needs. ALBERTO VALENCIA OT Nov 01, 2020 15:08
== END 2020-10-31 15:05 | disposition hospice, inpatient (51) | DRG 55 ==
PROVIDERS: ADMIT Internal Medicine; ATTEND Internal Medicine
DX: C71.8 Malignant neoplasm of overlapping sites of brain (principal); G81.01 Flaccid hemiplegia affecting right dominant side; R47.01 Aphasia; R29.810 Facial weakness; R15.9 Full incontinence of feces; R32 Unspecified urinary incontinence; G47.33 Obstructive sleep apnea (adult) (pediatric); Z66 Do not resuscitate; Z20.822 Contact with and (suspected) exposure to COVID-19; S46.011D Strain of muscle(s) and tendon(s) of the rotator cuff of right shoulder, subsequent encounter; K59.00 Constipation, unspecified; I10 Essential (primary) hypertension; F32.9 Major depressive disorder, single episode, unspecified; N40.1 Benign prostatic hyperplasia with lower urinary tract symptoms; M54.5 Low back pain; E78.00 Pure hypercholesterolemia, unspecified; B00.1 Herpesviral vesicular dermatitis; Z87.891 Personal history of nicotine dependence; Z79.899 Other long term (current) drug therapy; Z80.9 Family history of malignant neoplasm, unspecified; V29.9XXD Motorcycle rider (driver) (passenger) injured in unspecified traffic accident, subsequent encounter
CPT/HCPCS: 36415; 80053; 85007; 85025; 85027; 87635